=== PATIENT | male | born 1940 | race Caucasian/White ===

== ENCOUNTER → 2020-04-03 11:09 | Outpatient (BNVA) | payer MEDICARE, SELFPAY | PROVIDERS: PCP Internal Medicine Cardiovascular Disease; Referring Provider Internal Medicine Cardiovascular Disease; Visit Provider Internal Medicine | DX: I48.0 Paroxysmal atrial fibrillation (principal); Z51.81 Encounter for therapeutic drug level monitoring; Z79.01 Long term (current) use of anticoagulants | CPT/HCPCS: 85610; 99211 ==

== ENCOUNTER 2020-04-03 18:49 | Outpatient (REF) | payer MEDICARE, SELFPAY | END 2020-04-03 18:50 | disposition home or self-care (01) | LOC: HO.LNP 18:49 | PROVIDERS: Visit Provider Internal Medicine | DX: Z79.01 Long term (current) use of anticoagulants (principal) ==

== ENCOUNTER 2020-04-16 13:12 | Outpatient (REF) | payer MEDICARE, SELFPAY ==
--- NOTE | 2020-04-16 | US_ITS ---
EXAMINATION: NONINVASIVE ASSESSMENT OF THE ARTERIES OF BOTH LOWER EXTREMITIES ? CLINICAL INFORMATION: Claudication, peripheral vascular disease COMPARISON: None TECHNIQUE: The ankle/brachial indices of the distal posterior tibial and the dorsalis pedis arteries were obtained of the lower extremity arterial system bilaterally; along with pressures and pulse volume recordings at the ankle and duplex Doppler techniques of the common femoral, proximal femoral and proximal profunda arteries. The study was performed at rest. ? FINDINGS AT REST:? RIGHT LE. Right Ankle-Brachial Index: 1.23 (higher of the DP/PT) >0.97-1.25 = normal - no significant arterial disease 0.75-0.96 = mild peripheral arterial disease 0.50-0.74 = moderate peripheral arterial disease <0.50 = severe peripheral arterial disease <0.30 = critical arterial disease 2. SEGMENTAL PRESSURES: Ankle: PT 200 DP 200 3. PVR WAVEFORMS: Ankle: Normal 4. DIRECT DUPLEX: Common femoral: Biphasic, no stenosis Proximal femoral: Triphasic, no stenosis Mid femoral: Triphasic, no stenosis Distal femoral: Triphasic, no stenosis Proximal profunda: Triphasic, no stenosis Popliteal: Triphasic, atherosclerotic plaque with mild stenosis. Posterior tibial: Monophasic, atherosclerotic plaque with mild stenosis. LEFT LE. Left Ankle-Brachial Index: 1.23 (higher of the DP/PT) >0.97-1.25 = normal - no significant arterial disease 0.75-0.96 = mild peripheral arterial disease 0.50-0.74 = moderate peripheral arterial disease <0.50 = severe peripheral arterial disease <0.30 = critical arterial disease 2. SEGMENTAL PRESSURES: Ankle: PT 200 DP 200 3. PVR WAVEFORMS: Ankle: Normal 4. DIRECT DUPLEX: Common femoral: Triphasic, no stenosis Proximal femoral: Biphasic, no stenosis Mid femoral: Triphasic, no stenosis Distal femoral: Triphasic, no stenosis Proximal profunda: Triphasic, no stenosis Popliteal: Triphasic, no stenosis Posterior tibial: Monophasic, no stenosis There is a 4.6 x 2.2 x 4.1 cm Cerna's cyst in the left popliteal fossa. ? IMPRESSION: 1. Extensive atherosclerotic calcification throughout the arteries of the bilateral lower extremities. 2. Mild stenosis in the right popliteal and posterior tibial arteries.
--- NOTE | 2020-04-16 | US_ITS ---
EXAMINATION: US EXTRACRANIAL CAROTID DUPLEX, BILATERAL CLINICAL INFORMATION: Asymptomatic bilateral carotid artery stenosis COMPARISON: None TECHNIQUE: Real-time ultrasound and Doppler techniques (integrating B-mode 2-D vascular images, Doppler spectral analysis and color-flow Doppler imaging) were utilized to interrogate the extracranial carotid arteries, the vertebral arteries and proximal subclavian arteries bilaterally. The degree of stenosis is determined by criteria similar to NASCET. FINDINGS: Right Side: 1. There is calcified atherosclerotic plaque seen in the bifurcation/proximal ICA region. 2. The common carotid artery PSV proximally is 110 cm/s and distally 90.9 cm/s. 3. The proximal internal carotid artery velocities are 92.6 cm/s systolic and 17.6 cm/s diastolic. 4. The proximal external carotid artery PSV is 172 cm/s. 5. The vertebral artery shows antegrade flow. 6. The subclavian artery waveforms are normal. Left Side: 1. There is also atherosclerotic plaque seen in the bifurcation/proximal ICA region. 2. The common carotid artery PSV proximally is 112 cm/s and distally 1 cm/s. 3. The proximal internal carotid artery velocities are 161 cm/s systolic and 31.4 cm/s diastolic. There is flow artifact overlying the plaque within the proximal ICA. 4. The proximal external carotid artery PSV is 233 cm/s. 5. The vertebral artery shows antegrade flow. 6. The subclavian artery waveforms are normal. IMPRESSION: 1. RIGHT: Minimal, non-hemodynamically significant stenosis of the proximal right internal carotid artery corresponding to a 0-49% stenosis by velocity criteria. 2. LEFT: Moderate, hemodynamically significant stenosis of the proximal left internal carotid artery corresponding to a 50-79% stenosis by velocity criteria.
== END 2020-04-16 13:13 | disposition home or self-care (01) ==
LOC: HO.US 13:12
PROVIDERS: PCP Internal Medicine; Visit Provider Surgery Vascular Surgery
DX: I73.9 Peripheral vascular disease, unspecified (principal); I65.23 Occlusion and stenosis of bilateral carotid arteries
CPT/HCPCS: 93880; 93923; 93925

== ENCOUNTER → 2020-04-24 11:12 | Outpatient (BNVA) | payer MEDICARE, SELFPAY | PROVIDERS: PCP Internal Medicine; Visit Provider Internal Medicine | DX: I48.0 Paroxysmal atrial fibrillation (principal); Z51.81 Encounter for therapeutic drug level monitoring; Z79.01 Long term (current) use of anticoagulants | CPT/HCPCS: 85610; 99211 ==

== ENCOUNTER 2020-04-27 13:21 | Outpatient (REF) | payer MEDICARE, SELFPAY ==
--- NOTE | 2020-04-27 | XR_ITS ---
EXAMINATION: XR ABDOMEN KUB CLINICAL INDICATION: Renal stone COMPARISON: Previous KUB April 2019, renal ultrasound May [address] of the abdomen and pelvis April 2013 TECHNIQUE: AP view of the abdomen. FINDINGS: There are several densities projecting over the left kidney questionable for stones. The largest measures 3 x 10 mm and projects over the upper pole. No right renal stone is seen. The bowel gas pattern is normal. There are degenerative changes of the spine and hip joints. XR/XR KUB IMPRESSION: Question left renal stones.
== END 2020-04-27 13:22 | disposition home or self-care (01) ==
LOC: HO.HMGCX 13:21
PROVIDERS: PCP Internal Medicine; Visit Provider Physician Assistant Surgical
DX: N20.0 Calculus of kidney (principal)
CPT/HCPCS: 74018

== ENCOUNTER → 2020-05-15 11:19 | Outpatient (BNVA) | payer MEDICARE, SELFPAY | PROVIDERS: PCP Internal Medicine; Visit Provider Internal Medicine | DX: I48.0 Paroxysmal atrial fibrillation (principal); Z51.81 Encounter for therapeutic drug level monitoring; Z79.01 Long term (current) use of anticoagulants | CPT/HCPCS: 85610; 99211 ==

== ENCOUNTER → 2020-06-05 11:44 | Outpatient (BNVA) | payer MEDICARE, SELFPAY | PROVIDERS: PCP Internal Medicine; Visit Provider Internal Medicine | DX: I48.0 Paroxysmal atrial fibrillation (principal); Z51.81 Encounter for therapeutic drug level monitoring; Z79.01 Long term (current) use of anticoagulants | CPT/HCPCS: 85610; 99211 ==

== ENCOUNTER → 2020-06-09 08:48 | Outpatient (BNVA) | payer MEDICARE, SELFPAY | PROVIDERS: PCP Internal Medicine; Visit Provider Surgery Vascular Surgery | DX: I65.23 Occlusion and stenosis of bilateral carotid arteries (principal); I73.9 Peripheral vascular disease, unspecified | CPT/HCPCS: 99212 ==

== ENCOUNTER → 2020-06-23 11:16 | Outpatient (BNVA) | payer MEDICARE, SELFPAY | PROVIDERS: PCP Internal Medicine; Visit Provider Internal Medicine | DX: I48.0 Paroxysmal atrial fibrillation (principal); Z79.01 Long term (current) use of anticoagulants; Z51.81 Encounter for therapeutic drug level monitoring | CPT/HCPCS: 85610; 99211 ==

== ENCOUNTER → 2020-07-17 11:28 | Outpatient (BNVA) | payer MEDICARE, SELFPAY | PROVIDERS: PCP Internal Medicine; Visit Provider Internal Medicine | DX: I48.0 Paroxysmal atrial fibrillation (principal); Z51.81 Encounter for therapeutic drug level monitoring; Z79.01 Long term (current) use of anticoagulants | CPT/HCPCS: 85610; 99211 ==

== ENCOUNTER 2020-07-30 06:31 | Outpatient (REF) | payer MEDICARE, SELFPAY ==
[2020-07-30 11:31] LABS: Estimated Average Glucose 160 mg/dL; Hemoglobin A1c % 7.2 %
[2020-07-30 12:13] LABS: Cholesterol 143 mg/dL; HDL Cholesterol 31 mg/dL; LDL Cholesterol Calculated 80 mg/dl; Triglycerides 162 mg/dL
== END 2020-07-30 06:32 | disposition home or self-care (01) ==
LOC: HO.HMGCLDS 06:31
PROVIDERS: PCP Internal Medicine; Visit Provider Internal Medicine
DX: E11.9 Type 2 diabetes mellitus without complications (principal)
CPT/HCPCS: 36415; 80061; 83036

== ENCOUNTER → 2020-08-07 11:03 | Outpatient (BNVA) | payer MEDICARE, SELFPAY | PROVIDERS: PCP Internal Medicine; Visit Provider Internal Medicine | DX: I48.0 Paroxysmal atrial fibrillation (principal); Z51.81 Encounter for therapeutic drug level monitoring; Z79.01 Long term (current) use of anticoagulants | CPT/HCPCS: 85610; 99211 ==

== ENCOUNTER → 2020-09-04 11:08 | Outpatient (BNVA) | payer MEDICARE, SELFPAY | PROVIDERS: PCP Internal Medicine; Visit Provider Internal Medicine | DX: I48.0 Paroxysmal atrial fibrillation (principal); Z51.81 Encounter for therapeutic drug level monitoring; Z79.01 Long term (current) use of anticoagulants | CPT/HCPCS: 85610; 99211 ==

== ENCOUNTER → 2020-10-02 11:12 | Outpatient (BNVA) | payer MEDICARE, SELFPAY | PROVIDERS: PCP Internal Medicine; Visit Provider Internal Medicine | DX: I48.0 Paroxysmal atrial fibrillation (principal); Z51.81 Encounter for therapeutic drug level monitoring; Z79.01 Long term (current) use of anticoagulants | CPT/HCPCS: 85610; 99211 ==

== ENCOUNTER → 2020-10-30 11:14 | Outpatient (BNVA) | payer MEDICARE, SELFPAY | PROVIDERS: PCP Internal Medicine; Visit Provider Internal Medicine | DX: I48.0 Paroxysmal atrial fibrillation (principal); Z51.81 Encounter for therapeutic drug level monitoring; Z79.01 Long term (current) use of anticoagulants | CPT/HCPCS: 85610; 99211 ==

== ENCOUNTER → 2020-11-06 11:08 | Outpatient (BNVA) | payer MEDICARE, SELFPAY | PROVIDERS: PCP Internal Medicine; Visit Provider Internal Medicine | DX: I48.0 Paroxysmal atrial fibrillation (principal); Z79.01 Long term (current) use of anticoagulants; Z51.81 Encounter for therapeutic drug level monitoring | CPT/HCPCS: 85610; 99211 ==

== ENCOUNTER → 2020-11-16 12:32 | Outpatient (BNVA) | payer MEDICARE, SELFPAY | PROVIDERS: PCP Internal Medicine; Referring Provider Internal Medicine; Visit Provider Internal Medicine Cardiovascular Disease | DX: I48.0 Paroxysmal atrial fibrillation (principal); I10 Essential (primary) hypertension | CPT/HCPCS: 93005; 99212 ==

== ENCOUNTER → 2020-12-04 11:16 | Outpatient (BNVA) | payer MEDICARE, SELFPAY | PROVIDERS: PCP Internal Medicine; Visit Provider Internal Medicine | DX: I48.0 Paroxysmal atrial fibrillation (principal); Z51.81 Encounter for therapeutic drug level monitoring; Z79.01 Long term (current) use of anticoagulants | CPT/HCPCS: 85610; 99211 ==

== ENCOUNTER → 2021-01-01 11:12 | Outpatient (BNVA) | payer MEDICARE, SELFPAY | PROVIDERS: PCP Internal Medicine; Visit Provider Internal Medicine | DX: I48.0 Paroxysmal atrial fibrillation (principal); Z51.81 Encounter for therapeutic drug level monitoring; Z79.01 Long term (current) use of anticoagulants | CPT/HCPCS: 85610; 99211 ==

== ENCOUNTER → 2021-02-05 11:21 | Outpatient (BNVA) | payer MEDICARE, SELFPAY | PROVIDERS: PCP Internal Medicine; Visit Provider Internal Medicine | DX: I48.0 Paroxysmal atrial fibrillation (principal); Z51.81 Encounter for therapeutic drug level monitoring; Z79.01 Long term (current) use of anticoagulants | CPT/HCPCS: 85610; 99211 ==

== ENCOUNTER → 2021-03-05 11:19 | Outpatient (BNVA) | payer MEDICARE, SELFPAY | PROVIDERS: PCP Internal Medicine; Visit Provider Internal Medicine | DX: I48.0 Paroxysmal atrial fibrillation (principal); Z51.81 Encounter for therapeutic drug level monitoring; Z79.01 Long term (current) use of anticoagulants | CPT/HCPCS: 85610; 99211 ==

== ENCOUNTER → 2021-03-31 11:19 | Outpatient (BNVA) | payer MEDICARE, SELFPAY | PROVIDERS: PCP Internal Medicine; Visit Provider Internal Medicine | DX: I48.0 Paroxysmal atrial fibrillation (principal); Z51.81 Encounter for therapeutic drug level monitoring; Z79.01 Long term (current) use of anticoagulants | CPT/HCPCS: 85610; 99211 ==

== ENCOUNTER → 2021-04-16 11:15 | Outpatient (BNVA) | payer MEDICARE, SELFPAY | PROVIDERS: PCP Internal Medicine; Visit Provider Internal Medicine | DX: I48.0 Paroxysmal atrial fibrillation (principal); Z51.81 Encounter for therapeutic drug level monitoring; Z79.01 Long term (current) use of anticoagulants | CPT/HCPCS: 85610; 99211 ==

== ENCOUNTER → 2021-05-14 11:15 | Outpatient (BNVA) | payer MEDICARE, SELFPAY | PROVIDERS: PCP Internal Medicine; Visit Provider Internal Medicine | DX: I48.0 Paroxysmal atrial fibrillation (principal); Z51.81 Encounter for therapeutic drug level monitoring; Z79.01 Long term (current) use of anticoagulants | CPT/HCPCS: 85610; 99211 ==

== ENCOUNTER → 2021-06-11 11:19 | Outpatient (BNVA) | payer MEDICARE, SELFPAY | PROVIDERS: PCP Internal Medicine; Visit Provider Internal Medicine | DX: I48.0 Paroxysmal atrial fibrillation (principal); Z51.81 Encounter for therapeutic drug level monitoring; Z79.01 Long term (current) use of anticoagulants | CPT/HCPCS: 85610; 99211 ==

== ENCOUNTER 2021-07-01 09:40 | Outpatient (REF) | payer MEDICARE, SELFPAY ==
--- NOTE | ~2021-07-01 | US_ITS ---
EXAMINATION: US NONINVASIVE ASSESSMENT OF THE ARTERIES OF BOTH LOWER EXTREMITIES WITH ANKLE PRESSURE MEASUREMENTS, ANKLE BRACHIAL INDICES, PVR MEASUREMENTS US BILATERAL LOWER EXTREMITY DUPLEX CLINICAL INFORMATION: Bilateral claudication. TECHNIQUE: Ankle pressure measurements, ankle brachial indices and PVR tracings were obtained of the lower extremity arterial system bilaterally. In addition, duplex Doppler techniques with wave form analysis and measurement of velocities in the common femoral, profunda femoral, superficial femoral, popliteal and tibial arteries was performed. The study was performed only at rest. COMPARISON: 04/16/2020 FINDINGS: NONINVASIVE ASSESSMENT OF THE ARTERIES OF BOTH LOWER EXTREMITIES WITH ABIs: RIGHT LEG: Right ankle-brachial index: 1.13 though likely artificially elevated due to extensive vascular calcification. PVR (ankle): Dampened LEFT LEG: Ankle-brachial index: 1.13, though likely artificially elevated due to extensive vascular calcification. PVR (ankle): Dampened BILATERAL LOWER EXTREMITY DUPLEX ULTRASOUND: RIGHT LEG: Common femoral artery: 75 cm/s, Diastolic flow reversal: Yes Profunda femoris artery: 75.4 cm/s, Diastolic flow reversal: Yes Superficial femoral artery (proximal): 85.6 cm/s, Diastolic flow reversal: Yes Superficial femoral artery (mid): 104 cm/s, Diastolic flow reversal: Yes Superficial femoral artery (distal): 90.9 cm/s, Diastolic flow reversal: Yes Popliteal artery: 44.8 cm/s, Diastolic flow reversal: Yes Posterior tibial artery: 83.8 cm/s, Diastolic flow reversal: Yes LEFT LEG: Common femoral artery: 89.7 cm/s, Diastolic flow reversal: Yes Profunda femoris artery: 61.3 cm/s, Diastolic flow reversal: Yes Superficial femoral artery (proximal): 121 cm/s, Diastolic flow reversal: Yes Superficial femoral artery (mid): 108 cm/s, Diastolic flow reversal: Yes Superficial femoral artery (distal): 116 cm/s, Diastolic flow reversal: Yes Popliteal artery: 56.2 cm/s, Diastolic flow reversal: Yes Posterior tibial artery: 30.7 cm/s, Diastolic flow reversal: Yes ADDITIONAL: Within the left popliteal fossa is a 2.5 x 0.8 x 2.0 cm Cerna's cyst. US/US arterial duplex LE BI IMPRESSION: RIGHT LEG: CLIFFORD 1.13, though likely artificially elevated due to the extensive vascular calcification. No hemodynamically significant outflow stenosis identified on duplex. LEFT LEG: CLIFFORD 1.13, though likely artificially elevated due to the extensive vascular calcification. No hemodynamically significant outflow stenosis identified on duplex. CLIFFORD Reference: - >0.97-1.25 = normal - no significant arterial disease - 0.75-0.96 = mild peripheral arterial disease - 0.5-0.74 = moderate peripheral arterial disease - <0.50 = severe peripheral arterial disease
--- NOTE | ~2021-07-01 | US_ITS ---
EXAMINATION: US EXTRACRANIAL CAROTID DUPLEX, BILATERAL CLINICAL INFORMATION: Carotid artery stenosis. COMPARISON: 04/16/2020 and 12/21/2018. TECHNIQUE: Real-time ultrasound and Doppler techniques (integrating B-mode 2-D vascular images, Doppler spectral analysis and color-flow Doppler imaging) were utilized to interrogate the extracranial carotid arteries, the vertebral arteries and proximal subclavian arteries bilaterally. The degree of stenosis is determined by criteria similar to NASCET. FINDINGS: Right Side: 1. There is mild atherosclerotic plaque seen in the bifurcation/proximal ICA region. 2. The common carotid artery PSV proximally is 74.5 cm/s and distally 58.5 cm/s. 3. The proximal internal carotid artery velocities are 101 cm/s systolic and 15.2 cm/s diastolic. 4. The proximal external carotid artery PSV is 137 cm/s. 5. The vertebral artery shows antegrade flow. 6. The subclavian artery waveforms are normal. Left Side: 1. There is mild atherosclerotic plaque seen in the bifurcation/proximal ICA region. 2. The common carotid artery PSV proximally is 82.7 cm/s and distally 97.9 cm/s. 3. The proximal internal carotid artery velocities are 122 cm/s systolic and 23.6 cm/s diastolic. 4. The proximal external carotid artery PSV is 286 cm/s. 5. The vertebral artery shows antegrade flow. 6. The subclavian artery waveforms are normal. US/US carotid duplex BI IMPRESSION: 1. RIGHT: Minimal, non-hemodynamically significant stenosis of the proximal right internal carotid artery corresponding to a 0-49% stenosis by velocity criteria. 2. LEFT: Minimal, non-hemodynamically significant stenosis of the proximal left internal carotid artery corresponding to a 0-49% stenosis by velocity criteria. 3. There is a decrease in the severity of disease involving the left proximal internal carotid artery (degree of stenosis was previously measured at 50-79%). 4. Moderate, hemodynamically significant stenosis of the left external carotid artery. This is stable from the prior.
== END 2021-07-01 09:41 | disposition home or self-care (01) ==
LOC: HO.US 09:40
PROVIDERS: PCP Internal Medicine; Visit Provider Surgery Vascular Surgery
DX: I65.23 Occlusion and stenosis of bilateral carotid arteries (principal); I70.213 Atherosclerosis of native arteries of extremities with intermittent claudication, bilateral legs; Z86.73 Personal history of transient ischemic attack (TIA), and cerebral infarction without residual deficits
CPT/HCPCS: 93880; 93923; 93925

== ENCOUNTER → 2021-07-13 11:35 | Outpatient (BNVA) | payer MEDICARE, SELFPAY | PROVIDERS: PCP Internal Medicine; Visit Provider Internal Medicine | DX: I48.0 Paroxysmal atrial fibrillation (principal); Z51.81 Encounter for therapeutic drug level monitoring; Z79.01 Long term (current) use of anticoagulants | CPT/HCPCS: 85610; 99211 ==

== ENCOUNTER 2021-07-14 07:36 | Outpatient (REF) | payer MEDICARE, SELFPAY ==
[2021-07-14 12:16] LABS: Blood Urea Nitrogen 32 mg/dL (9-16); Calcium 9.3 mg/dL (8.4-10.2); Estimated Glomerular Filt Rate 44; Uric Acid 5.7 mg/dL (3.4-7.0)
[2021-07-14 12:38] LABS: Prostate Specific Antigen 4.31 ng/mL (<0.05-4.0)
== END 2021-07-14 07:37 | disposition home or self-care (01) ==
LOC: HO.HMGCLDS 07:36
PROVIDERS: PCP Internal Medicine; Visit Provider Urology
DX: N20.0 Calculus of kidney (principal); Z12.5 Encounter for screening for malignant neoplasm of prostate
CPT/HCPCS: 36415; 82310; 82565; 84153; 84520; 84550

== ENCOUNTER → 2021-07-20 08:52 | Outpatient (BNVA) | payer MEDICARE, SELFPAY | PROVIDERS: PCP Internal Medicine; Visit Provider Surgery Vascular Surgery | DX: I73.9 Peripheral vascular disease, unspecified (principal); I65.23 Occlusion and stenosis of bilateral carotid arteries | CPT/HCPCS: 99212 ==

== ENCOUNTER → 2021-07-23 11:19 | Outpatient (BNVA) | payer MEDICARE, SELFPAY | PROVIDERS: PCP Internal Medicine; Visit Provider Internal Medicine | DX: I48.0 Paroxysmal atrial fibrillation (principal); Z51.81 Encounter for therapeutic drug level monitoring; Z79.01 Long term (current) use of anticoagulants | CPT/HCPCS: 85610; 99211 ==

== ENCOUNTER → 2021-08-13 11:33 | Outpatient (BNVA) | payer MEDICARE, SELFPAY | PROVIDERS: PCP Internal Medicine; Visit Provider Internal Medicine | DX: I48.0 Paroxysmal atrial fibrillation (principal); Z51.81 Encounter for therapeutic drug level monitoring; Z79.01 Long term (current) use of anticoagulants | CPT/HCPCS: 85610; 99211 ==

== ENCOUNTER → 2021-09-10 11:12 | Outpatient (BNVA) | payer MEDICARE, SELFPAY | PROVIDERS: PCP Internal Medicine; Visit Provider Internal Medicine | DX: I48.0 Paroxysmal atrial fibrillation (principal); Z51.81 Encounter for therapeutic drug level monitoring; Z79.01 Long term (current) use of anticoagulants | CPT/HCPCS: 85610; 99211 ==

== ENCOUNTER → 2021-10-08 11:13 | Outpatient (BNVA) | payer MEDICARE, SELFPAY | PROVIDERS: PCP Internal Medicine; Visit Provider Internal Medicine | DX: I48.0 Paroxysmal atrial fibrillation (principal); Z51.81 Encounter for therapeutic drug level monitoring; Z79.01 Long term (current) use of anticoagulants | CPT/HCPCS: 85610; 99211 ==

== ENCOUNTER → 2021-11-05 11:12 | Outpatient (BNVA) | payer MEDICARE, SELFPAY | PROVIDERS: PCP Internal Medicine; Visit Provider Internal Medicine | DX: I48.0 Paroxysmal atrial fibrillation (principal); Z79.01 Long term (current) use of anticoagulants; Z51.81 Encounter for therapeutic drug level monitoring | CPT/HCPCS: 85610; 99211 ==

== ENCOUNTER → 2021-11-10 09:13 | Outpatient (REF) | payer MEDICARE, SELFPAY ==
--- NOTE | 2021-11-10 09:20 | CA_ITS ---
Transthoracic Echocardiogram Patient (Last, First, Middle): Frankie Valles D Gender: Male Date of : 1940 Age: 81 Procedure Date: 11/10/2021 Procedure Type: Transthoracic Echocardiogram Location: OP Height: 172.72 cm Weight: 88.45 kg BSA: 2.02 m2 Heart Rate: bpm BP: 11 / 60 mmHg Cart Pusher: AKUA Referring MD: Danis Garsia MD Radio News Writer: Danis Garsia MD Symptoms: I48.0 - Paroxysmal atrial fibrillation Study Quality: Adequate ECG Rhythm: Bradycardia Conclusions: - 1. Normal LV systolic function with impaired relaxation filling pattern 2. Normal cardiac valvular Doppler 3. No gross pericardial effusion Findings Left Ventricle Normal left ventricular size, thickness, and systolic function. The visually estimated ejection fraction is between 60-65%. Spectral Doppler is indicative of an impaired relaxation filling pattern. Right Ventricle Mildly increased right ventricular cavity size. Atria The left atrium was not well visualized. Interatrial shunt cannot be excluded. The right atrium was not well visualized. Aortic Valve The aortic valve was not well visualized. There is mild calcification of the aortic valve. There is no aortic valve stenosis. There is no aortic valve regurgitation. Mitral Valve Likely normal mitral valve structure and function. There is trace mitral valve regurgitation. There is no mitral valve stenosis. Pulmonic Valve The pulmonic valve was not well visualized. Tricuspid Valve The tricuspid valve was not well visualized. Tricuspid regurgitation envelope is inadequate for calculation of right ventricular systolic pressure. Great Vessels The aorta was not well visualized. The pulmonary artery was not well visualized. Venous The inferior vena cava is normal in size and collapses greater than 50% with inspiration. Pericardium/Pleural There is no evidence of pericardial effusion. Prior Study Comparison No significant change compared to prior study dated: 12/21/2018. Measurements 2D Linear Measurements IVSd: 0.83 0.6-0.9/0.6-1.0 cm LVIDd: 4.74 3.9-5.3/4.2-5.9 cm LVIDd Index: 2.35 2.4-3.2/2.2-3.1 cm/m2 LVIDs: 3.35 2.0-3.6 cm LVPWd: 0.77 0.7-1.1 cm LA Diam: 3.70 2.7-3.8/3.0-4.0 cm LAIDs Index: 1.83 1.5-2.3 cm/m2 LV Mass: 153.78 67-162/88-224 g LV Mass Index: 76.13 43-95/49-115 g/m2 LVOT Diam: 2.10 3.0+(-)1.3 cm 2D Systolic Function EF 4C: 57.30 >55% EF 2C: 66.20 >55% EF BiP: 61.50 >55% Mitral Valve MV Pk E: 0.84 MV PK A: 0.75 MV Decel Time: 190.00 E/A: 1.10 E'Lateral: 10.70 E'Medial: 6.96 E/E' Med: 12.10 E/E' Lat: 7.90 PHT: 56.00 MVA PHT: 3.93 Decel [place]: 4.44 Aortic Valve AoV Pk Derrek: 0.94 AoV Mn Derrek: 0.63 AoV VTI: 0.23 AoV Pk Grad: 4.00 Aov Mn Grad: 2.00 DELMI Cont.VTI: 3.19 LVOT LVOT Pk Derrek: 0.89 LVOT Mn Derrek: 0.68 LVOT VTI: 0.22 LVOT Pk Grad: 3.00 LVOT Mn Grad: 2.00 LVOT Diam: 2.10 LVOT Area: 3.46 Diastolic Function MV Pk E: 0.84 MV Pk A: 0.75 E/A: 1.10 E'Medial: 6.96 E/E' Med: 12.10 E' Laterial: 10.70 E/E' Lat: 7.90 Right Ventricle TAPSE (mm): 24.40 TVS' Derrek: 10.10 Tricuspid Valve RA Press: 8.00 Great Vessels Aorta Sinus of Valsalva: 3.18 2.0-3.5 cm Ao Asc: 3.50 2.1-3.4 cm Pulmonary Valve PV Pk Derrek: 0.93 Peak PV Grad: 3.00 Updated in Other Vendor System with Status of Final Danis Garsia MD electronically signed on 11/11/2021 5:19:27 PM with status of Final
== END ==
LOC: HO.CARD 09:13
PROVIDERS: Visit Provider Internal Medicine Cardiovascular Disease
DX: I48.0 Paroxysmal atrial fibrillation (principal)
CPT/HCPCS: 93306; Q9957

== ENCOUNTER → 2021-11-16 09:45 | Outpatient (BNVA) | payer MEDICARE, SELFPAY | PROVIDERS: PCP Internal Medicine; Referring Provider Internal Medicine; Visit Provider Internal Medicine Cardiovascular Disease | DX: I48.0 Paroxysmal atrial fibrillation (principal); I10 Essential (primary) hypertension | CPT/HCPCS: 93005; 99212 ==

== ENCOUNTER → 2021-11-19 11:33 | Outpatient (BNVA) | payer MEDICARE, SELFPAY | PROVIDERS: PCP Internal Medicine; Visit Provider Internal Medicine | DX: I48.0 Paroxysmal atrial fibrillation (principal); Z79.01 Long term (current) use of anticoagulants; Z51.81 Encounter for therapeutic drug level monitoring | CPT/HCPCS: 85610; 99211 ==

== ENCOUNTER 2021-12-16 06:25 | Outpatient (REF) | payer MEDICARE, SELFPAY ==
[2021-12-16 11:09] LABS: MANUAL DIFF FLAG NO
[2021-12-16 11:23] LABS: Basophils Percent Auto 0.2 % (0-2); Eosinophils Absolute Auto 0.1 X10*3/uL (0.0-0.4); Eosinophils Percent Auto 3.1 % (0-4); Hematocrit 35.2 % (42.0-52.0); Hemoglobin 11.4 g/dl (14.0-18.0); Imm Gran Abs Auto 0.01 X10*3/uL (0.00-0.03); Imm Gran Pct Auto 0.2 % (0.0-0.4); Lymphocytes Absolute Auto 1.1 X10*3/uL (1.2-4.9); Lymphocytes Percent Auto 24.6 % (20-40); Mean Corpuscular HGB Conc 32.4 g/dl (31.0-36.0); Mean Corpuscular Hemoglobin 31.8 pg (27.0-33.0); Mean Corpuscular Volume 98.1 fL (80.0-98.0); Mean Platelet Volume 10.9 fL (9.4-12.4); Monocytes Absolute Auto 0.4 X10*3/uL (0.1-1.2); Monocytes Percent Auto 9.4 % (2-11); Neutrophils Absolute Auto 2.8 x10*3/uL (2.0-8.3); Neutrophils Percent Auto 62.5 % (45-73); Platelet Count 138 X10*3/uL (160-400); Red Blood Count 3.59 X10*6/uL (4.60-5.80); Red Cell Distribution Width 13.4 % (11.0-16.0); White Blood Count 4.5 X10*3/uL (4.8-10.8)
[2021-12-16 11:41] LABS: Alanine Aminotransferase 14 U/L (0-40); Albumin Level 3.8 g/dL (3.5-5.0); Alkaline Phosphatase 55 U/L (39-117); Anion Gap 12 (12-20); Aspartate Amino Transferase 20 U/L (5-37); Bilirubin Total 0.5 mg/dL (0.0-1.0); Blood Urea Nitrogen 33 mg/dL (9-16); Calcium 8.7 mg/dL (8.4-10.2); Carbon Dioxide 23 mmol/L (22-29); Chloride 108 mmol/L (96-108); Cholesterol 142 mg/dL; Estimated Glomerular Filt Rate 41; Glucose Fasting 114 mg/dL (60-99); HDL Cholesterol 30 mg/dL; LDL Cholesterol Calculated 84 mg/dl; Potassium 4.5 mmol/L (3.3-5.1); Sodium 138 mmol/L (135-145); Total Protein 6.2 g/dL (6.5-8.0); Triglycerides 143 mg/dL
[2021-12-16 11:47] LABS: Creatinine Urine 134.44 mg/dL; Microalbum/Creatinine Ratio Ur 346.6 ug/mg cr
[2021-12-16 11:51] LABS: Estimated Average Glucose 166 mg/dL; Hemoglobin A1c % 7.4 %
[2021-12-16 12:03] LABS: Thyroid Stimulating Hormone 6.09 uIU/mL (0.32-4.0)
== END 2021-12-16 06:26 | disposition home or self-care (01) ==
LOC: HO.HMGCLDS 06:25
PROVIDERS: Visit Provider Internal Medicine
DX: Z00.00 Encounter for general adult medical examination without abnormal findings (principal); Z13.0 Encounter for screening for diseases of the blood and blood-forming organs and certain disorders involving the immune mechanism; E11.69 Type 2 diabetes mellitus with other specified complication; E66.01 Morbid (severe) obesity due to excess calories
CPT/HCPCS: 36415; 80053; 80061; 82043; 83036; 84443; 85025

== ENCOUNTER → 2021-12-17 11:18 | Outpatient (BNVA) | payer MEDICARE, SELFPAY | PROVIDERS: PCP Internal Medicine; Visit Provider Internal Medicine | DX: I48.0 Paroxysmal atrial fibrillation (principal); Z79.01 Long term (current) use of anticoagulants; Z51.81 Encounter for therapeutic drug level monitoring | CPT/HCPCS: 85610; 99211 ==

== ENCOUNTER → 2022-01-14 11:22 | Outpatient (BNVA) | payer MEDICARE, SELFPAY | PROVIDERS: PCP Internal Medicine; Visit Provider Internal Medicine | DX: I48.0 Paroxysmal atrial fibrillation (principal); Z51.81 Encounter for therapeutic drug level monitoring; Z79.01 Long term (current) use of anticoagulants | CPT/HCPCS: 85610; 99211 ==

== ENCOUNTER → 2022-01-28 11:11 | Outpatient (BNVA) | payer MEDICARE, SELFPAY | PROVIDERS: PCP Internal Medicine; Visit Provider Internal Medicine | DX: I48.0 Paroxysmal atrial fibrillation (principal); Z79.01 Long term (current) use of anticoagulants; Z51.81 Encounter for therapeutic drug level monitoring | CPT/HCPCS: 85610; 99211 ==

== ENCOUNTER → 2022-02-25 11:13 | Outpatient (BNVA) | payer MEDICARE, SELFPAY | PROVIDERS: PCP Internal Medicine; Visit Provider Internal Medicine | DX: I48.0 Paroxysmal atrial fibrillation (principal); Z79.01 Long term (current) use of anticoagulants; Z51.81 Encounter for therapeutic drug level monitoring | CPT/HCPCS: 85610; 99211 ==

== ENCOUNTER → 2022-03-25 11:23 | Outpatient (BNVA) | payer MEDICARE, SELFPAY | PROVIDERS: PCP Internal Medicine; Visit Provider Internal Medicine | DX: I48.0 Paroxysmal atrial fibrillation (principal); Z79.01 Long term (current) use of anticoagulants; Z51.81 Encounter for therapeutic drug level monitoring | CPT/HCPCS: 85610; 99211 ==

== ENCOUNTER 2022-03-28 08:35 | Emergency (ER) | payer MEDICARE, SELFPAY ==
--- NOTE | ~2022-03-28 | XR_ITS ---
EXAMINATION: XR CHEST CLINICAL INFORMATION: Upper respiratory tract infection COMPARISON: None TECHNIQUE: 2 views of the chest were obtained. FINDINGS: Lungs grossly clear. There may be slight chronic blunting at the static sulci. Heart size normal with normal caliber pulmonary vessels. There is spondylitic change in the thoracic spine. XR/XR chest 2V IMPRESSION: No active disease.
[2022-03-28 09:36] VITALS: BP 141/64; PULSE 73; RESP 20; TEMP 37.6; O2SAT 92; BMI 29.6
[2022-03-28 09:53] LABS: COVID-19 Test Positive (Negative); IDNOW Serial# 9DB6401D
[2022-03-28 10:01] LABS: MANUAL DIFF FLAG NO
[2022-03-28 10:07] LABS: Basophils Percent Auto 0.2 % (0-2); Eosinophils Percent Auto 0.2 % (0-4); Hematocrit 39.1 % (42.0-52.0); Hemoglobin 12.7 g/dl (14.0-18.0); Imm Gran Abs Auto 0.01 X10*3/uL (0.00-0.03); Imm Gran Pct Auto 0.2 % (0.0-0.4); Lymphocytes Absolute Auto 0.6 X10*3/uL (1.2-4.9); Lymphocytes Percent Auto 9.7 % (20-40); Mean Corpuscular HGB Conc 32.5 g/dl (31.0-36.0); Mean Corpuscular Hemoglobin 31.8 pg (27.0-33.0); Mean Platelet Volume 10.7 fL (9.4-12.4); Monocytes Absolute Auto 0.7 X10*3/uL (0.1-1.2); Monocytes Percent Auto 11.9 % (2-11); Neutrophils Absolute Auto 4.5 x10*3/uL (2.0-8.3); Neutrophils Percent Auto 77.8 % (45-73); Platelet Count 111 X10*3/uL (160-400); Red Blood Count 3.99 X10*6/uL (4.60-5.80); Red Cell Distribution Width 13.4 % (11.0-16.0); White Blood Count 5.8 X10*3/uL (4.8-10.8)
[2022-03-28 10:16] LABS: Glucose, Whole Blood 119 mg/dL (60-115)
[2022-03-28 10:16] LABS: Anion Gap 16 (12-20); Blood Urea Nitrogen 23 mg/dL (9-16); Calcium 8.7 mg/dL (8.4-10.2); Carbon Dioxide 22 mmol/L (22-29); Chloride 103 mmol/L (96-108); Creatinine Clr Calc Pharmacy 40.6; Estimated Glomerular Filt Rate 44; Glucose Random 121 mg/dL (60-115); Potassium 4.6 mmol/L (3.3-5.1); Sodium 136 mmol/L (135-145)
== END 2022-03-28 16:11 | disposition left against medical advice (07) ==
PROVIDERS: Emergency Provider Emergency Medicine; PCP Internal Medicine
DX: U07.1 COVID-19 (principal); E11.649 Type 2 diabetes mellitus with hypoglycemia without coma; R50.9 Fever, unspecified; I10 Essential (primary) hypertension; E78.5 Hyperlipidemia, unspecified; I48.0 Paroxysmal atrial fibrillation; Z79.01 Long term (current) use of anticoagulants
CPT/HCPCS: 71046; 80048; 82947; 85025; 87635; 99281; 99283

== ENCOUNTER → 2022-04-22 11:18 | Outpatient (BNVA) | payer MEDICARE, SELFPAY | PROVIDERS: PCP Internal Medicine; Visit Provider Internal Medicine | DX: I48.0 Paroxysmal atrial fibrillation (principal); Z51.81 Encounter for therapeutic drug level monitoring; Z79.01 Long term (current) use of anticoagulants | CPT/HCPCS: 85610; 99211 ==

== ENCOUNTER → 2022-05-06 11:17 | Outpatient (BNVA) | payer MEDICARE, SELFPAY | PROVIDERS: PCP Internal Medicine; Visit Provider Internal Medicine | DX: I48.0 Paroxysmal atrial fibrillation (principal); Z79.01 Long term (current) use of anticoagulants; Z51.81 Encounter for therapeutic drug level monitoring | CPT/HCPCS: 85610; 99211 ==

== ENCOUNTER → 2022-06-17 11:16 | Outpatient (BNVA) | payer MEDICARE, SELFPAY | PROVIDERS: PCP Internal Medicine; Visit Provider Internal Medicine | DX: I48.0 Paroxysmal atrial fibrillation (principal); Z79.01 Long term (current) use of anticoagulants; Z51.81 Encounter for therapeutic drug level monitoring | CPT/HCPCS: 85610; 99211 ==

== ENCOUNTER 2022-07-12 08:06 | Outpatient (REF) | payer MEDICARE, SELFPAY ==
--- NOTE | ~2022-07-12 | XR_ITS ---
EXAMINATION: XR ABDOMEN KUB CLINICAL INDICATION: Calculus of kidney COMPARISON: Abdominal x-ray on 04/27/2020 TECHNIQUE: AP view of the abdomen. FINDINGS: The bowel gas pattern is normal with no evidence of ileus or obstruction. No there are atherosclerotic calcifications in the pelvis. The bones are unremarkable. XR/XR KUB IMPRESSION: No definite renal calculi are identified.
[2022-07-12 11:44] LABS: Cholesterol 156 mg/dL; Glucose Fasting 151 mg/dL (60-99); HDL Cholesterol 29 mg/dL; LDL Cholesterol Calculated 93 mg/dl; Triglycerides 171 mg/dL
[2022-07-12 11:56] LABS: Estimated Average Glucose 169 mg/dL; Hemoglobin A1c % 7.5 %
[2022-07-12 12:55] LABS: Prostate Specific Antigen 4.14 ng/mL (<0.05-4.0)
== END 2022-07-12 08:07 | disposition home or self-care (01) ==
LOC: HO.HMGCX 08:06
PROVIDERS: PCP Internal Medicine; Visit Provider Physician Assistant Surgical
DX: Z12.5 Encounter for screening for malignant neoplasm of prostate (principal); R97.20 Elevated prostate specific antigen [PSA]; E11.65 Type 2 diabetes mellitus with hyperglycemia; E78.5 Hyperlipidemia, unspecified; N20.0 Calculus of kidney
CPT/HCPCS: 36415; 74018; 80061; 82947; 83036; 84153

== ENCOUNTER → 2022-07-15 11:07 | Outpatient (BNVA) | payer MEDICARE, SELFPAY | PROVIDERS: PCP Internal Medicine; Visit Provider Internal Medicine | DX: I48.0 Paroxysmal atrial fibrillation (principal); Z79.01 Long term (current) use of anticoagulants; Z51.81 Encounter for therapeutic drug level monitoring | CPT/HCPCS: 85610; 99211 ==

== ENCOUNTER 2022-07-28 08:46 | Outpatient (REF) | payer MEDICARE, SELFPAY ==
--- NOTE | ~2022-07-28 | US_ITS ---
EXAMINATION: ANKLE-BRACHIAL INDICES SINGLE LEVEL PULSE VOLUME RECORDING ARTERIAL DUPLEX BILATERAL LEGS CLINICAL INFORMATION: Peripheral vascular disease. COMPARISON: 07/01/2021 TECHNIQUE: Ankle-brachial indices and PVR at the ankle were obtained. Duplex Doppler of the bilateral lower extremity arterial systems was performed. FINDINGS: RIGHT: Ankle-brachial index: 1.2 PVR: Normal Common femoral: PSV 101 cm/s. Triphasic waveform. Deep femoral: PSV 68 cm/s. Biphasic waveform. Proximal superficial femoral: PSV 87 cm/s. Triphasic waveform. Mid superficial femoral: PSV 97 cm/s. Triphasic waveform. Distal superficial femoral: PSV 83 cm/s. Triphasic waveform. Popliteal: PSV 59 cm/s. Triphasic waveform. Posterior tibial: PSV 149 cm/s. Monophasic waveform. Peroneal: Not seen. LEFT: Ankle-brachial index: 1.2 PVR: Normal Common femoral: PSV 97 cm/s. Biphasic waveform. Deep femoral: PSV 91 cm/s. Biphasic waveform. Proximal superficial femoral: PSV 101 cm/s. Biphasic waveform. Mid superficial femoral: PSV 107 cm/s. Biphasic waveform. Distal superficial femoral: PSV 76 cm/s. Biphasic waveform. Popliteal: PSV 83 cm/s. Biphasic waveform. Posterior tibial: PSV 72 cm/s. Monophasic waveform. Peroneal: Not seen. US/US arterial duplex LE BI IMPRESSION: Preserved ankle-brachial indices (dorsalis pedis) with normal PVR waveforms. There is evidence of significant posterior tibial disease bilaterally on Doppler as well as with the posterior tibial brachial indices (0.76). There is no evidence of hemodynamically significant inflow disease or femoropopliteal disease by Doppler.
--- NOTE | ~2022-07-28 | US_ITS ---
EXAMINATION: ANKLE-BRACHIAL INDICES SINGLE LEVEL PULSE VOLUME RECORDING ARTERIAL DUPLEX BILATERAL LEGS CLINICAL INFORMATION: Peripheral vascular disease. COMPARISON: 07/01/2021 TECHNIQUE: Ankle-brachial indices and PVR at the ankle were obtained. Duplex Doppler of the bilateral lower extremity arterial systems was performed. FINDINGS: RIGHT: Ankle-brachial index: 1.2 PVR: Normal Common femoral: PSV 101 cm/s. Triphasic waveform. Deep femoral: PSV 68 cm/s. Biphasic waveform. Proximal superficial femoral: PSV 87 cm/s. Triphasic waveform. Mid superficial femoral: PSV 97 cm/s. Triphasic waveform. Distal superficial femoral: PSV 83 cm/s. Triphasic waveform. Popliteal: PSV 59 cm/s. Triphasic waveform. Posterior tibial: PSV 149 cm/s. Monophasic waveform. Peroneal: Not seen. LEFT: Ankle-brachial index: 1.2 PVR: Normal Common femoral: PSV 97 cm/s. Biphasic waveform. Deep femoral: PSV 91 cm/s. Biphasic waveform. Proximal superficial femoral: PSV 101 cm/s. Biphasic waveform. Mid superficial femoral: PSV 107 cm/s. Biphasic waveform. Distal superficial femoral: PSV 76 cm/s. Biphasic waveform. Popliteal: PSV 83 cm/s. Biphasic waveform. Posterior tibial: PSV 72 cm/s. Monophasic waveform. Peroneal: Not seen. US/US CLIFFORD complete IMPRESSION: Preserved ankle-brachial indices (dorsalis pedis) with normal PVR waveforms. There is evidence of significant posterior tibial disease bilaterally on Doppler as well as with the posterior tibial brachial indices (0.76). There is no evidence of hemodynamically significant inflow disease or femoropopliteal disease by Doppler.
== END 2022-07-28 08:47 | disposition home or self-care (01) ==
LOC: HO.US 08:46
PROVIDERS: Visit Provider Surgery Vascular Surgery
DX: I70.213 Atherosclerosis of native arteries of extremities with intermittent claudication, bilateral legs (principal)
CPT/HCPCS: 93923; 93925

== ENCOUNTER → 2022-08-05 10:59 | Outpatient (BNVA) | payer MEDICARE, SELFPAY | PROVIDERS: PCP Internal Medicine; Visit Provider Internal Medicine | DX: I48.0 Paroxysmal atrial fibrillation (principal); Z79.01 Long term (current) use of anticoagulants; Z51.81 Encounter for therapeutic drug level monitoring | CPT/HCPCS: 85610; 99211 ==

== ENCOUNTER → 2022-09-02 11:23 | Outpatient (BNVA) | payer MEDICARE, SELFPAY | PROVIDERS: PCP Internal Medicine; Visit Provider Internal Medicine | DX: I48.0 Paroxysmal atrial fibrillation (principal); Z79.01 Long term (current) use of anticoagulants; Z51.81 Encounter for therapeutic drug level monitoring | CPT/HCPCS: 85610; 99211 ==

== ENCOUNTER → 2022-09-29 09:34 | Outpatient (BNVA) | payer MEDICARE, SELFPAY | PROVIDERS: PCP Internal Medicine; Visit Provider Surgery Vascular Surgery | DX: I73.9 Peripheral vascular disease, unspecified (principal); Z79.82 Long term (current) use of aspirin; Z79.01 Long term (current) use of anticoagulants; Z79.899 Other long term (current) drug therapy | CPT/HCPCS: 99212 ==

== ENCOUNTER → 2022-09-30 11:45 | Outpatient (BNVA) | payer MEDICARE, SELFPAY | PROVIDERS: PCP Internal Medicine; Visit Provider Internal Medicine | DX: I48.0 Paroxysmal atrial fibrillation (principal); Z79.01 Long term (current) use of anticoagulants; Z51.81 Encounter for therapeutic drug level monitoring | CPT/HCPCS: 85610; 99211 ==

== ENCOUNTER → 2022-10-28 11:16 | Outpatient (BNVA) | payer MEDICARE, SELFPAY | PROVIDERS: PCP Internal Medicine; Visit Provider Internal Medicine | DX: I48.0 Paroxysmal atrial fibrillation (principal); Z79.01 Long term (current) use of anticoagulants; Z51.81 Encounter for therapeutic drug level monitoring | CPT/HCPCS: 85610; 99211 ==

== ENCOUNTER → 2022-12-02 11:22 | Outpatient (BNVA) | payer MEDICARE, SELFPAY | PROVIDERS: PCP Internal Medicine; Visit Provider Internal Medicine | DX: I48.0 Paroxysmal atrial fibrillation (principal); Z79.01 Long term (current) use of anticoagulants; Z51.81 Encounter for therapeutic drug level monitoring | CPT/HCPCS: 85610; 99211 ==

== ENCOUNTER → 2022-12-07 09:41 | Outpatient (BNVA) | payer MEDICARE, SELFPAY | PROVIDERS: PCP Internal Medicine; Referring Provider Internal Medicine; Visit Provider Internal Medicine Cardiovascular Disease | DX: I48.0 Paroxysmal atrial fibrillation (principal); I10 Essential (primary) hypertension; E11.9 Type 2 diabetes mellitus without complications; Z79.01 Long term (current) use of anticoagulants | CPT/HCPCS: 93005; 99212 ==

== ENCOUNTER 2022-12-30 06:14 | Outpatient (REF) | payer MEDICARE, SELFPAY ==
[2022-12-30 11:29] LABS: MANUAL DIFF FLAG NO
[2022-12-30 11:40] LABS: Basophils Percent Auto 0.3 % (0-2); Eosinophils Absolute Auto 0.1 X10*3/uL (0.0-0.4); Eosinophils Percent Auto 3.1 % (0-4); Hematocrit 34.1 % (42.0-52.0); Hemoglobin 11.1 g/dl (14.0-18.0); Imm Gran Abs Auto 0.01 X10*3/uL (0.00-0.03); Imm Gran Pct Auto 0.3 % (0.0-0.4); Lymphocytes Absolute Auto 1.1 X10*3/uL (1.2-4.9); Lymphocytes Percent Auto 27.6 % (20-40); Mean Corpuscular HGB Conc 32.6 g/dl (31.0-36.0); Mean Corpuscular Hemoglobin 32.4 pg (27.0-33.0); Mean Corpuscular Volume 99.4 fL (80.0-98.0); Mean Platelet Volume 11.4 fL (9.4-12.4); Monocytes Absolute Auto 0.4 X10*3/uL (0.1-1.2); Monocytes Percent Auto 9.4 % (2-11); Neutrophils Absolute Auto 2.3 x10*3/uL (2.0-8.3); Neutrophils Percent Auto 59.3 % (45-73); Platelet Count 118 X10*3/uL (160-400); Red Blood Count 3.43 X10*6/uL (4.60-5.80); Red Cell Distribution Width 13.7 % (11.0-16.0); White Blood Count 3.8 X10*3/uL (4.8-10.8)
[2022-12-30 12:11] LABS: Alanine Aminotransferase 12 U/L (0-40); Albumin Level 3.6 g/dL (3.5-5.0); Alkaline Phosphatase 50 U/L (39-117); Anion Gap 13 (12-20); Aspartate Amino Transferase 22 U/L (5-37); Bilirubin Total 0.7 mg/dL (0.0-1.0); Blood Urea Nitrogen 25 mg/dL (9-16); Carbon Dioxide 20 mmol/L (22-29); Chloride 110 mmol/L (96-108); Cholesterol 140 mg/dL; Estimated Average Glucose 148 mg/dL; Estimated Glomerular Filt Rate 43; Glucose Fasting 86 mg/dL (60-99); HDL Cholesterol 28 mg/dL; Hemoglobin A1c % 6.8 %; LDL Cholesterol Calculated 80 mg/dl; Potassium 4.4 mmol/L (3.3-5.1); Sodium 139 mmol/L (135-145); Total Protein 6.4 g/dL (6.5-8.0); Triglycerides 162 mg/dL
[2022-12-30 12:27] LABS: Thyroid Stimulating Hormone 5.38 uIU/mL (0.32-4.0)
[2022-12-30 12:57] LABS: Creatinine Urine 90.37 mg/dL; Microalbum/Creatinine Ratio Ur 549.9 ug/mg cr
== END 2022-12-30 06:15 | disposition home or self-care (01) ==
LOC: HO.HMGCLDS 06:14
PROVIDERS: PCP Internal Medicine; Visit Provider Internal Medicine
DX: N28.9 Disorder of kidney and ureter, unspecified (principal); E66.01 Morbid (severe) obesity due to excess calories; E03.9 Hypothyroidism, unspecified; D64.9 Anemia, unspecified; E78.5 Hyperlipidemia, unspecified; E11.65 Type 2 diabetes mellitus with hyperglycemia
CPT/HCPCS: 36415; 80053; 80061; 82043; 83036; 84443; 85025

== ENCOUNTER 2023-01-13 11:13 | Outpatient (AMB) | payer MEDICARE, SELFPAY ==
--- NOTE | 2023-01-13 11:29 | MHC.OFFVISCO ---
Intake Intake Visit Reasons: Anticoagulation Allergies environmental allergies Adverse Reaction (Intermediate, Verified 01/13/23 11:25) Itchy Eyes Medication List - Last Reconciled 01/13/23 by Noreen Tabor, RN ascorbate calcium (vitamin C) 500 mg PO DAILY atenolol 25 mg PO DAILY atorvastatin 10 mg PO BEDTIME blood sugar diagnostic (FreeStyle Lite Strips) USE 1 STRIP TO CHECK BLOOD GLUCOSE ONCE DAILY clopidogrel 75 mg PO DAILY 90 days flaxseed oil 1,000 mg PO DAILY gabapentin 100 mg PO TID glimepiride 2 mg PO BID 90 days glucosamine-chondroitin 250-200 mg (Osteo Bi-Flex) 2 tabs PO TID lisinopril 2.5 mg PO DAILY metformin 1,000 mg PO BID multivitamin (Daily Multi-Vitamin tablet) 1 tab PO DAILY omega-3 fatty acids (Fish Oil Concentrate) 1,000 mg PO DAILY [osteo bioflex PO] pioglitazone 30 mg PO DAILY 30 days tamsulosin 0.4 mg PO DAILY warfarin See Protocol 4 mg orally 1-2 per day; Nursing Note INR 3.2?? out of therapeutic range- HAS NOT HAD USUAL GREENS , AND LESS WITH HOT WEATHER Medications and supplements reviewed Patient status: WELL Medications or supplements: NO CHANGES Diet: GOOD Denies any signs and symptoms of bleeding or clotting or unusual bruising Bleeding, bruising, clotting discussed Nutritional guidance given: EAT GREENS TODAY AND TOMORROW Dose: KEEP SAME F/U INR Date : 1 MONTH ?? Patient verbalizing understanding of instructions given. 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
[2023-01-13 11:30] LABS: Prothrombin Time Whole Bld POC 38.5 sec (11.1-13.5); ~PT, ~INR - Anti Coag Clinic 3.2 (0.9-1.1)
== END 2023-01-13 11:38 | disposition home or self-care (01) ==
LOC: HO.ACS 11:13
PROVIDERS: PCP Internal Medicine; Visit Provider Internal Medicine
DX: Z79.01 Long term (current) use of anticoagulants (principal)

== ENCOUNTER → 2023-01-13 11:13 | Outpatient (BNVA) | payer MEDICARE, SELFPAY | PROVIDERS: PCP Internal Medicine; Visit Provider Internal Medicine | DX: I48.0 Paroxysmal atrial fibrillation (principal); Z79.01 Long term (current) use of anticoagulants; Z51.81 Encounter for therapeutic drug level monitoring | CPT/HCPCS: 85610; 99211 ==

== ENCOUNTER 2023-02-10 11:11 | Outpatient (AMB) | payer MEDICARE, SELFPAY ==
[2023-02-10 11:21] LABS: Prothrombin Time Whole Bld POC 33.2 sec (11.1-13.5); ~PT, ~INR - Anti Coag Clinic 2.8 (0.9-1.1)
--- NOTE | 2023-02-10 11:25 | MHC.OFFVISCO ---
Intake Intake Visit Reasons: Anticoagulation Allergies environmental allergies Adverse Reaction (Intermediate, Verified 02/10/23 11:16) Itchy Eyes Medication List - Last Reconciled 02/10/23 by Bethany Kpaoor, RN ascorbate calcium (vitamin C) 500 mg PO DAILY atenolol 25 mg PO DAILY atorvastatin 10 mg PO BEDTIME blood sugar diagnostic (FreeStyle Lite Strips) USE 1 STRIP TO CHECK BLOOD GLUCOSE ONCE DAILY clopidogrel 75 mg PO DAILY 90 days flaxseed oil 1,000 mg PO DAILY gabapentin 100 mg PO TID glimepiride 2 mg PO BID 90 days glucosamine-chondroitin 250-200 mg (Osteo Bi-Flex) 2 tabs PO TID lisinopril 2.5 mg PO DAILY metformin 1,000 mg PO BID multivitamin (Daily Multi-Vitamin tablet) 1 tab PO DAILY omega-3 fatty acids (Fish Oil Concentrate) 1,000 mg PO DAILY [osteo bioflex PO] pioglitazone 30 mg PO DAILY 30 days tamsulosin 0.4 mg PO DAILY warfarin See Protocol 4 mg orally 1-2 per day; Nursing Note Amb to ACS feeling well Medications and supplements reviewed No changes in health, diet, medications, or supplements Denies any unusual signs and symptoms of bruising, bleeding Denies any new Chest pain, SOB, or clotting INR: 2.8 in therapeutic range Nutritional guidance given: balance greens and reds in diet, be consistence Dose: continue usual dosing;4mg x 2 days and 6mg x 5 days F/U INR: 5 weeks Patient verbalizes understanding of instructions given with accurate read back/ teach back of dosing Anti-Coag Initial Assessment Social Hx Patient Tobacco Use Status: Never used Tobacco alcohol intake: never Coding Level of Care Code Est Patient Level 1 Diagnoses Current use of anticoagulant therapy Z79.01 Time Spent (min) 15 Assessment & Plan Assessment & Plan (1) Current use of anticoagulant therapy: 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
== END 2023-02-10 11:30 | disposition home or self-care (01) ==
LOC: HO.ACS 11:11
PROVIDERS: PCP Internal Medicine; Visit Provider Internal Medicine
DX: Z79.01 Long term (current) use of anticoagulants (principal)

== ENCOUNTER → 2023-02-10 11:11 | Outpatient (BNVA) | payer MEDICARE, SELFPAY | PROVIDERS: PCP Internal Medicine; Visit Provider Internal Medicine | DX: I48.0 Paroxysmal atrial fibrillation (principal); Z79.01 Long term (current) use of anticoagulants; Z51.81 Encounter for therapeutic drug level monitoring | CPT/HCPCS: 85610; 99211 ==

== ENCOUNTER 2023-03-17 11:06 | Outpatient (AMB) | payer MEDICARE, SELFPAY ==
[2023-03-17 11:26] LABS: Prothrombin Time Whole Bld POC 39.4 sec (11.1-13.5); ~PT, ~INR - Anti Coag Clinic 3.3 (0.9-1.1)
--- NOTE | 2023-03-17 11:31 | MHC.OFFVISCO ---
Intake Intake Visit Reasons: Anticoagulation Allergies environmental allergies Adverse Reaction (Intermediate, Verified 03/17/23 11:21) Itchy Eyes Medication List - Last Reconciled 03/17/23 by Bethany Kapoor, RN ascorbate calcium (vitamin C) 500 mg PO DAILY atenolol 25 mg PO DAILY atorvastatin 10 mg PO BEDTIME blood sugar diagnostic (FreeStyle Lite Strips) USE 1 STRIP TO CHECK BLOOD GLUCOSE ONCE DAILY clopidogrel 75 mg PO DAILY 90 days flaxseed oil 1,000 mg PO DAILY gabapentin 100 mg PO TID glimepiride 2 mg PO BID 90 days glucosamine-chondroitin 250-200 mg (Osteo Bi-Flex) 2 tabs PO TID lisinopril 2.5 mg PO DAILY metformin 1,000 mg PO BID multivitamin (Daily Multi-Vitamin tablet) 1 tab PO DAILY omega-3 fatty acids (Fish Oil Concentrate) 1,000 mg PO DAILY [osteo bioflex PO] pioglitazone 30 mg PO DAILY 30 days tamsulosin 0.4 mg PO DAILY warfarin See Protocol 4 mg orally 1-2 per day; Nursing Note Amb to ACS feeling well Medications and supplements reviewed No changes in health, diet, medications, or supplements, although sts he has been eating tomatoes like candy ([place] tomatoes increase INR) Denies any unusual signs and symptoms of bruising, bleeding Denies any new Chest pain, SOB, or clotting INR: 3.3 above therapeutic range Nutritional guidance given: dark leafy green today, no tomatoes today then balance greens and reds in diet Dose: pt likes the tomatoes and has more coming will decrease dose for tomorrow (already took warfarin today) to 4mg then resume usual dosing tomorrow; 4mg x 2 days and 6mg x 5 days F/U INR: 4 weeks Patient verbalizes understanding of instructions given with accurate read back/ teach back of dosing Anti-Coag Initial Assessment Social Hx Patient Tobacco Use Status: Never used Tobacco alcohol intake: never Coding Level of Care Code Est Patient Level 1 Diagnoses Current use of anticoagulant therapy Z79.01 Time Spent (min) 15 Assessment & Plan Assessment & Plan (1) Current use of anticoagulant therapy: 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
== END 2023-03-17 11:37 | disposition home or self-care (01) ==
LOC: HO.ACS 11:06
PROVIDERS: PCP Internal Medicine; Visit Provider Internal Medicine
DX: Z79.01 Long term (current) use of anticoagulants (principal)

== ENCOUNTER → 2023-03-17 11:06 | Outpatient (BNVA) | payer MEDICARE, SELFPAY | PROVIDERS: PCP Internal Medicine; Visit Provider Internal Medicine | DX: I48.0 Paroxysmal atrial fibrillation (principal); Z79.01 Long term (current) use of anticoagulants; Z51.81 Encounter for therapeutic drug level monitoring | CPT/HCPCS: 85610; 99211 ==

== ENCOUNTER 2023-04-14 11:10 | Outpatient (AMB) | payer MEDICARE, SELFPAY ==
--- NOTE | 2023-04-14 11:22 | MHC.OFFVISCO ---
Intake Intake Visit Reasons: Anticoagulation Allergies environmental allergies Adverse Reaction (Intermediate, Verified 04/14/23 11:17) Itchy Eyes Medication List - Last Reconciled 04/14/23 by Funmilayo Putnam RN ascorbate calcium (vitamin C) 500 mg PO DAILY atenolol 25 mg PO DAILY atorvastatin 10 mg PO BEDTIME blood sugar diagnostic (FreeStyle Lite Strips) USE 1 STRIP TO CHECK BLOOD GLUCOSE ONCE DAILY clopidogrel 75 mg PO DAILY 90 days flaxseed oil 1,000 mg PO DAILY gabapentin 100 mg PO TID glimepiride 2 mg PO BID 90 days glucosamine-chondroitin 250-200 mg (Osteo Bi-Flex) 2 tabs PO TID lisinopril 2.5 mg PO DAILY metformin 1,000 mg PO BID multivitamin (Daily Multi-Vitamin tablet) 1 tab PO DAILY omega-3 fatty acids (Fish Oil Concentrate) 1,000 mg PO DAILY [osteo bioflex PO] pioglitazone 30 mg PO DAILY 30 days tamsulosin 0.4 mg PO DAILY warfarin See Protocol 4 mg orally 1-2 per day; Nursing Note INR: 2.9- in therapeutic range Medications and supplements reviewed- no changes No changes in health, diet, medications, or supplements, Denies any signs and symptoms of bleeding or bruising or clotting. Bleeding, bruising, clotting discussed Nutritional guidance given Dose: 4mg x 2, 6mg x 5 F/U INR: 4 weeks Patient verbalizes understanding of instructions given Anti-Coag Initial Assessment Social Hx Patient Tobacco Use Status: Never used Tobacco alcohol intake: never Coding Level of Care Code Est Patient Level 1 Diagnoses Current use of anticoagulant therapy Z79.01 Results AMB INR Fingerstick AMB INR Fingerstick 2.9 Last Edit by Funmilayo Putnam RN on 04/14/23 11:23 Assessment & Plan Assessment & Plan (1) Current use of anticoagulant therapy: Code(s): Z79.01 - half-way (current) use of anticoagulants Category: Medical
[2023-04-14 11:27] LABS: Prothrombin Time Whole Bld POC 35.2 sec (11.1-13.5); ~PT, ~INR - Anti Coag Clinic 2.9 (0.9-1.1)
== END 2023-04-14 11:29 | disposition home or self-care (01) ==
LOC: HO.ACS 11:10
PROVIDERS: PCP Internal Medicine; Visit Provider Internal Medicine
DX: Z79.01 Long term (current) use of anticoagulants (principal)

== ENCOUNTER → 2023-04-14 11:10 | Outpatient (BNVA) | payer MEDICARE, SELFPAY | PROVIDERS: PCP Internal Medicine; Visit Provider Internal Medicine | DX: I48.0 Paroxysmal atrial fibrillation (principal); Z79.01 Long term (current) use of anticoagulants; Z51.81 Encounter for therapeutic drug level monitoring | CPT/HCPCS: 85610; 99211 ==

== ENCOUNTER 2023-05-10 10:53 | Outpatient (AMB) | payer MEDICARE, SELFPAY ==
[2023-05-10 10:59] VITALS: BP 176/70; PULSE 55; O2SAT 98; BMI 30.4
--- NOTE | 2023-05-10 10:59 | A.OFFPC_ITS ---
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 Assistant: Not Required per policy Accompanied by: Self / Same As Patient Allergies environmental allergies Adverse Reaction (Intermediate, Verified 05/10/23 11:00) Itchy Eyes Medication List - Last Reconciled 05/11/23 by Nicolás Torres MD ascorbate calcium (vitamin C) 500 mg PO DAILY atenolol 25 mg PO DAILY atorvastatin 10 mg PO BEDTIME blood sugar diagnostic (FreeStyle Lite Strips) USE 1 STRIP TO CHECK BLOOD GLUCOSE ONCE DAILY clopidogrel 75 mg PO DAILY 90 days flaxseed oil 1,000 mg PO DAILY gabapentin 100 mg PO TID glimepiride 2 mg PO BID 90 days glucosamine-chondroitin 250-200 mg (Osteo Bi-Flex) 2 tabs PO TID lisinopril 10 mg PO DAILY lisinopril 2.5 mg PO DAILY metformin 1,000 mg PO BID multivitamin (Daily Multi-Vitamin tablet) 1 tab PO DAILY omega-3 fatty acids (Fish Oil Concentrate) 1,000 mg PO DAILY [osteo bioflex PO] pioglitazone 30 mg PO DAILY 30 days tamsulosin 0.4 mg PO DAILY warfarin See Protocol 4 mg orally 1-2 per day; Tobacco use date assessed: 08/17/22 Fall risk assessment: 1 Fall in past year Last assessed Fall Risk: 05/10/23 Dental Screening Dental Screen Date: 05/10/23 Did you have a dental visit in the last 12 months?: No Did you have a dental problem in the last 6 months where you did not have access to dental care?: No Was dental information given to patient?: Patient has dentist HPI 4mth f/u HPI Details DM HTN and hyperlipidemia; BP has been high REPLACED BY [facility] Medical History Diabetes mellitus with coincident hypertension Diabetes mellitus H/O coronary angiogram Diabetes Surgical History History of appendectomy History of cholecystectomy History of tonsillectomy History of removal of calculus of renal pelvis through percutaneous nephrostomy Toe amputee Family History Father CAD (coronary artery disease) Past heart attack Mother Diabetes Brother No problems noted. Brother Testicular cancer Brother S/P triple vessel bypass Daughter No problems noted. Daughter No problems noted. Maternal Grandmother Hypertension Social History Housing: House Alcohol intake: never Patient Tobacco Use Status: Never used Tobacco e-Cigarette/Vaping Use: Never Used Second Hand Smoke Exposure: No service: No Current occupational status: retired Cognitive needs: No Hearing needs: No Vision needs: No Questionnaire PHQ-9 Over the last 2 weeks, how often have you been bothered by any of the following problems? 1. Little interest or pleasure in doing things: not at all 2. Feeling down, depressed, or hopeless: not at all 3. Trouble falling or staying asleep, or sleeping too much: not at all 4. Feeling tired or having little energy: not at all 5. Poor appetite or overeating: not at all 6. Feeling bad about yourself - or that you are a failure or have let yourself or your family down: not at all 7. Trouble concentrating on things, such as reading the newspaper or watching television: not at all 8. Moving or speaking so slowly that other people could have noticed. Or the opposite - being so fidgety or restless that you have been moving around a lot more than usual: not at all 9. Thoughts that you would be better off or of hurting yourself in some way: not at all Total score: 0 Depression Screening Interpretation: Negative Depression Screening Done: Yes 55859 - PHQ-9 Billing: Yes Source: Developed by Drs. Juanito Franklin, Yojana Blood, Monty Rehman and colleagues, with an educational saida from [employer]. Thrive Questionnaire Date Thrive assessed: 01/04/23 AUDIT C Alcohol Use Questionnaire (AUDIT-C) 1. How often do you have a drink containing alcohol?: Never 3. How often do you have six or more drinks on one occasion?: Never Total Score: 0 Score Reviewed/Action Taken: Yes KALE-7 AMB Questionnaire KALE-7 Date KALE - 7 assessed: 01/04/23 Source: Developed by Drs. Juanito Franklin, Yojana Blood, Monty Rehman and colleagues, with an educational saida from [employer]. Review of Systems Const Denies chills, Denies headache(s) and Denies weight loss ENT Denies headache(s) Card Denies chest pain, Denies syncope, Denies irregular heart rhythm and Denies dyspnea Resp Denies chest congestion, Denies cough and Denies dyspnea GI Denies abdominal pain, Denies change in stool character, Denies nausea and Denies vomiting Musc Denies deformity and Denies joint swelling Neuro Denies syncope and Denies headache(s) Physical exam (Primary Care) Vital Signs: Last Vital Signs Pulse 55 05/10/23 10:59 BP 176/70 H 05/10/23 10:59 Pulse Ox 98 05/10/23 10:59 Oxygen Delivery Method Room Air 05/10/23 10:59 BMI result Body Mass Index 30.4 Tobacco/Smoking Status: Tobacco use Status Tobacco use date assessed 08/17/22 05/10/23 11:01 Patient Tobacco Use Status Never used Tobacco 05/10/23 11:01 e-Cigarette/Vaping Use Never Used 05/10/23 11:01 PHQ-9: PHQ-9 Score PHQ-9: Total score 0 05/10/23 11:01 Depression Screening Interpretation: Negative Thrive Assessment: Date of Thrive Assessment Date Thrive assessed 01/04/23 05/10/23 11:01 Const General: cooperative, comfortable, no acute distress and alert Neck Neck: Yes no lymphadenopathy Thyroid: Thyroid normal Resp Effort & Inspection: normal respiratory effort Auscultation: clear to auscultation bilaterally Percussion: percussion normal Cardio Jugular venous distension: no JVD Palpation: normal PMI Rate: regular rate Rhythm: regular rhythm Heart sounds: S1 normal heart sound present and S2 normal heart sound present GI Inspection: Yes normal to inspection Palpation (GI): No hepatosplenomegaly present Skin General skin exam: no rashes or lesions noted Extrem General: Yes no clubbing, cyanosis or edema Assessment and Plan Assessment & Plan (1) Diabetes mellitus with coincident hypertension: Code(s): E11.9 - Type 2 diabetes mellitus without complications; I10 - Essential (primary) hypertension (2) Hyperlipidemia: Code(s): E78.5 - Hyperlipidemia, unspecified Plan: stable; same rx (3) HTN (hypertension): Code(s): I10 - Essential (primary) hypertension Plan: increase lisinopril to 10mg qd Orders: Orders AMB Hemoglobin A1c 05/10/23 E11.9 - Type 2 diabetes mellitus without complications, I10 - Essential (primary) hypertension Lipid Panel Today E78.5 - Hyperlipidemia, unspecified Glucose Fasting Today R73.9 - Hyperglycemia, unspecified Hemoglobin A1c Today R73.9 - Hyperglycemia, unspecified Medications: New lisinopril 10 mg PO DAILY 90 tabs 0RF Coding Level of Care Code Est Pt Level 4 (92961) Diagnoses Diabetes mellitus with coincident hypertension E11.9; I10 Hyperlipidemia E78.5 HTN (hypertension) I10
== END 2023-05-10 11:20 | disposition home or self-care (01) ==
PROVIDERS: PCP Internal Medicine; Visit Provider Internal Medicine
DX: E11.65 Type 2 diabetes mellitus with hyperglycemia (principal); I10 Essential (primary) hypertension; E78.5 Hyperlipidemia, unspecified
CPT/HCPCS: 99214

== ENCOUNTER 2023-05-12 11:15 | Outpatient (AMB) | payer MEDICARE, SELFPAY ==
--- NOTE | 2023-05-12 11:22 | MHC.OFFVISCO ---
Intake Intake Visit Reasons: Anticoagulation Allergies environmental allergies Adverse Reaction (Intermediate, Verified 05/12/23 11:16) Itchy Eyes Medication List - Last Reconciled 05/12/23 by Funmilayo Putnam, RN ascorbate calcium (vitamin C) 500 mg PO DAILY atenolol 25 mg PO DAILY atorvastatin 10 mg PO BEDTIME blood sugar diagnostic (FreeStyle Lite Strips) USE 1 STRIP TO CHECK BLOOD GLUCOSE ONCE DAILY clopidogrel 75 mg PO DAILY 90 days flaxseed oil 1,000 mg PO DAILY gabapentin 100 mg PO TID glimepiride 2 mg PO BID 90 days glucosamine-chondroitin 250-200 mg (Osteo Bi-Flex) 2 tabs PO TID lisinopril 10 mg PO DAILY lisinopril 2.5 mg PO DAILY metformin 1,000 mg PO BID multivitamin (Daily Multi-Vitamin tablet) 1 tab PO DAILY omega-3 fatty acids (Fish Oil Concentrate) 1,000 mg PO DAILY [osteo bioflex PO] pioglitazone 30 mg PO DAILY 30 days tamsulosin 0.4 mg PO DAILY warfarin See Protocol 4 mg orally 1-2 per day; Nursing Note INR: 2.9- in therapeutic range of 2-3 Medications and supplements reviewed- lisinopril increased to 10mg daily- no interaction with warfarin per micromedex No changes in health, diet, medications, or supplements, Denies any signs and symptoms of bleeding or bruising or clotting. Bleeding, bruising, clotting discussed Nutritional guidance given Dose: 4mg x 2, 6mg x 5 F/U INR: 4 weeks Patient verbalizes understanding of instructions given Anti-Coag Initial Assessment Social Hx Patient Tobacco Use Status: Never used Tobacco alcohol intake: never Coding Level of Care Code Est Patient Level 1 Diagnoses Current use of anticoagulant therapy Z79.01 Assessment & Plan Assessment & Plan (1) Current use of anticoagulant therapy: Code(s): Z79.01 - FPC (current) use of anticoagulants Category: Medical
[2023-05-12 11:23] LABS: Prothrombin Time Whole Bld POC 34.6 sec (11.1-13.5); ~PT, ~INR - Anti Coag Clinic 2.9 (0.9-1.1)
== END 2023-05-12 11:28 | disposition home or self-care (01) ==
LOC: HO.ACS 11:15
PROVIDERS: PCP Internal Medicine; Visit Provider Internal Medicine
DX: Z79.01 Long term (current) use of anticoagulants (principal)

== ENCOUNTER → 2023-05-12 11:15 | Outpatient (BNVA) | payer MEDICARE, SELFPAY | PROVIDERS: PCP Internal Medicine; Visit Provider Internal Medicine | DX: I48.0 Paroxysmal atrial fibrillation (principal); Z79.01 Long term (current) use of anticoagulants; Z51.81 Encounter for therapeutic drug level monitoring | CPT/HCPCS: 85610; 99211 ==

== ENCOUNTER 2023-06-09 11:10 | Outpatient (AMB) | payer MEDICARE, SELFPAY ==
[2023-06-09 11:38] LABS: Prothrombin Time Whole Bld POC 29.9 sec (11.1-13.5); ~PT, ~INR - Anti Coag Clinic 2.5 (0.9-1.1)
--- NOTE | 2023-06-09 11:42 | MHC.OFFVISCO ---
Intake Intake Visit Reasons: Anticoagulation Allergies environmental allergies Adverse Reaction (Intermediate, Verified 06/09/23 11:32) Itchy Eyes Medication List - Last Reconciled 06/09/23 by Noreen Tabor, RN ascorbate calcium (vitamin C) 500 mg PO DAILY atenolol 25 mg PO DAILY atorvastatin 10 mg PO BEDTIME blood sugar diagnostic (FreeStyle Lite Strips) USE 1 STRIP TO CHECK BLOOD GLUCOSE ONCE DAILY clopidogrel 75 mg PO DAILY 90 days flaxseed oil 1,000 mg PO DAILY gabapentin 100 mg PO TID glimepiride 2 mg PO BID 90 days glucosamine-chondroitin 250-200 mg (Osteo Bi-Flex) 2 tabs PO TID lisinopril 10 mg PO DAILY lisinopril 2.5 mg PO DAILY metformin 1,000 mg PO BID multivitamin (Daily Multi-Vitamin tablet) 1 tab PO DAILY omega-3 fatty acids (Fish Oil Concentrate) 1,000 mg PO DAILY [osteo bioflex PO] pioglitazone 30 mg PO DAILY 30 days tamsulosin 0.4 mg PO DAILY warfarin See Protocol 4 mg orally 1-2 per day; Nursing Note INR: 2.5 in therapeutic range Medications and supplements reviewed No changes in health, diet, medications, or supplements, Denies any signs and symptoms of bleeding or bruising or clotting. 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
== END 2023-06-09 11:46 | disposition home or self-care (01) ==
LOC: HO.ACS 11:10
PROVIDERS: PCP Internal Medicine; Visit Provider Internal Medicine
DX: Z79.01 Long term (current) use of anticoagulants (principal)

== ENCOUNTER → 2023-06-09 11:10 | Outpatient (BNVA) | payer MEDICARE, SELFPAY | PROVIDERS: PCP Internal Medicine; Visit Provider Internal Medicine | DX: I48.0 Paroxysmal atrial fibrillation (principal); Z79.01 Long term (current) use of anticoagulants; Z51.81 Encounter for therapeutic drug level monitoring | CPT/HCPCS: 85610; 99211 ==

== ENCOUNTER 2023-07-14 11:05 | Outpatient (AMB) | payer MEDICARE, SELFPAY ==
[2023-07-14 11:32] LABS: Prothrombin Time Whole Bld POC 37.8 sec (11.1-13.5); ~PT, ~INR - Anti Coag Clinic 3.2 (0.9-1.1)
--- NOTE | 2023-07-14 11:36 | MHC.OFFVISCO ---
Intake Intake Visit Reasons: Anticoagulation Allergies environmental allergies Adverse Reaction (Intermediate, Verified 07/14/23 11:26) Itchy Eyes Medication List - Last Reconciled 07/14/23 by Bethany Kapoor RN ascorbate calcium (vitamin C) 500 mg PO DAILY atenolol 25 mg PO DAILY atorvastatin 10 mg PO BEDTIME blood sugar diagnostic (FreeStyle Lite Strips) USE 1 STRIP TO CHECK BLOOD GLUCOSE ONCE DAILY clopidogrel 75 mg PO DAILY 90 days flaxseed oil 1,000 mg PO DAILY gabapentin 100 mg PO TID glimepiride 2 mg PO BID 90 days glucosamine-chondroitin 250-200 mg (Osteo Bi-Flex) 2 tabs PO TID lisinopril 10 mg PO DAILY lisinopril 2.5 mg PO DAILY metformin 1,000 mg PO BID multivitamin (Daily Multi-Vitamin tablet) 1 tab PO DAILY omega-3 fatty acids (Fish Oil Concentrate) 1,000 mg PO DAILY [osteo bioflex PO] pioglitazone 30 mg PO DAILY 30 days tamsulosin 0.4 mg PO DAILY warfarin See Protocol 4 mg orally 1-2 per day; Nursing Note Amb to ACS feeling well Medications and supplements reviewed No changes in health, diet, medications, or supplements Denies any unusual signs and symptoms of bruising, bleeding Denies any new Chest pain, SOB, or clotting INR: 3.2 above therapeutic range, sts he will do greens love cabbage Nutritional guidance given: have greens today then balance greens and reds in diet Dose: continue usual dosing;4mg x 2 days and 6mg x 5 days F/U INR: 4 weeks Patient verbalizes understanding of instructions given with accurate read back/ teach back of dosing Anti-Coag Initial Assessment Social Hx Patient Tobacco Use Status: Never used Tobacco alcohol intake: never Questionnaires HAS-BLED Does the patient had uncontrolled Hypertension?: Yes Does the patient have renal disease?: Yes Does the patient have liver disease?: No Does the patient have a history of stroke?: No Has the patient had major bleeding or predisposition to bleeding?: No Does the patient have labile INRs?: No Is the patient over 65 years of age?: Yes Is the patient on medications that gives them a predisposition to bleeding?: Yes Does the patient use alcohol?: No HAS-BLED Score: 4 CHADSVASC Age: 75 or over Gender: Male Does the patient have a history of CHF?: No Does the patient have a history of Hypertension?: Yes Does the patient have a history of Stroke/TIA/Thromboembolism?: No Does the patient have a history of Vascular Disease (prior [place], PAD or aortic plaque)?: Yes Does the patient have a history of Diabetes?: Yes CHADS VACS Score: 5 Christopher Prediction Score Rsk VTE Active Cancer: No Previous VTE, excluding superficial vein thrombosis: No Reduced mobility: No Already known Thrombophilic Condition: Yes With-in last month Trauma and/or Surgery: No Elderly 70 year or older: Yes Heart and/or Respiratory Failure: No Acute Myocardial infarction and/or Ischemic Stroke: No Acute Infection and/or Rheumatologic Disorder: No Obesity (BMI 30 or greater): No Ongoing Hormonal Treatment: No Score: 4 Christopher Score less than 4; Low Risk of VTE Christopher Score 4 or greater; High Risk of VTE Coding Level of Care Code Est Patient Level 1 Diagnoses Current use of anticoagulant therapy Z79.01 Time Spent (min) 15 Assessment & Plan Assessment & Plan (1) Current use of anticoagulant therapy: Code(s): 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
== END 2023-07-14 11:45 | disposition home or self-care (01) ==
LOC: HO.ACS 11:05
PROVIDERS: PCP Internal Medicine; Visit Provider Internal Medicine
DX: Z79.01 Long term (current) use of anticoagulants (principal)

== ENCOUNTER → 2023-07-14 11:05 | Outpatient (BNVA) | payer MEDICARE, SELFPAY | PROVIDERS: PCP Internal Medicine; Visit Provider Internal Medicine | DX: I48.0 Paroxysmal atrial fibrillation (principal); Z79.01 Long term (current) use of anticoagulants; Z51.81 Encounter for therapeutic drug level monitoring | CPT/HCPCS: 85610; 99211 ==

== ENCOUNTER 2023-07-19 08:07 | Outpatient (REF) | payer MEDICARE, SELFPAY ==
[2023-07-19 11:41] LABS: Estimated Average Glucose 154 mg/dL
[2023-07-19 11:51] LABS: Cholesterol 153 mg/dL (<200); Glucose Fasting 197 mg/dL (60-99); HDL Cholesterol 31 mg/dL (>40); LDL Cholesterol Calculated 89 mg/dL (<100); Triglycerides 167 mg/dL (<150)
[2023-07-19 12:05] LABS: Prostate Specific Antigen 3.94 ng/mL (<0.05-4.0)
== END 2023-07-19 08:08 | disposition home or self-care (01) ==
LOC: HO.HMGCLDS 08:07
PROVIDERS: PCP Internal Medicine; Visit Provider Urology
DX: Z12.5 Encounter for screening for malignant neoplasm of prostate (principal); R97.20 Elevated prostate specific antigen [PSA]; R73.9 Hyperglycemia, unspecified; E78.5 Hyperlipidemia, unspecified
CPT/HCPCS: 36415; 80061; 82947; 83036; 84153

== ENCOUNTER 2023-08-18 11:11 | Outpatient (AMB) | payer MEDICARE, SELFPAY ==
--- NOTE | 2023-08-18 11:27 | MHC.OFFVISCO ---
Intake Intake Visit Reasons: Anticoagulation Allergies environmental allergies Adverse Reaction (Intermediate, Verified 08/18/23 11:23) Itchy Eyes Medication List - Last Reconciled 08/18/23 by Funmilayo Putnam RN ascorbate calcium (vitamin C) 500 mg PO DAILY atenolol 25 mg PO DAILY atorvastatin 10 mg PO BEDTIME blood sugar diagnostic (FreeStyle Lite Strips) USE 1 STRIP TO CHECK BLOOD GLUCOSE ONCE DAILY clopidogrel 75 mg PO DAILY 90 days flaxseed oil 1,000 mg PO DAILY gabapentin 100 mg PO TID glimepiride 2 mg PO BID 90 days glucosamine-chondroitin 250-200 mg (Osteo Bi-Flex) 2 tabs PO TID lisinopril 2.5 mg PO DAILY lisinopril 10 mg PO DAILY metformin 1,000 mg PO BID multivitamin (Daily Multi-Vitamin tablet) 1 tab PO DAILY omega-3 fatty acids (Fish Oil Concentrate) 1,000 mg PO DAILY [osteo bioflex PO] pioglitazone 30 mg PO DAILY 30 days tamsulosin 0.4 mg PO DAILY warfarin See Protocol 4 mg orally 1-2 per day; Nursing Note INR 1.7-? out of therapeutic range of 2-3 pt denies missed dose Medications and supplements reviewed Patient status: pt with c.o nose bleed approx 2 weeks ago, none since- instructed to let acs know right eye sclera reddened- has injections to eye every four months Medications or supplements: no changes Diet: appetite is good Denies any signs and symptoms of bleeding or clotting or unusual bruising Bleeding, bruising, clotting discussed Nutritional guidance given: no greens for 2 days, eat reds to raise Dose: already took warfarin today, boost tomm to 8mg then 6mg x 5, 4mg x 2 F/U INR Date : 2 weeks?? Patient verbalizing understanding of instructions given. 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
[2023-08-18 11:29] LABS: Prothrombin Time Whole Bld POC 20.7 sec (11.1-13.5); ~PT, ~INR - Anti Coag Clinic 1.7 (0.9-1.1)
== END 2023-08-18 12:03 | disposition home or self-care (01) ==
LOC: HO.ACS 11:11
PROVIDERS: PCP Internal Medicine; Visit Provider Internal Medicine
DX: Z79.01 Long term (current) use of anticoagulants (principal)

== ENCOUNTER → 2023-08-18 11:11 | Outpatient (BNVA) | payer MEDICARE, SELFPAY | PROVIDERS: PCP Internal Medicine; Visit Provider Internal Medicine | DX: I48.0 Paroxysmal atrial fibrillation (principal); Z79.01 Long term (current) use of anticoagulants; Z51.81 Encounter for therapeutic drug level monitoring | CPT/HCPCS: 85610; 99211 ==

== ENCOUNTER 2023-09-01 11:14 | Outpatient (AMB) | payer MEDICARE, SELFPAY ==
--- NOTE | 2023-09-01 11:18 | MHC.OFFVISCO ---
Intake Intake Visit Reasons: Anticoagulation Allergies environmental allergies Adverse Reaction (Intermediate, Verified 09/01/23 11:18) Itchy Eyes Medication List - Last Reconciled 09/01/23 by Funmilayo Putnam RN ascorbate calcium (vitamin C) 500 mg PO DAILY atenolol 25 mg PO DAILY atorvastatin 10 mg PO BEDTIME blood sugar diagnostic (FreeStyle Lite Strips) USE 1 STRIP TO CHECK BLOOD GLUCOSE ONCE DAILY clopidogrel 75 mg PO DAILY 90 days flaxseed oil 1,000 mg PO DAILY gabapentin 100 mg PO TID glimepiride 2 mg PO BID 90 days glucosamine-chondroitin 250-200 mg (Osteo Bi-Flex) 2 tabs PO TID lisinopril 2.5 mg PO DAILY lisinopril 10 mg PO DAILY metformin 1,000 mg PO BID multivitamin (Daily Multi-Vitamin tablet) 1 tab PO DAILY omega-3 fatty acids (Fish Oil Concentrate) 1,000 mg PO DAILY [osteo bioflex PO] pioglitazone 30 mg PO DAILY 30 days tamsulosin 0.4 mg PO DAILY warfarin See Protocol 4 mg orally 1-2 per day; Nursing Note INR: 2.4- in therapeutic range of 2-3 Medications and supplements reviewed No changes in health, diet, medications, or supplements, Denies any signs and symptoms of bleeding or bruising or clotting. 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
[2023-09-01 11:32] LABS: Prothrombin Time Whole Bld POC 28.5 sec (11.1-13.5); ~PT, ~INR - Anti Coag Clinic 2.4 (0.9-1.1)
== END 2023-09-01 11:27 | disposition home or self-care (01) ==
LOC: HO.ACS 11:14
PROVIDERS: PCP Internal Medicine; Visit Provider Internal Medicine
DX: Z79.01 Long term (current) use of anticoagulants (principal)

== ENCOUNTER → 2023-09-01 11:14 | Outpatient (BNVA) | payer MEDICARE, SELFPAY | PROVIDERS: PCP Internal Medicine; Visit Provider Internal Medicine | DX: I48.0 Paroxysmal atrial fibrillation (principal); Z79.01 Long term (current) use of anticoagulants; Z51.81 Encounter for therapeutic drug level monitoring | CPT/HCPCS: 85610; 99211 ==

== ENCOUNTER 2023-09-13 11:16 | Outpatient (AMB) | payer MEDICARE, SELFPAY ==
[2023-09-13 11:20] VITALS: BP 142/62; PULSE 50; O2SAT 97; BMI 30.7
--- NOTE | 2023-09-13 11:20 | A.OFFPC_ITS ---
Vital Signs 09/13/23 11:20 Height 5 ft 8 in Weight 202 lb BMI 30.7 BP 142/62 H Blood Pressure Location Lt brachial Position Sitting Pulse 50 Pulse Source Pulse Oximeter Pulse Oximetry (%) 97 Oxygen Delivery Method Room Air Intake Visit Reasons: 4 month f/u Clinic Assistant Required: No General Labor: Not Required per policy Accompanied by: Self / Same As Patient Allergies environmental allergies Adverse Reaction (Intermediate, Verified 09/13/23 11:21) Itchy Eyes Medication List - Last Reconciled 09/13/23 by Nicolás Torres MD ascorbate calcium (vitamin C) 500 mg PO DAILY atenolol 25 mg PO DAILY atorvastatin 10 mg PO BEDTIME blood sugar diagnostic (FreeStyle Lite Strips) USE 1 STRIP TO CHECK BLOOD GLUCOSE ONCE DAILY clopidogrel 75 mg PO DAILY 90 days finasteride 5 mg PO DAILY flaxseed oil 1,000 mg PO DAILY gabapentin 100 mg PO TID glimepiride 2 mg PO BID 90 days glucosamine-chondroitin 250-200 mg (Osteo Bi-Flex) 2 tabs PO TID lisinopril 2.5 mg PO DAILY lisinopril 10 mg PO DAILY metformin 1,000 mg PO BID multivitamin (Daily Multi-Vitamin tablet) 1 tab PO DAILY omega-3 fatty acids (Fish Oil Concentrate) 1,000 mg PO DAILY [osteo bioflex PO] pioglitazone 30 mg PO DAILY 30 days tamsulosin 0.4 mg PO DAILY warfarin See Protocol 4 mg orally 1-2 per day; Tobacco use date assessed: 09/13/23 Fall risk assessment: No Falls in past year Last assessed Fall Risk: 09/13/23 Dental Screening Dental Screen Date: 09/13/23 Did you have a dental visit in the last 12 months?: No Did you have a dental problem in the last 6 months where you did not have access to dental care?: No Was dental information given to patient?: Patient has dentist HPI 4 month f/u HPI Details HTN hyperlip and DM; doing well on rx; compliant [facility] Medical History Diabetes mellitus with coincident hypertension Diabetes mellitus H/O coronary angiogram Diabetes Surgical History History of appendectomy History of cholecystectomy History of tonsillectomy History of removal of calculus of renal pelvis through percutaneous nephrostomy Toe amputee Family History Father CAD (coronary artery disease) Past heart attack Mother Diabetes Brother No problems noted. Brother Testicular cancer Brother S/P triple vessel bypass Daughter No problems noted. Daughter No problems noted. Maternal Grandmother Hypertension Social History Housing: House Alcohol intake: never Patient Tobacco Use Status: Never used Tobacco e-Cigarette/Vaping Use: Never Used Second Hand Smoke Exposure: No service: No Current occupational status: retired Cognitive needs: No Hearing needs: No Vision needs: No Questionnaire PHQ-9 Over the last 2 weeks, how often have you been bothered by any of the following problems? 1. Little interest or pleasure in doing things: not at all 2. Feeling down, depressed, or hopeless: not at all 3. Trouble falling or staying asleep, or sleeping too much: not at all 4. Feeling tired or having little energy: not at all 5. Poor appetite or overeating: not at all 6. Feeling bad about yourself - or that you are a failure or have let yourself or your family down: not at all 7. Trouble concentrating on things, such as reading the newspaper or watching television: not at all 8. Moving or speaking so slowly that other people could have noticed. Or the opposite - being so fidgety or restless that you have been moving around a lot more than usual: not at all 9. Thoughts that you would be better off or of hurting yourself in some way: not at all Total score: 0 Depression Screening Interpretation: Negative Depression Screening Done: Yes 94614 - PHQ-9 Billing: Yes Source: Developed by Drs. Juanito Franklin, Yojana Blood, Monty Rehman and colleagues, with an educational saida from [employer]. Thrive Questionnaire Date Thrive assessed: 09/13/23 I am a: Patient What is your living situation today?: I have a steady place to live Within the past 12 months, did the food you bought not last and you didn't have the money to get more?: Never true Within the past 12 months, did you worry whether your food would run out before you got money to buy more?: Never true Do you have trouble paying for medicines?: No Do you have trouble getting transportation to medical appointments?: No Do you have trouble paying your heating and electricity bill?: No Do you have trouble taking care of your child, family member or friend?: No Do you have trouble with day-to-day activities such as bathing, preparing meals, shopping, managing finances, etc.?: No Are you currently unemployed and looking for a job?: No Are you interested in more education?: No Please select the resources that you would like help with: None THRIVE Score: 0 AUDIT C Alcohol Use Questionnaire (AUDIT-C) 1. How often do you have a drink containing alcohol?: Never 3. How often do you have six or more drinks on one occasion?: Never Total Score: 0 Score Reviewed/Action Taken: Yes KALE-7 AMB Questionnaire KALE-7 Date KALE - 7 assessed: 09/13/23 Feeling nervous, anxious, or on edge: 0 = Not at all Not being able to stop or control worryin = Not at all Worrying too much about different things: 0 = Not at all Trouble relaxin = Not at all Being so restless that it is hard to sit still: 0 = Not at all Becoming easily annoyed or irritable: 0 = Not at all Feeling afraid as if something awful might happen: 0 = Not at all Total KALE-7 score (0-4 normal; 5-9 mild; 10-14 moderate; 15-21 severe): 0 Source: Developed by Drs. Juanito Franklin, Yojana Blood, Monty Rehman and colleagues, with an educational saida from [employer]. KALE-7 Assessment Billing KALE-7 Assessment Tool: KALE-7 Assessment 97097 Review of Systems Const Denies chills, Denies headache(s) and Denies weight loss ENT Denies headache(s) Card Denies chest pain, Denies syncope, Denies irregular heart rhythm and Denies dyspnea Resp Denies chest congestion, Denies cough and Denies dyspnea GI Denies abdominal pain, Denies change in stool character, Denies nausea and Denies vomiting Musc Denies deformity and Denies joint swelling Neuro Denies syncope and Denies headache(s) Physical exam (Primary Care) Vital Signs: Last Vital Signs Pulse 50 09/13/23 11:20 BP 142/62 H 09/13/23 11:20 Pulse Ox 97 09/13/23 11:20 Oxygen Delivery Method Room Air 09/13/23 11:20 BMI result Body Mass Index 30.7 Tobacco/Smoking Status: Tobacco use Status Tobacco use date assessed 09/13/23 09/13/23 11:21 Patient Tobacco Use Status Never used Tobacco 09/13/23 11:21 e-Cigarette/Vaping Use Never Used 09/13/23 11:21 PHQ-9: PHQ-9 Score PHQ-9: Total score 0 09/13/23 11:21 Depression Screening Interpretation: Negative Thrive Assessment: Date of Thrive Assessment Date Thrive assessed 09/13/23 09/13/23 11:21 Const General: cooperative, comfortable, no acute distress and alert Neck Neck: Yes no lymphadenopathy Thyroid: Thyroid normal Resp Effort & Inspection: normal respiratory effort Auscultation: clear to auscultation bilaterally Percussion: percussion normal Cardio Jugular venous distension: no JVD Palpation: normal PMI Rate: regular rate Rhythm: regular rhythm Heart sounds: S1 normal heart sound present and S2 normal heart sound present GI Inspection: Yes normal to inspection Palpation (GI): No hepatosplenomegaly present Skin General skin exam: no rashes or lesions noted Extrem General: Yes no clubbing, cyanosis or edema Assessment and Plan Assessment & Plan (1) Hyperlipidemia: Code(s): E78.5 - Hyperlipidemia, unspecified Plan: stable; same rx (2) Diabetes mellitus with coincident hypertension: Code(s): E11.9 - Type 2 diabetes mellitus without complications; I10 - Essential (primary) hypertension Plan: do labs; stable (3) HTN (hypertension): Code(s): I10 - Essential (primary) hypertension Plan: stable; same rx Orders: Orders Lipid Panel Today E78.5 - Hyperlipidemia, unspecified Comprehensive [place]. Panel Fast Today N28.9 - Disorder of kidney and ureter, unspecified Hemoglobin A1c Today R73.9 - Hyperglycemia, unspecified Coding Level of Care Code Est Pt Level 4 (32029) Diagnoses Hyperlipidemia E78.5 Diabetes mellitus with coincident hypertension E11.9; I10 HTN (hypertension) I10 Additional Codes KALE-7 Assessment Billing - KALE-7 Assessment Tool: KALE-7 Assessment 58898 ([id number])
== END 2023-09-13 11:37 | disposition home or self-care (01) ==
PROVIDERS: PCP Internal Medicine; Visit Provider Internal Medicine
DX: E78.5 Hyperlipidemia, unspecified (principal); E11.69 Type 2 diabetes mellitus with other specified complication; I10 Essential (primary) hypertension
CPT/HCPCS: 99214

== ENCOUNTER 2023-09-22 11:12 | Outpatient (AMB) | payer MEDICARE, SELFPAY ==
[2023-09-22 11:19] LABS: Prothrombin Time Whole Bld POC 31.5 sec (11.1-13.5); ~PT, ~INR - Anti Coag Clinic 2.6 (0.9-1.1)
--- NOTE | 2023-09-22 11:27 | MHC.OFFVISCO ---
Intake Intake Visit Reasons: Anticoagulation Allergies environmental allergies Adverse Reaction (Intermediate, Verified 09/22/23 11:14) Itchy Eyes Medication List - Last Reconciled 09/22/23 by Bethany Richardson, RN ascorbate calcium (vitamin C) 500 mg PO DAILY atenolol 25 mg PO DAILY atorvastatin 10 mg PO BEDTIME blood sugar diagnostic (FreeStyle Lite Strips) USE 1 STRIP TO CHECK BLOOD GLUCOSE ONCE DAILY clopidogrel 75 mg PO DAILY 90 days finasteride 5 mg PO DAILY flaxseed oil 1,000 mg PO DAILY gabapentin 100 mg PO TID glimepiride 2 mg PO BID 90 days glucosamine-chondroitin 250-200 mg (Osteo Bi-Flex) 2 tabs PO TID lisinopril 2.5 mg PO DAILY lisinopril 10 mg PO DAILY metformin 1,000 mg PO BID multivitamin (Daily Multi-Vitamin tablet) 1 tab PO DAILY omega-3 fatty acids (Fish Oil Concentrate) 1,000 mg PO DAILY [osteo bioflex PO] pioglitazone 30 mg PO DAILY 30 days tamsulosin 0.4 mg PO DAILY warfarin See Protocol 4 mg orally 1-2 per day; Nursing Note INR: 2.6 in therapeutic range of 2-3 Medications and supplements reviewed: no changes. No changes in health, diet, medications, or supplements. Denies any signs and symptoms of bleeding or bruising or clotting. Bleeding, bruising, clotting discussed. Nutritional guidance given. Dose: cont usual dose of 4mg X2 and 6mg X5 F/U INR: 1 month Patient verbalizes understanding of instructions given Anti-Coag Initial Assessment Social Hx Patient Tobacco Use Status: Never used Tobacco alcohol intake: never Coding Level of Care Code Est Patient Level 1 Diagnoses Current use of anticoagulant therapy Z79.01 Assessment & Plan Assessment & Plan (1) Current use of anticoagulant therapy: Code(s): Z79.01 - half-way (current) use of anticoagulants Category: Medical
== END 2023-09-22 11:55 | disposition home or self-care (01) ==
LOC: HO.ACS 11:12
PROVIDERS: PCP Internal Medicine; Visit Provider Internal Medicine
DX: Z79.01 Long term (current) use of anticoagulants (principal)

== ENCOUNTER → 2023-09-22 11:12 | Outpatient (BNVA) | payer MEDICARE, SELFPAY | PROVIDERS: PCP Internal Medicine; Visit Provider Internal Medicine | DX: I48.0 Paroxysmal atrial fibrillation (principal); Z79.01 Long term (current) use of anticoagulants; Z51.81 Encounter for therapeutic drug level monitoring | CPT/HCPCS: 85610; 99211 ==

== ENCOUNTER 2023-10-05 08:07 | Outpatient (REF) | payer MEDICARE, SELFPAY ==
--- NOTE | ~2023-10-05 | US_ITS ---
EXAMINATION: NONINVASIVE ASSESSMENT OF THE ARTERIES OF BOTH LOWER EXTREMITIES WITH PVR EXAM AND BILATERAL LOWER EXTREMITY DUPLEX Micehla Vincent MD CLINICAL INFORMATION: Peripheral vascular disease TECHNIQUE: Ankle pulse volume recordings, ankle pressure measurements and ankle brachial indices were obtained of the lower extremity arterial system bilaterally in addition to duplex Doppler techniques with wave form analysis and measurement of velocities in the common femoral, profunda femoral, superficial femoral, popliteal and tibial arteries. The study was performed only at rest. COMPARISON: Noninvasive arterial exam on 07/28/2022 FINDINGS: a) AT REST: RIGHT LE. The right ankle-brachial index is: 1.23 * >0.97-1.25 = normal - no significant arterial disease * 0.75-0.96 = mild peripheral arterial disease * 0.5-0.74 = moderate peripheral arterial disease * <0.50 = severe peripheral arterial disease 2. Right ankle pressure: Abnormal 3. Right ankle PVR waveform: Abnormal 4. Right direct duplex Doppler findings: Common femoral artery: 77 cm/s, Multiphasic Profunda femoris artery: 103 cm/s, Multiphasic Superficial femoral artery (proximal): 97 cm/s, Multiphasic Superficial femoral artery (mid): 87 cm/s, Multiphasic Superficial femoral artery (distal): 75 cm/s, Multiphasic Proximal Popliteal artery: 65 cm/s, Multiphasic Mid posterior tibial artery: 103 cm/s, monophasic LEFT LE. The left ankle-brachial index is: 1.23 * >0.97-1.25 = normal - no significant arterial disease * 0.75-0.96 = mild peripheral arterial disease * 0.5-0.74 = moderate peripheral arterial disease * <0.50 = severe peripheral arterial disease 2. Left ankle pressure: Abnormal 3. Left ankle PVR waveform: Abnormal 4. Left direct duplex Doppler findings: Common femoral artery: 108 cm/s, Multiphasic Profunda femoris artery: 101 cm/s, Multiphasic Superficial femoral artery (proximal): 121 cm/s, Multiphasic Superficial femoral artery (mid): 114 cm/s, Multiphasic Superficial femoral artery (distal): 59 cm/s, Multiphasic Proximal Popliteal artery: 93 cm/s, Multiphasic Mid posterior tibial artery: 45 cm/s, monophasic There is a 2.2 x 0.6 x 0.9 cm complex fluid collection in the left popliteal fossa. US/US arterial duplex LE BI IMPRESSION: RIGHT LEG: Preserved CLIFFORD though this may be secondary to atherosclerotic calcification as there are elevated ankle pressures and abnormal PVR is. Monophasic flow in the posterior tibial artery. LEFT LEG: Preserved CLIFFORD though this may be secondary to atherosclerotic calcification as there are elevated ankle pressures and abnormal PVR is. Monophasic flow in the posterior tibial artery.
== END 2023-10-05 08:08 | disposition home or self-care (01) ==
LOC: HO.US 08:07
PROVIDERS: PCP Internal Medicine; Visit Provider Surgery Vascular Surgery
DX: I73.9 Peripheral vascular disease, unspecified (principal)
CPT/HCPCS: 93923; 93925

== ENCOUNTER 2023-10-10 13:59 | Outpatient (AMB) | payer MEDICARE, SELFPAY ==
[2023-10-10 14:05] VITALS: BMI 31.0
--- NOTE | 2023-10-10 14:05 | MHC.OFFVIS ---
Intake Vital Signs 10/10/23 14:05 Height 5 ft 8 in Weight 204 lb BMI 31.0 Intake Visit Reasons: 1 year f/u PAD US 10/05/23 Intake Note: 1 yr follow up arterial US 10/05/03. Pt states that he gets cramping in the left LE and LE swelling. Pt states he can almost walk a mile, not as far as last year, he gets cramping in the Right Thigh and has to sit and rest. Accompanied by: Spouse Allergies environmental allergies Adverse Reaction (Intermediate, Verified 10/10/23 14:11) Itchy Eyes HPI 1 year f/u PAD US 10/05/23 HPI Details Very pleasant 83-year-old gentleman presents for routine surveillance follow-up for peripheral vascular disease. He had a left lower extremity endovascular intervention several years prior by Dr. Mena. At the current time he appears to be doing relatively well. He appears to have slowed down through the years as he is nearly 84. He continues to walk and carry out his daily activities without any difficulty. Reports that he can go almost a half a mi with no issues. He now presents to us for routine follow-up. [facility] Medical History Diabetes mellitus with coincident hypertension Diabetes mellitus H/O coronary angiogram Diabetes Surgical History History of appendectomy History of cholecystectomy History of tonsillectomy History of removal of calculus of renal pelvis through percutaneous nephrostomy Toe amputee Family History Father CAD (coronary artery disease) Past heart attack Mother Diabetes Brother No problems noted. Brother Testicular cancer Brother S/P triple vessel bypass Daughter No problems noted. Daughter No problems noted. Maternal Grandmother Hypertension Social History Housing: House Alcohol intake: never Patient Tobacco Use Status: Never used Tobacco e-Cigarette/Vaping Use: Never Used Second Hand Smoke Exposure: No service: No Current occupational status: retired Cognitive needs: No Hearing needs: No Vision needs: No Review of Systems Const All systems reviewed & are unremarkable except as noted in HPI and below Reports no additional complaints ENT Reports Normal hearing present Card Denies chest pain, Denies chest pain at rest, Denies chest pain with activity and Denies pedal edema Resp Denies cough GI Denies abdominal pain Musc Denies abnormal gait, Denies muscle cramps and Denies radiating pain into limb Skin/Breast Denies skin ulcer and Denies wounds Neuro Reports Normal hearing present and Denies abnormal gait Psych Reports no additional complaints Physical Exam Vital Signs: BMI result Body Mass Index 31.0 Const General: cooperative, healthy appearing and comfortable Orientation/consciousness: oriented to person, oriented to place and oriented to time HEENT Head: Yes normal to inspection Neck Neck: Yes normal visual inspection Carotids: no bruits Chest Chest palpation & inspection: normal inspection of the chest Resp Effort & Inspection: normal respiratory effort and able to speak in complete sentences Auscultation: clear to auscultation bilaterally, no crackles, no rales, no rhonchi and no wheezes Cardio Rate: regular rate Rhythm: regular rhythm Heart sounds: S1 normal heart sound present and S2 normal heart sound present Bruits: no carotid bruits Peripheral pulses: Peripheral pulses 2+ throughout GI Inspection: Yes normal to inspection Skin Wounds: no wounds Hair: normal Neuro General: oriented to person, oriented to place and oriented to time Cranial nerves: Yes CN's II-XII intact bilaterally and Yes Normal hearing present Cognition (Neuro): normal cognition Motor exam (neuro): 5/5 motor strength present throughout Extrem Other: venous exam: No significant superficial varicosities or spider telangiectasias, minimal edema General: No clubbing, No cyanosis and No edema Psych Appearance: grossly normal Mental Status: mental status grossly normal Speech and movement: Normal speech and movement present Results Reviewed Results Reviewed: Noninvasive arterial testing dated 10/05/2023 demonstrates CLIFFORD on the right of 1.23 and on the left of 1.23 with multi phasic flow all the way down. Written report and images were reviewed. Assessment & Plan Assessment & Plan (1) PAD (peripheral artery disease): Code(s): I73.9 - Peripheral vascular disease, unspecified Plan: In short patient has stable claudication. I did review the pathophysiology of peripheral vascular disease with the patient. In addition we did discuss routine conservative measures including a healthy diet and the importance of exercise and ambulation. We did discuss risk factor modification. The patient will continue to to follow-up with surveillance follow-up in approximately 1 year. Thank you for allowing us to participate in this patient's care. If there are any questions or concerns please do not hesitate to contact us. Orders: Orders US arterial duplex LE BI 1 Year I73.9 - Peripheral vascular disease, unspecified Coding Level of Care Code Est Pt Level 4 (98969) Diagnoses PAD (peripheral artery disease) I73.9
== END 2023-10-10 14:42 | disposition home or self-care (01) ==
PROVIDERS: PCP Internal Medicine; Visit Provider Surgery Vascular Surgery
DX: I73.9 Peripheral vascular disease, unspecified (principal)
CPT/HCPCS: 99213

== ENCOUNTER → 2023-10-10 13:59 | Outpatient (BNVA) | payer MEDICARE, SELFPAY | PROVIDERS: PCP Internal Medicine; Visit Provider Surgery Vascular Surgery | DX: I73.9 Peripheral vascular disease, unspecified (principal) | CPT/HCPCS: 99212 ==

== ENCOUNTER 2023-10-20 11:15 | Outpatient (AMB) | payer MEDICARE, SELFPAY ==
[2023-10-20 11:29] LABS: Prothrombin Time Whole Bld POC 27.4 sec (11.1-13.5); ~PT, ~INR - Anti Coag Clinic 2.3 (0.9-1.1)
--- NOTE | 2023-10-20 11:34 | MHC.OFFVISCO ---
Intake Intake Visit Reasons: Anticoagulation Allergies environmental allergies Adverse Reaction (Intermediate, Verified 10/20/23 11:24) Itchy Eyes Medication List - Last Reconciled 10/20/23 by Noreen Tabor RN ascorbate calcium (vitamin C) 500 mg PO DAILY atenolol 25 mg PO DAILY atorvastatin 10 mg PO BEDTIME blood sugar diagnostic (FreeStyle Lite Strips) USE 1 STRIP TO CHECK BLOOD GLUCOSE ONCE DAILY clopidogrel 75 mg PO DAILY 90 days finasteride 5 mg PO DAILY flaxseed oil 1,000 mg PO DAILY gabapentin 100 mg PO TID glimepiride 2 mg PO BID 90 days glucosamine-chondroitin 250-200 mg (Osteo Bi-Flex) 2 tabs PO TID lisinopril 2.5 mg PO DAILY lisinopril 10 mg PO DAILY metformin 1,000 mg PO BID multivitamin (Daily Multi-Vitamin tablet) 1 tab PO DAILY omega-3 fatty acids (Fish Oil Concentrate) 1,000 mg PO DAILY [osteo bioflex PO] pioglitazone 30 mg PO DAILY 30 days tamsulosin 0.4 mg PO DAILY warfarin See Protocol 4 mg orally 1-2 per day; Nursing Note INR: 2.3 in therapeutic range Medications and supplements reviewed No changes in health, diet, medications, or supplements, Denies any signs and symptoms of bleeding or bruising or clotting. Bleeding, bruising, clotting discussed Nutritional guidance given Dose: 4MG X 2 DAYS / 6MG X 5 DAYS F/U INR: 1 MONTH Patient verbalizes understanding of instructions given Anti-Coag Initial Assessment Social Hx Patient Tobacco Use Status: Never used Tobacco alcohol intake: never Coding Level of Care Code Est Patient Level 1 Diagnoses Current use of anticoagulant therapy Z79.01 Assessment & Plan Assessment & Plan (1) Current use of anticoagulant therapy: Code(s): Z79.01 - longterm (current) use of anticoagulants Category: Medical
== END 2023-10-20 11:37 | disposition home or self-care (01) ==
LOC: HO.ACS 11:15
PROVIDERS: PCP Internal Medicine; Visit Provider Internal Medicine
DX: Z79.01 Long term (current) use of anticoagulants (principal)

== ENCOUNTER → 2023-10-20 11:15 | Outpatient (BNVA) | payer MEDICARE, SELFPAY | PROVIDERS: PCP Internal Medicine; Visit Provider Internal Medicine | DX: I48.0 Paroxysmal atrial fibrillation (principal); Z79.01 Long term (current) use of anticoagulants; Z51.81 Encounter for therapeutic drug level monitoring | CPT/HCPCS: 85610; 99211 ==

== ENCOUNTER 2023-11-17 11:41 | Outpatient (AMB) | payer MEDICARE, SELFPAY ==
--- NOTE | 2023-11-17 11:53 | MHC.OFFVISCO ---
Intake Intake Visit Reasons: Anticoagulation Allergies environmental allergies Adverse Reaction (Intermediate, Verified 11/17/23 11:42) Itchy Eyes Medication List - Last Reconciled 11/17/23 by Noreen Tabor RN ascorbate calcium (vitamin C) 500 mg PO DAILY atenolol 25 mg PO DAILY atorvastatin 10 mg PO BEDTIME blood sugar diagnostic (FreeStyle Lite Strips) USE 1 STRIP TO CHECK BLOOD GLUCOSE ONCE DAILY clopidogrel 75 mg PO DAILY 90 days finasteride 5 mg PO DAILY flaxseed oil 1,000 mg PO DAILY gabapentin 100 mg PO TID glimepiride 2 mg PO BID 90 days glucosamine-chondroitin 250-200 mg (Osteo Bi-Flex) 2 tabs PO TID lisinopril 2.5 mg PO DAILY lisinopril 10 mg PO DAILY metformin 1,000 mg PO BID multivitamin (Daily Multi-Vitamin tablet) 1 tab PO DAILY omega-3 fatty acids (Fish Oil Concentrate) 1,000 mg PO DAILY [osteo bioflex PO] pioglitazone 30 mg PO DAILY 30 days tamsulosin 0.4 mg PO DAILY warfarin See Protocol 4 mg orally 1-2 per day; Nursing Note INR: 2.7 in therapeutic range Medications and supplements reviewed No changes in health, diet, medications, or supplements, Denies any signs and symptoms of bleeding or bruising or clotting. 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
[2023-11-17 15:48] LABS: ~PT, ~INR - Anti Coag Clinic 2.7 (0.9-1.1)
== END 2023-11-17 11:55 | disposition home or self-care (01) ==
LOC: HO.ACS 11:41
PROVIDERS: PCP Internal Medicine; Visit Provider Internal Medicine
DX: Z79.01 Long term (current) use of anticoagulants (principal)

== ENCOUNTER → 2023-11-17 11:41 | Outpatient (BNVA) | payer MEDICARE, SELFPAY | PROVIDERS: PCP Internal Medicine; Visit Provider Internal Medicine | DX: I48.0 Paroxysmal atrial fibrillation (principal); Z51.81 Encounter for therapeutic drug level monitoring; Z79.01 Long term (current) use of anticoagulants | CPT/HCPCS: 85610; 99211 ==

== ENCOUNTER 2023-12-14 09:09 | Outpatient (AMB) | payer MEDICARE, SELFPAY ==
[2023-12-14 09:18] VITALS: BP 180/78; PULSE 53; BMI 30.2
--- NOTE | 2023-12-14 09:18 | MHC.OFFVIS ---
Vital Signs 12/14/23 09:18 Height 5 ft 8 in Weight 198 lb 6.656 oz BMI 30.2 BP 180/78 H Blood Pressure Location Lt brachial Position Sitting Pulse 53 Pulse Source Monitor Intake Visit Reasons: 1 yr f/up Intake Note: pt has ov with ekg pt feels good no concerns Accompanied by: Spouse Allergies environmental allergies Adverse Reaction (Intermediate, Verified 11/17/23 11:42) Itchy Eyes Medication List - Last Reconciled 12/14/23 by Danis Garsia MD ascorbate calcium (vitamin C) 500 mg PO DAILY atenolol 25 mg PO DAILY atorvastatin 10 mg PO BEDTIME blood sugar diagnostic (FreeStyle Lite Strips) USE 1 STRIP TO CHECK BLOOD GLUCOSE ONCE DAILY clopidogrel 75 mg PO DAILY 90 days finasteride 5 mg PO DAILY flaxseed oil 1,000 mg PO DAILY gabapentin 100 mg PO TID glimepiride 2 mg PO BID 90 days glucosamine-chondroitin 250-200 mg (Osteo Bi-Flex) 2 tabs PO TID lisinopril 10 mg PO DAILY metformin 1,000 mg PO BID multivitamin (Daily Multi-Vitamin tablet) 1 tab PO DAILY omega-3 fatty acids (Fish Oil Concentrate) 1,000 mg PO DAILY pioglitazone 30 mg PO DAILY 30 days tamsulosin 0.4 mg PO DAILY warfarin See Protocol 4 mg orally 1-2 per day; HPI Comments Details: Frankie comes for follow-up. He is accompanied by his . He denies any cardiac symptoms at this point time. Denies any exertional chest pain or shortness of breath. Able to do activities around the house. Notices leg edema, more on the left. Denies any orthopnea, PND. No prolonged palpitations irregular heartbeat. No bleeding issues or neurologic events. Currently on warfarin being followed by [facility]. Noted that his blood pressure has been elevated on several office visits although he does not have any symptoms related to it. He does not have a way to monitor blood pressure at home. Continues to have claudication but these symptoms are stable and has been following with vascular services routinely. No lightheadedness, syncope. [facility], LAT[facility] Medical History Diabetes mellitus with coincident hypertension Diabetes mellitus H/O coronary angiogram Diabetes Surgical History History of appendectomy History of cholecystectomy History of tonsillectomy History of removal of calculus of renal pelvis through percutaneous nephrostomy Toe amputee Family History Father CAD (coronary artery disease) Past heart attack Mother Diabetes Brother No problems noted. Brother Testicular cancer Brother S/P triple vessel bypass Daughter No problems noted. Daughter No problems noted. Maternal Grandmother Hypertension Social History Housing: House Alcohol intake: never Patient Tobacco Use Status: Never used Tobacco e-Cigarette/Vaping Use: Never Used Second Hand Smoke Exposure: No service: No Current occupational status: retired Cognitive needs: No Hearing needs: No Vision needs: No Review of Systems Const Denies weakness ENT Denies dizziness Card Denies chest pain, Denies chest pain with activity, Denies syncope, Denies rapid heart rate, Denies pedal edema, Denies edema, Denies leg edema, Denies lightheadedness, Denies palpitations, Denies dyspnea, Denies dyspnea on exertion and Denies orthopnea Resp Denies cough, Denies dyspnea and Denies dyspnea on exertion GI Denies hematochezia and Denies change in stool character Musc Denies abnormal gait, Denies muscle cramps, Denies muscle weakness, Denies numbness, Denies radiating pain into limb and Denies tingling Neuro Denies abnormal gait, Denies dizziness, Denies syncope, Denies numbness, Denies tingling and Denies weakness Endo Denies palpitations Physical Exam Vital Signs: Last Vital Signs Pulse 53 12/14/23 09:18 BP 180/78 H 12/14/23 09:18 BMI result Body Mass Index 30.2 Const General: cooperative, comfortable, no acute distress, alert and awake Nutritional Appearance: overweight Orientation/consciousness: patient oriented x3 Limitations: no limitations Neck Neck: Yes trachea midline and Yes no JVD Resp Effort & Inspection: normal respiratory effort Auscultation: clear to auscultation bilaterally Cardio Jugular venous distension: no JVD Palpation: normal PMI Rate: regular rate Rhythm: regular rhythm Heart sounds: S1 normal heart sound present and S2 normal heart sound present GI Auscultation: normal bowel sounds Skin General skin exam: no rashes or lesions noted Neuro General: patient oriented x3 and no focal motor deficits Extrem General: No clubbing, No cyanosis and Yes edema (Bilateral below knee edema, left greater than right) Psych Appearance: grossly normal Office Procedures EKG Details: EKG shows sinus bradycardia with first-degree AV block otherwise normal EKG 42685-[id number], Complete Assessment & Plan Assessment & Plan (1) Uncontrolled hypertension: Code(s): I10 - Essential (primary) hypertension Category: Medical Plan: Uncontrolled hypertension this elderly gentleman with multiple cardiovascular morbidities. Will obtain an echocardiogram near future. Needs better blood pressure control. Will start him on amlodipine 5 mg daily. Will also prescribe him a blood pressure monitor if he can acquire rate will be very easy to manage his blood pressure with more data. Follow-up office visit in 4 weeks for blood pressure check. Low-salt diet was discussed. Continue other therapy. Will obtain blood work today given his leg edema with BNP as well as BNP. Importance of good blood pressure control was discussed. He shows understanding. Given his PVD he needs to be on more intense lipid modification. I have taken the liberty to increase atorvastatin to 20 mg daily. Follow-up lipid panel in 3 months time. (2) Paroxysmal A-fib: Code(s): I48.0 - Paroxysmal atrial fibrillation Category: Medical Plan: Paroxysmal atrial fibrillation without any obvious recurrence at this point time. Continue rhythm control approach which has benefitted him. No indication for antiarrhythmic drug therapy at this point time. Continue low-dose atenolol therapy can not further uptitrate due to his low heart rate at rest. Currently on full oral anticoagulation warfarin being followed by [facility]. Maintain target INR between 2 and 3. Will follow up in the clinic in 1 year's time, sooner p.r.n.. Thank you for allowing me to partake in his care Orders: Orders CA echo transthoracic complete Today I48.0 - Paroxysmal atrial fibrillation B Type Natriuretic Peptide Today I48.0 - Paroxysmal atrial fibrillation Basic Metabolic Panel Today I48.0 - Paroxysmal atrial fibrillation Complete Blood Count no Diff Today I48.0 - Paroxysmal atrial fibrillation Medications: New amlodipine 5 mg PO DAILY 30 tabs 5RF blood pressure test kit-large (Shake Arm BP Monitor kit) As directed 1 ea 0RF atorvastatin 20 mg PO DAILY 30 tabs 5RF Discontinued atorvastatin Discontinued Reason: Doctor's Order 10 mg PO BEDTIME 90 tabs 2RF Coding Level of Care Code Est Pt Level 4 (16551) Diagnoses Uncontrolled hypertension I10 Paroxysmal A-fib I48.0 CPT Codes EKG - CPT: 64949-[id number], Complete ([id number])
== END 2023-12-14 09:43 | disposition home or self-care (01) ==
PROVIDERS: PCP Internal Medicine; Visit Provider Internal Medicine Cardiovascular Disease
DX: I10 Essential (primary) hypertension (principal); I48.0 Paroxysmal atrial fibrillation
CPT/HCPCS: 93010; 99214

== ENCOUNTER 2023-12-14 09:09 | Outpatient (REF) | payer MEDICARE, SELFPAY ==
[2023-12-14 11:02] LABS: Hematocrit 32.1 % (42.0-52.0); Hemoglobin 10.8 g/dl (14.0-18.0); Mean Corpuscular HGB Conc 33.6 g/dl (31.0-36.0); Mean Corpuscular Hemoglobin 33.2 pg (27.0-33.0); Mean Corpuscular Volume 98.8 fL (80.0-98.0); Mean Platelet Volume 11.3 fL (9.4-12.4); Platelet Count 121 X10*3/uL (160-400); Red Blood Count 3.25 X10*6/uL (4.60-5.80); Red Cell Distribution Width 13.5 % (11.0-16.0)
[2023-12-14 11:23] LABS: B Type Natriuretic Peptide 66 pg/mL (<100)
[2023-12-14 11:25] LABS: Anion Gap 8 (12-20); Blood Urea Nitrogen 28 mg/dL (9-16); Calcium 8.9 mg/dL (8.4-10.2); Carbon Dioxide 24 mmol/L (22-29); Chloride 109 mmol/L (96-108); Estimated Glomerular Filt Rate 44; Glucose Random 153 mg/dL (60-115); Potassium 5.1 mmol/L (3.3-5.1); Sodium 136 mmol/L (135-145)
== END 2023-12-14 09:10 | disposition home or self-care (01) ==
LOC: HO.LAB 09:09
PROVIDERS: PCP Internal Medicine; Visit Provider Internal Medicine Cardiovascular Disease
DX: I48.0 Paroxysmal atrial fibrillation (principal); I10 Essential (primary) hypertension
CPT/HCPCS: 36415; 80048; 83880; 85027; 93005; 99212

== ENCOUNTER 2023-12-22 11:12 | Outpatient (AMB) | payer MEDICARE, SELFPAY ==
[2023-12-22 11:25] LABS: Prothrombin Time Whole Bld POC 47.4 sec (11.1-13.5)
--- NOTE | 2023-12-22 11:30 | MHC.OFFVISCO ---
Intake Intake Visit Reasons: Anticoagulation Allergies environmental allergies Adverse Reaction (Intermediate, Verified 12/22/23 11:13) Itchy Eyes Medication List - Last Reconciled 12/22/23 by Bethany Richardson RN amlodipine 5 mg PO DAILY ascorbate calcium (vitamin C) 500 mg PO DAILY atenolol 25 mg PO DAILY atorvastatin 20 mg PO DAILY blood pressure test kit-large (SureLife Arm BP Monitor kit) As directed blood sugar diagnostic (FreeStyle Lite Strips) USE 1 STRIP TO CHECK BLOOD GLUCOSE ONCE DAILY clopidogrel 75 mg PO DAILY 90 days finasteride 5 mg PO DAILY flaxseed oil 1,000 mg PO DAILY gabapentin 100 mg PO TID glimepiride 2 mg PO BID 90 days glucosamine-chondroitin 250-200 mg (Osteo Bi-Flex) 2 tabs PO TID lisinopril 10 mg PO DAILY metformin 1,000 mg PO BID multivitamin (Daily Multi-Vitamin tablet) 1 tab PO DAILY omega-3 fatty acids (Fish Oil Concentrate) 1,000 mg PO DAILY pioglitazone 30 mg PO DAILY 30 days tamsulosin 0.4 mg PO DAILY warfarin See Protocol 4 mg orally 1-2 per day; Nursing Note INR 4.0?out of therapeutic range 2-3 Medications and supplements reviewed Patient status: well Medications or supplements: no changes Diet: usual diet for pt Denies any signs and symptoms of bleeding or clotting or unusual bruising Bleeding, bruising, clotting discussed Nutritional guidance given: to have a serving of greens today Dose: hold today's dose of 6mg then resume usual dose of 6mg X 5 days and 4mg X 2 days F/U INR Date : 3 weeks per pt request?? Patient verbalizing understanding of instructions given. 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
== END 2023-12-22 11:34 | disposition home or self-care (01) ==
LOC: HO.ACS 11:12
PROVIDERS: PCP Internal Medicine; Visit Provider Internal Medicine
DX: Z79.01 Long term (current) use of anticoagulants (principal)

== ENCOUNTER → 2023-12-22 11:12 | Outpatient (BNVA) | payer MEDICARE, SELFPAY | PROVIDERS: PCP Internal Medicine; Visit Provider Internal Medicine | DX: I48.0 Paroxysmal atrial fibrillation (principal); Z79.01 Long term (current) use of anticoagulants; Z51.81 Encounter for therapeutic drug level monitoring | CPT/HCPCS: 85610; 99211 ==

== ENCOUNTER → 2024-01-01 07:47 | Outpatient (REF) | payer MEDICARE, SELFPAY ==
--- NOTE | ~2024-01-01 | US_ITS ---
EXAMINATION: ULTRASOUND OF KIDNEYS WITH RENAL ARTERY DOPPLER CLINICAL INFORMATION: Hypertension. COMPARISON: Renal ultrasound 05/16/2013. TECHNIQUE: Ultrasound of the kidneys was performed along with color flow Doppler imaging and velocity measurements in the proximal mid and distal renal arteries. Aortic velocities were measured and renal/aortic ratios were calculated. FINDINGS: The kidneys appeared normal with the right kidney measuring 12.1 x 5.2 x 5.5 cm and the left kidney measuring 12.3 x 5.3 x 4.9 cm. No renal stones or hydronephrosis is seen. Bilateral benign Bosniak class I renal cysts are noted, the largest measuring 4.2 cm in the right lower pole which require no additional imaging or follow-up. No solid renal masses are seen. Renal cortical thickness appears normal. Velocity measurements in the proximal mid and distal renal arteries are normal. Velocity in the aorta is over 100 cm/s at 139 cm/s and, therefore cannot be used to calculate renal aortic ratios. The bladder appeared unremarkable. US/US renal doppler IMPRESSION: No evidence to suggest renal artery stenosis.
--- NOTE | ~2024-01-01 | US_ITS ---
EXAMINATION: ULTRASOUND OF KIDNEYS WITH RENAL ARTERY DOPPLER CLINICAL INFORMATION: Hypertension. COMPARISON: Renal ultrasound 05/16/2013. TECHNIQUE: Ultrasound of the kidneys was performed along with color flow Doppler imaging and velocity measurements in the proximal mid and distal renal arteries. Aortic velocities were measured and renal/aortic ratios were calculated. FINDINGS: The kidneys appeared normal with the right kidney measuring 12.1 x 5.2 x 5.5 cm and the left kidney measuring 12.3 x 5.3 x 4.9 cm. No renal stones or hydronephrosis is seen. Bilateral benign Bosniak class I renal cysts are noted, the largest measuring 4.2 cm in the right lower pole which require no additional imaging or follow-up. No solid renal masses are seen. Renal cortical thickness appears normal. Velocity measurements in the proximal mid and distal renal arteries are normal. Velocity in the aorta is over 100 cm/s at 139 cm/s and, therefore cannot be used to calculate renal aortic ratios. The bladder appeared unremarkable. US/US renal BI IMPRESSION: No evidence to suggest renal artery stenosis.
--- NOTE | 2024-01-01 07:50 | CA_ITS ---
Transthoracic Echocardiogram Patient (Last, First, Middle): Frankie Valles D Gender: Male Date of : 1940 Age: 83 Procedure Date: 01/01/2024 Procedure Type: Transthoracic Echocardiogram Location: OP Height: 172.72 cm Weight: 87.54 kg BSA: 2.01 m2 Heart Rate: 56 bpm BP: 170 / 74 mmHg Multifocal Button Generator: AKUA Referring MD: Danis Garsia MD Symptoms: I48.0 - Paroxysmal atrial fibrillation Study Quality: Adequate w contrast ECG Rhythm: Bradycardia Conclusions: - The left ventricular systolic function is normal. The calculated ejection fraction is 62% by biplane method. - There is moderate septal asymmetric hypertrophy. - No obvious valvular pathology seen on this study. Findings Procedure Information Contrast agent, definity, is being given per protocol without apparent complications. Left Ventricle Mildly increased left ventricular cavity size. The left ventricular systolic function is normal. The calculated ejection fraction is 62% by biplane method. There is no evidence of regional wall motion abnormalities. Evidence suggests grade I (mild) diastolic dysfunction. There is moderate septal asymmetric hypertrophy. Right Ventricle Mildly increased right ventricular cavity size. There is normal right ventricular systolic function. Atria Both atria are normal in size. Aortic Valve There is a normal trileaflet aortic valve. There is mild calcification of the aortic valve. There is no aortic valve stenosis. There is no aortic valve regurgitation. Mitral Valve The mitral valve appears normal. There is no mitral valve regurgitation. There is no mitral valve stenosis. Pulmonic Valve The pulmonic valve is likely normal. Tricuspid Valve Normal tricuspid valve structure. There is trace tricuspid valve regurgitation. There is no evidence of pulmonary hypertension. Great Vessels The asc aorta is normal in size. Venous The inferior vena cava is normal in size and collapses greater than 50% with inspiration. Pericardium/Pleural There is no evidence of pericardial effusion. Prior Study Comparison No significant change compared to prior study dated: 11/10/2021. Recommendations, Care & Conclusions No obvious valvular pathology seen on this study. Measurements 2D Linear Measurements IVSd: 1.40 0.6-0.9/0.6-1.0 cm LVIDd: 4.18 3.9-5.3/4.2-5.9 cm LVIDd Index: 2.08 2.4-3.2/2.2-3.1 cm/m2 LVIDs: 2.86 2.0-3.6 cm LVPWd: 0.80 0.7-1.1 cm LA Diam: 4.00 2.7-3.8/3.0-4.0 cm LAIDs Index: 1.99 1.5-2.3 cm/m2 LV Mass: 194.25 67-162/88-224 g LV Mass Index: 96.64 43-95/49-115 g/m2 LVOT Diam: 2.10 3.0+(-)1.3 cm 2D Systolic Function EF 4C: 71.40 >55% EF 2C: 55.80 >55% EF BiP: 62.20 >55% Mitral Valve MV Pk E: 0.52 MV PK A: 0.74 MV Decel Time: 272.00 E/A: 0.70 E'Lateral: 7.18 E'Medial: 3.48 E/E' Med: 15.00 E/E' Lat: 7.30 PHT: 80.00 MVA PHT: 2.75 Decel Lyon: 1.92 Aortic Valve AoV Pk Derrek: 1.21 AoV Pk Grad: 6.00 DELMI: 3.49 LVOT LVOT Pk Derrek: 1.22 LVOT Mn Derrek: 0.78 LVOT VTI: 0.30 LVOT Pk Grad: 6.00 LVOT Mn Grad: 3.00 LVOT Diam: 2.10 LVOT Area: 3.46 Diastolic Function MV Pk E: 0.52 MV Pk A: 0.74 E/A: 0.70 E'Medial: 3.48 E/E' Med: 15.00 E' Laterial: 7.18 E/E' Lat: 7.30 Right Ventricle TAPSE (mm): 20.80 TVS' Derrek: 13.10 Tricuspid Valve RA Press: 3.00 Great Vessels Aorta Sinus of Valsalva: 3.70 2.0-3.5 cm Ao Asc: 3.70 2.1-3.4 cm Pulmonary Valve PV Pk Derrek: 0.92 Peak PV Grad: 3.00 Updated in Other Vendor System with Status of Final John Pérez MD electronically signed on 01/01/2024 10:16:52 AM with status of Final
== END ==
LOC: HO.CARD 07:47
PROVIDERS: PCP Internal Medicine; Visit Provider Internal Medicine Cardiovascular Disease
DX: I10 Essential (primary) hypertension (principal); I48.0 Paroxysmal atrial fibrillation
CPT/HCPCS: 76775; 93306; 93975; Q9957

== ENCOUNTER → 2024-01-01 07:50 | Outpatient (BNV) | payer MEDICARE, SELFPAY | PROVIDERS: PCP Internal Medicine; Visit Provider Internal Medicine | DX: I35.8 Other nonrheumatic aortic valve disorders (principal); I42.2 Other hypertrophic cardiomyopathy | CPT/HCPCS: 93306 ==

== ENCOUNTER 2024-01-05 06:30 | Outpatient (REF) | payer MEDICARE, SELFPAY ==
[2024-01-05 10:40] LABS: Estimated Average Glucose 157 mg/dL; Hemoglobin A1c % 7.1 % (<6.0)
[2024-01-05 10:42] LABS: Alanine Aminotransferase 19 U/L (0-40); Albumin Level 3.5 g/dL (3.5-5.0); Alkaline Phosphatase 47 U/L (39-117); Anion Gap 11 (12-20); Aspartate Amino Transferase 26 U/L (5-37); Bilirubin Total 0.5 mg/dL (0.0-1.0); Blood Urea Nitrogen 34 mg/dL (9-16); Calcium 8.9 mg/dL (8.4-10.2); Carbon Dioxide 22 mmol/L (22-29); Chloride 109 mmol/L (96-108); Cholesterol 128 mg/dL (<200); Estimated Glomerular Filt Rate 41; Glucose Fasting 111 mg/dL (60-99); HDL Cholesterol 30 mg/dL (>40); LDL Cholesterol Calculated 70 mg/dL (<100); Potassium 4.9 mmol/L (3.3-5.1); Sodium 137 mmol/L (135-145); Triglycerides 143 mg/dL (<150)
== END 2024-01-05 06:31 | disposition home or self-care (01) ==
LOC: HO.HMGCLDS 06:30
PROVIDERS: PCP Internal Medicine; Visit Provider Internal Medicine
DX: E78.5 Hyperlipidemia, unspecified (principal); N28.9 Disorder of kidney and ureter, unspecified; R73.9 Hyperglycemia, unspecified
CPT/HCPCS: 36415; 80053; 80061; 83036

== ENCOUNTER 2024-01-09 11:20 | Outpatient (AMB) | payer MEDICARE, SELFPAY ==
[2024-01-09 11:31] LABS: Prothrombin Time Whole Bld POC 33.9 sec (11.1-13.5); ~PT, ~INR - Anti Coag Clinic 2.8 (0.9-1.1)
--- NOTE | 2024-01-09 11:39 | MHC.OFFVISCO ---
Intake Intake Visit Reasons: Anticoagulation Allergies environmental allergies Adverse Reaction (Intermediate, Verified 01/09/24 11:25) Itchy Eyes Medication List - Last Reconciled 01/09/24 by Noreen Tabor RN amlodipine 5 mg PO DAILY ascorbate calcium (vitamin C) 500 mg PO DAILY atenolol 25 mg PO DAILY atorvastatin 20 mg PO DAILY blood pressure test kit-large (SureLife Arm BP Monitor kit) As directed blood sugar diagnostic (FreeStyle Lite Strips) USE 1 STRIP TO CHECK BLOOD GLUCOSE ONCE DAILY clopidogrel 75 mg PO DAILY 90 days finasteride 5 mg PO DAILY flaxseed oil 1,000 mg PO DAILY gabapentin 100 mg PO TID glimepiride 2 mg PO BID 90 days glucosamine-chondroitin 250-200 mg (Osteo Bi-Flex) 2 tabs PO TID lisinopril 10 mg PO DAILY metformin 1,000 mg PO BID multivitamin (Daily Multi-Vitamin tablet) 1 tab PO DAILY omega-3 fatty acids (Fish Oil Concentrate) 1,000 mg PO DAILY pioglitazone 30 mg PO DAILY 30 days tamsulosin 0.4 mg PO DAILY warfarin See Protocol 4 mg orally 1-2 per day; Nursing Note INR: 2.8 in therapeutic range Medications and supplements reviewed No changes in health, diet, medications, or supplements, Denies any signs and symptoms of bleeding or bruising or clotting. Bleeding, bruising, clotting discussed Nutritional guidance given Dose: 4MG X 2 DAYS/ 6MG X 5 DAYS F/U INR: 4 WEEKS Patient verbalizes understanding of instructions given Anti-Coag Initial Assessment Social Hx Patient Tobacco Use Status: Never used Tobacco alcohol intake: never Coding Level of Care Code Est Patient Level 1 Diagnoses Current use of anticoagulant therapy Z79.01 Results AMB INR Fingerstick AMB INR Fingerstick 2.8 Last Edit by Noreen Tabor RN on 01/09/24 11:32 MANUAL ENTRY FAILED INTERFACING ONGOOOOING Assessment & Plan Assessment & Plan (1) Current use of anticoagulant therapy: Code(s): 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
== END 2024-01-09 11:41 | disposition home or self-care (01) ==
LOC: HO.ACS 11:20
PROVIDERS: PCP Internal Medicine; Visit Provider Internal Medicine
DX: Z79.01 Long term (current) use of anticoagulants (principal)

== ENCOUNTER → 2024-01-09 11:20 | Outpatient (BNVA) | payer MEDICARE, SELFPAY | PROVIDERS: PCP Internal Medicine; Visit Provider Internal Medicine | DX: I48.0 Paroxysmal atrial fibrillation (principal); Z79.01 Long term (current) use of anticoagulants; Z51.81 Encounter for therapeutic drug level monitoring | CPT/HCPCS: 85610; 99211 ==

== ENCOUNTER 2024-01-11 09:43 | Outpatient (AMB) | payer MEDICARE, SELFPAY ==
--- NOTE | 2024-01-11 10:02 | A.OFFPC_ITS ---
Vital Signs 01/11/24 10:03 Height 5 ft 8 in Weight 195 lb 6 oz BMI 29.7 BP 130/60 Blood Pressure Location Lt brachial Position Sitting Pulse 50 Pulse Source Pulse Oximeter Pulse Oximetry (%) 96 Oxygen Delivery Method Room Air Intake Visit Reasons: ANNUAL - urine albu/creat ratio needed Intake Note: Patient is here today for a physical. 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 Core Feeder: Present Accompanied by: Spouse Allergies environmental allergies Adverse Reaction (Intermediate, Verified 01/11/24 10:02) Itchy Eyes Medication List - Last Reconciled 01/12/24 by Nicolás Torres MD amlodipine 5 mg PO DAILY ascorbate calcium (vitamin C) 500 mg PO DAILY atenolol 25 mg PO DAILY atorvastatin 20 mg PO DAILY blood pressure test kit-large ([employer] Arm BP Monitor kit) As directed blood sugar diagnostic (FreeStyle Lite Strips) USE 1 STRIP TO CHECK BLOOD GLUCOSE ONCE DAILY clopidogrel 75 mg PO DAILY 90 days finasteride 5 mg PO DAILY flaxseed oil 1,000 mg PO DAILY gabapentin 100 mg PO TID glimepiride 2 mg PO BID 90 days glucosamine-chondroitin 250-200 mg (Osteo Bi-Flex) 2 tabs PO TID lisinopril 10 mg PO DAILY metformin 1,000 mg PO BID multivitamin (Daily Multi-Vitamin tablet) 1 tab PO DAILY omega-3 fatty acids (Fish Oil Concentrate) 1,000 mg PO DAILY pioglitazone 30 mg PO DAILY 30 days tamsulosin 0.4 mg PO DAILY warfarin See Protocol 4 mg orally 1-2 per day; Tobacco use date assessed: 01/11/24 Fall risk assessment: No Falls in past year Last assessed Fall Risk: 01/11/24 Dental Screening Dental Screen Date: 09/13/23 HPI ANNUAL - urine albu/creat ratio needed 2 HPI Details HTN hyperlip and DM; doing well and compliant [facility] Medical History Diabetes mellitus with coincident hypertension Diabetes mellitus H/O coronary angiogram Diabetes Surgical History History of appendectomy History of cholecystectomy History of tonsillectomy History of removal of calculus of renal pelvis through percutaneous nephrostomy Toe amputee Family History Father CAD (coronary artery disease) Past heart attack Mother Diabetes Brother No problems noted. Brother Testicular cancer Brother S/P triple vessel bypass Daughter No problems noted. Daughter No problems noted. Maternal Grandmother Hypertension Social History Housing: House Alcohol intake: never Patient Tobacco Use Status: Never used Tobacco e-Cigarette/Vaping Use: Never Used Second Hand Smoke Exposure: No service: No Current occupational status: retired Cognitive needs: No Hearing needs: No Vision needs: No Questionnaire Thrive Questionnaire Date Thrive assessed: 09/13/23 KALE-7 AMB Questionnaire KALE-7 Date KALE - 7 assessed: 09/13/23 Source: Developed by Drs. Juanito Franklin, Yojana Blood, Monty Rehman and colleagues, with an educational saida from [employer]. Review of Systems Const Denies chills, Denies fatigue, Denies headache(s) and Denies weight loss Eyes Denies change in vision, Denies diplopia and Denies eye pain ENT Denies vertigo, Denies dizziness, Denies headache(s) and Denies nasal discharge Card Denies chest pain, Denies rapid heart rate and Denies dyspnea on exertion Resp Denies chest congestion, Denies cough, Denies pain with cough and Denies dyspnea on exertion GI Denies abdominal pain, Denies hematochezia and Denies change in bowel habits Musc Denies myalgias, Denies arthralgias and Denies joint swelling Skin/Breast Denies lesions and Denies unusual bruising Neuro Denies vertigo, Denies dizziness, Denies headache(s) and Denies focal weakness Endo Denies fatigue Physical exam (Primary Care) Vital Signs: Last Vital Signs Pulse 50 01/11/24 10:03 BP 130/60 01/11/24 10:03 Pulse Ox 96 01/11/24 10:03 Oxygen Delivery Method Room Air 01/11/24 10:03 BMI result Body Mass Index 29.7 Tobacco/Smoking Status: Tobacco use Status Tobacco use date assessed 01/11/24 01/11/24 10:08 Patient Tobacco Use Status Never used Tobacco 01/11/24 10:08 e-Cigarette/Vaping Use Never Used 01/11/24 10:08 Thrive Assessment: Date of Thrive Assessment Date Thrive assessed 09/13/23 01/11/24 10:08 Const General: cooperative, healthy appearing and no acute distress Orientation/consciousness: oriented to person, oriented to place and oriented to time HENMT Head: Yes normal to inspection, Yes normocephalic and Yes atraumatic Mouth: Normal oral and palatal mucosa present and tongue normal Throat: Yes posterior oropharynx normal and Yes uvula midline Eyes General: appearance normal, both eyes and all related structures Neck Neck: Yes normal visual inspection, Yes full ROM and Yes no lymphadenopathy Thyroid: Thyroid normal Carotids: normal carotid upstroke Chest Chest palpation & inspection: normal inspection of the chest Resp Effort & Inspection: normal respiratory effort and able to speak in complete sentences Auscultation: clear to auscultation bilaterally Cardio Jugular venous distension: no JVD Palpation: normal PMI Rate: regular rate Rhythm: regular rhythm Heart sounds: S1 normal heart sound present and S2 normal heart sound present GI Inspection: Yes normal to inspection Palpation (GI): Soft to palpation and No hepatosplenomegaly present Auscultation: normal bowel sounds General: Yes no CVA tenderness Back/Spine/Pelvis Back: no CVA tenderness Skin General skin exam: no rashes or lesions noted Neuro General: oriented to person, oriented to place and oriented to time Extrem General: Yes normal to inspection and Yes full ROM Assessment and Plan Assessment & Plan (1) Physical exam: Code(s): Z00.00 - Encounter for general adult medical examination without abnormal findings Plan: stable (2) Hyperlipidemia: Code(s): E78.5 - Hyperlipidemia, unspecified Plan: stable; same rx (3) Diabetes mellitus with coincident hypertension: Code(s): E11.9 - Type 2 diabetes mellitus without complications; I10 - Essential (primary) hypertension Plan: stable; same rx (4) HTN (hypertension): Code(s): I10 - Essential (primary) hypertension Plan: stable; same rx Orders: Orders Complete Blood Count Auto Diff Today Z13.0 - Encounter for screening for diseases of the blood and blood-forming organs and certain disorders involving the immune mechanism Comprehensive [place]. Panel Fast Today Z13.9 - Encounter for screening, unspecified Hemoglobin A1c Today R73.9 - Hyperglycemia, unspecified Microalbumin, Random (w Creat) Today E11.69 - Type 2 diabetes mellitus with other specified complication, E66.01 - Morbid (severe) obesity due to excess calories Lipid Panel Today Z13.220 - Encounter for screening for lipoid disorders Coding Level of Care Code Est Pt Prev Care >65y(07450) Diagnoses Physical exam Z00.00 Hyperlipidemia E78.5 Diabetes mellitus with coincident hypertension E11.9; I10 HTN (hypertension) I10
[2024-01-11 10:03] VITALS: BP 130/60; PULSE 50; O2SAT 96; BMI 29.7
== END 2024-01-11 10:19 | disposition home or self-care (01) ==
PROVIDERS: PCP Internal Medicine; Visit Provider Internal Medicine
DX: Z00.00 Encounter for general adult medical examination without abnormal findings (principal); E78.5 Hyperlipidemia, unspecified; E11.9 Type 2 diabetes mellitus without complications; I10 Essential (primary) hypertension
CPT/HCPCS: 99397

== ENCOUNTER → 2024-01-24 09:05 | Outpatient (BNVA) | payer MEDICARE, SELFPAY | PROVIDERS: PCP Internal Medicine; Visit Provider Internal Medicine Cardiovascular Disease ==

== ENCOUNTER 2024-02-09 11:18 | Outpatient (AMB) | payer MEDICARE, SELFPAY ==
[2024-02-09 11:39] LABS: Prothrombin Time Whole Bld POC 44.1 sec (11.1-13.5); ~PT, ~INR - Anti Coag Clinic 3.7 (0.9-1.1)
--- NOTE | 2024-02-09 11:47 | MHC.OFFVISCO ---
Intake Intake Visit Reasons: Anticoagulation Allergies environmental allergies Adverse Reaction (Intermediate, Verified 02/09/24 11:33) Itchy Eyes Medication List - Last Reconciled 02/09/24 by Bethany Richardson, RN amlodipine 5 mg PO DAILY ascorbate calcium (vitamin C) 500 mg PO DAILY atenolol 25 mg PO DAILY atorvastatin 20 mg PO DAILY blood pressure test kit-large ([employer] Arm BP Monitor kit) As directed blood sugar diagnostic (FreeStyle Lite Strips) USE 1 STRIP TO CHECK BLOOD GLUCOSE ONCE DAILY clopidogrel 75 mg PO DAILY 90 days finasteride 5 mg PO DAILY flaxseed oil 1,000 mg PO DAILY gabapentin 100 mg PO TID glimepiride 2 mg PO BID 90 days glucosamine-chondroitin 250-200 mg (Osteo Bi-Flex) 2 tabs PO TID lisinopril 10 mg PO DAILY metformin 1,000 mg PO BID multivitamin (Daily Multi-Vitamin tablet) 1 tab PO DAILY omega-3 fatty acids (Fish Oil Concentrate) 1,000 mg PO DAILY pioglitazone 30 mg PO DAILY 30 days tamsulosin 0.4 mg PO DAILY warfarin See Protocol 4 mg orally 1-2 per day; Nursing Note Pt to ACS c/o aches and pains and getting older Took tylenol today for rt shoulder pain but states he doesn't take tylenol everyday. INR 3.7?out of therapeutic range 2-3 Medications and supplements reviewed Patient status: feels well other than above Medications or supplements: no changes Diet: eating more summer vegetables Denies any signs and symptoms of bleeding or clotting or unusual bruising Bleeding, bruising, clotting discussed Nutritional guidance given: to have a serving of greens today Dose: decrease today's dose to 4mg (6mg) then resume usual dose of 6mg X 5 days and 4mg X 2 days F/U INR Date : planned on 2 weeks but pt insisted on 4 weeks?? Patient verbalizing understanding of instructions given. 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
== END 2024-02-09 11:54 | disposition home or self-care (01) ==
LOC: HO.ACS 11:18
PROVIDERS: PCP Internal Medicine; Visit Provider Internal Medicine
DX: Z79.01 Long term (current) use of anticoagulants (principal)

== ENCOUNTER → 2024-02-09 11:18 | Outpatient (BNVA) | payer MEDICARE, SELFPAY | PROVIDERS: PCP Internal Medicine; Visit Provider Internal Medicine | DX: I48.0 Paroxysmal atrial fibrillation (principal); Z79.01 Long term (current) use of anticoagulants; Z51.81 Encounter for therapeutic drug level monitoring | CPT/HCPCS: 85610; 99211 ==

== ENCOUNTER 2024-03-08 11:17 | Outpatient (AMB) | payer MEDICARE, SELFPAY ==
[2024-03-08 11:42] LABS: Prothrombin Time Whole Bld POC 26.7 sec (11.1-13.5); ~PT, ~INR - Anti Coag Clinic 2.2 (0.9-1.1)
--- NOTE | 2024-03-08 11:48 | MHC.OFFVISCO ---
Intake Intake Visit Reasons: Anticoagulation Allergies environmental allergies Adverse Reaction (Intermediate, Verified 03/08/24 11:37) Itchy Eyes Medication List - Last Reconciled 03/08/24 by Noreen Tabor RN amlodipine 5 mg PO DAILY ascorbate calcium (vitamin C) 500 mg PO DAILY atenolol 25 mg PO DAILY atorvastatin 20 mg PO DAILY blood pressure test kit-large ([employer] Arm BP Monitor kit) As directed blood sugar diagnostic (FreeStyle Lite Strips) USE 1 STRIP TO CHECK BLOOD GLUCOSE ONCE DAILY clopidogrel 75 mg PO DAILY 90 days finasteride 5 mg PO DAILY flaxseed oil 1,000 mg PO DAILY gabapentin 100 mg PO TID glimepiride 2 mg PO BID 90 days glucosamine-chondroitin 250-200 mg (Osteo Bi-Flex) 2 tabs PO TID lisinopril 10 mg PO DAILY metformin 1,000 mg PO BID multivitamin (Daily Multi-Vitamin tablet) 1 tab PO DAILY omega-3 fatty acids (Fish Oil Concentrate) 1,000 mg PO DAILY pioglitazone 30 mg PO DAILY 30 days tamsulosin 0.4 mg PO DAILY warfarin See Protocol 4 mg orally 1-2 per day; Nursing Note INR: 2.2 in therapeutic range Medications and supplements reviewed No changes in health, diet, medications, or supplements, Denies any signs and symptoms of bleeding or bruising or clotting. Bleeding, bruising, clotting discussed Nutritional guidance given- EAT A MIX OF FRUITS AND VEGETABLES Dose: 4MG X 2 DAYS/ 6MG X 5 DAYS F/U INR: 1 MONTH Patient verbalizes understanding of instructions given Anti-Coag Initial Assessment Social Hx Patient Tobacco Use Status: Never used Tobacco alcohol intake: never Coding Level of Care Code Est Patient Level 1 Diagnoses Current use of anticoagulant therapy Z79.01 Assessment & Plan Assessment & Plan (1) Current use of anticoagulant therapy: Code(s): Z79.01 - [facility] (current) use of anticoagulants Category: Medical
== END 2024-03-08 11:51 | disposition home or self-care (01) ==
LOC: HO.ACS 11:17
PROVIDERS: PCP Internal Medicine; Visit Provider Internal Medicine
DX: Z79.01 Long term (current) use of anticoagulants (principal)

== ENCOUNTER → 2024-03-08 11:17 | Outpatient (BNVA) | payer MEDICARE, SELFPAY | PROVIDERS: PCP Internal Medicine; Visit Provider Internal Medicine | DX: I48.0 Paroxysmal atrial fibrillation (principal); Z79.01 Long term (current) use of anticoagulants; Z51.81 Encounter for therapeutic drug level monitoring | CPT/HCPCS: 85610; 99211 ==

== ENCOUNTER 2024-04-12 11:13 | Outpatient (AMB) | payer MEDICARE, SELFPAY ==
--- NOTE | 2024-04-12 11:30 | MHC.OFFVISCO ---
Intake Intake Visit Reasons: Anticoagulation Allergies environmental allergies Adverse Reaction (Intermediate, Verified 04/12/24 11:19) Itchy Eyes Medication List - Last Reconciled 04/12/24 by Bethany Richardson RN amlodipine 5 mg PO DAILY ascorbate calcium (vitamin C) 500 mg PO DAILY atenolol 25 mg PO DAILY atorvastatin 20 mg PO DAILY blood pressure test kit-large ([employer] Arm BP Monitor kit) As directed blood sugar diagnostic (FreeStyle Lite Strips) USE 1 STRIP TO CHECK BLOOD GLUCOSE ONCE DAILY clopidogrel 75 mg PO DAILY 90 days finasteride 5 mg PO DAILY flaxseed oil 1,000 mg PO DAILY gabapentin 100 mg PO TID glimepiride 2 mg PO BID 90 days glucosamine-chondroitin 250-200 mg (Osteo Bi-Flex) 2 tabs PO TID lisinopril 10 mg PO DAILY metformin 1,000 mg PO BID multivitamin (Daily Multi-Vitamin tablet) 1 tab PO DAILY omega-3 fatty acids (Fish Oil Concentrate) 1,000 mg PO DAILY pioglitazone 30 mg PO DAILY 30 days tamsulosin 0.4 mg PO DAILY warfarin See Protocol 4 mg orally 1-2 per day; Nursing Note INR: 2.7 in therapeutic range of 2-3 Medications and supplements reviewed No changes in health, diet, medications, or supplements, Denies any signs and symptoms of bleeding or bruising or clotting. Bleeding, bruising, clotting discussed Nutritional guidance given Dose: same dose of 6mg X 5 days and 4mg X 2 days F/U INR: preferred 4 weeks but pt insisted on 5 weeks Patient verbalizes understanding of instructions given Anti-Coag Initial Assessment Social Hx Patient Tobacco Use Status: Never used Tobacco alcohol intake: never Coding Level of Care Code Est Patient Level 1 Diagnoses Current use of anticoagulant therapy Z79.01 Results AMB INR Fingerstick AMB INR Fingerstick 2.7 Last Edit by Bethany Richardson RN on 04/12/24 11:26 interface delay Assessment & Plan Assessment & Plan (1) Current use of anticoagulant therapy: Code(s): Z79.01 - [facility] (current) use of anticoagulants Category: Medical
[2024-04-12 11:32] LABS: Prothrombin Time Whole Bld POC 32.3 sec (11.1-13.5); ~PT, ~INR - Anti Coag Clinic 2.7 (0.9-1.1)
== END 2024-04-12 11:32 | disposition home or self-care (01) ==
LOC: HO.ACS 11:13
PROVIDERS: PCP Internal Medicine; Visit Provider Internal Medicine
DX: Z79.01 Long term (current) use of anticoagulants (principal)

== ENCOUNTER → 2024-04-12 11:13 | Outpatient (BNVA) | payer MEDICARE, SELFPAY | PROVIDERS: PCP Internal Medicine; Visit Provider Internal Medicine | DX: I48.0 Paroxysmal atrial fibrillation (principal); Z79.01 Long term (current) use of anticoagulants; Z51.81 Encounter for therapeutic drug level monitoring | CPT/HCPCS: 85610; 99211 ==

== ENCOUNTER 2024-05-10 11:26 | Outpatient (AMB) | payer MEDICARE, SELFPAY ==
[2024-05-10 11:29] VITALS: BP 134/70; PULSE 72; O2SAT 96; BMI 30.1
--- NOTE | 2024-05-10 11:29 | MHC.PC.OV ---
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: No Accompanied by: Self / Same As Patient Allergies environmental allergies Adverse Reaction (Intermediate, Verified 05/10/24 11:29) Itchy Eyes Medication List - Last Reconciled 05/13/24 by Nicolás Torres MD amlodipine 5 mg PO DAILY ascorbate calcium (vitamin C) 500 mg PO DAILY atenolol 25 mg PO DAILY atorvastatin 20 mg PO DAILY blood pressure test kit-large ([employer] Arm BP Monitor kit) As directed blood sugar diagnostic (FreeStyle Lite Strips) USE 1 STRIP TO CHECK BLOOD GLUCOSE ONCE DAILY clopidogrel 75 mg PO DAILY 90 days finasteride 5 mg PO DAILY flaxseed oil 1,000 mg PO DAILY gabapentin 100 mg PO TID glimepiride 2 mg PO BID 90 days glucosamine-chondroitin 250-200 mg (Osteo Bi-Flex) 2 tabs PO TID lisinopril 10 mg PO DAILY metformin 1,000 mg PO BID multivitamin (Daily Multi-Vitamin tablet) 1 tab PO DAILY omega-3 fatty acids (Fish Oil Concentrate) 1,000 mg PO DAILY pioglitazone 30 mg PO DAILY 30 days tamsulosin 0.4 mg PO DAILY warfarin See Protocol 4 mg orally 1-2 per day; Tobacco use date assessed: 01/11/24 Fall risk assessment: No Falls in past year Last assessed Fall Risk: 05/10/24 Dental Screening Dental Screen Date: 09/13/23 HPI Rsch from 05/16 - Follow up HPI Details DM and HTN on rx; doing well and compliant [facility] Medical History Diabetes mellitus with coincident hypertension Diabetes mellitus H/O coronary angiogram Diabetes Surgical History History of appendectomy History of cholecystectomy History of tonsillectomy History of removal of calculus of renal pelvis through percutaneous nephrostomy Toe amputee Family History Father CAD (coronary artery disease) Past heart attack Mother Diabetes Brother No problems noted. Brother Testicular cancer Brother S/P triple vessel bypass Daughter No problems noted. Daughter No problems noted. Maternal Grandmother Hypertension Social History Housing: House Alcohol intake: never Patient Tobacco Use Status: Never used Tobacco Tobacco use type: Cigarette e-Cigarette/Vaping Use: Never Used Second Hand Smoke Exposure: No service: No Current occupational status: retired Cognitive needs: No Hearing needs: No Vision needs: No Questionnaire Thrive Questionnaire Date Thrive assessed: 09/13/23 KALE-7 AMB Questionnaire KALE-7 Date KALE - 7 assessed: 09/13/23 Source: Developed by Drs. Juanito Franklin, Yojana Blood, Monty Rehman and colleagues, with an educational saida from [employer]. Review of Systems Const Denies chills, Denies headache(s) and Denies weight loss ENT Denies headache(s) Card Denies chest pain, Denies syncope, Denies irregular heart rhythm and Denies dyspnea Resp Denies chest congestion, Denies cough and Denies dyspnea GI Denies abdominal pain, Denies change in stool character, Denies nausea and Denies vomiting Musc Denies deformity and Denies joint swelling Neuro Denies syncope and Denies headache(s) Physical exam (Primary Care) Vital Signs: Last Vital Signs Pulse 72 05/10/24 11:29 BP 134/70 05/10/24 11:29 Pulse Ox 96 05/10/24 11:29 Oxygen Delivery Method Room Air 05/10/24 11:29 BMI result Body Mass Index 30.1 Tobacco/Smoking Status: Tobacco use Status Tobacco use date assessed 01/11/24 05/10/24 11:30 Patient Tobacco Use Status Never used Tobacco 05/10/24 11:30 Tobacco use type Cigarette 05/10/24 11:30 e-Cigarette/Vaping Use Never Used 05/10/24 11:30 Thrive Assessment: Date of Thrive Assessment Date Thrive assessed 09/13/23 05/10/24 11:30 Const General: cooperative, comfortable, no acute distress and alert Neck Neck: Yes no lymphadenopathy Thyroid: Thyroid normal Resp Effort & Inspection: normal respiratory effort Auscultation: clear to auscultation bilaterally Percussion: percussion normal Cardio Jugular venous distension: no JVD Palpation: normal PMI Rate: regular rate Rhythm: regular rhythm Heart sounds: S1 normal heart sound present and S2 normal heart sound present GI Inspection: Yes normal to inspection Palpation (GI): No hepatosplenomegaly present Skin General skin exam: no rashes or lesions noted Extrem General: Yes no clubbing, cyanosis or edema Results AMB Hemoglobin A1c AMB Hemoglobin A1c 7.7 % Last Edit by Heidi Aguilar CMA on 05/10/24 11:47 Results Reviewed Results Reviewed: Laboratory Last Values Hgb A1c (Clinic) 7.7 % (4.0-6.0) H 05/10/24 11:30 Coding Level of Care Code Est Pt Level 3 (69349) Diagnoses Diabetes mellitus with coincident hypertension E11.9; I10 HTN (hypertension) I10 Assessment & Plan Assessment & Plan (1) Diabetes mellitus with coincident hypertension: Code(s): E11.9 - Type 2 diabetes mellitus without complications; I10 - Essential (primary) hypertension Category: Medical Plan: stable; same rx (2) HTN (hypertension): Code(s): I10 - Essential (primary) hypertension Category: Medical Plan: stable; same rx Orders: Orders Glucose Fasting Today R73.9 - Hyperglycemia, unspecified AMB Hemoglobin A1c 05/10/24 E11.9 - Type 2 diabetes mellitus without complications Lipid Panel Today Z13.220 - Encounter for screening for lipoid disorders Hemoglobin A1c Today R73.9 - Hyperglycemia, unspecified
== END 2024-05-10 11:51 | disposition home or self-care (01) ==
PROVIDERS: PCP Internal Medicine; Visit Provider Internal Medicine
DX: E11.9 Type 2 diabetes mellitus without complications (principal); I10 Essential (primary) hypertension

== ENCOUNTER → 2024-05-10 11:26 | Outpatient (BNVA) | payer MEDICARE, SELFPAY | PROVIDERS: PCP Internal Medicine; Visit Provider Internal Medicine | DX: E11.9 Type 2 diabetes mellitus without complications (principal); I10 Essential (primary) hypertension | CPT/HCPCS: 83036; 99212 ==

== ENCOUNTER 2024-05-17 11:16 | Outpatient (AMB) | payer MEDICARE, SELFPAY ==
[2024-05-17 11:30] LABS: Prothrombin Time Whole Bld POC 40.6 sec (11.1-13.5); ~PT, ~INR - Anti Coag Clinic 3.4 (0.9-1.1)
--- NOTE | 2024-05-17 11:30 | MHC.OFFVISCO ---
Intake Intake Visit Reasons: Anticoagulation Allergies environmental allergies Adverse Reaction (Intermediate, Verified 05/17/24 11:18) Itchy Eyes Medication List - Last Reconciled 05/17/24 by Bethany Richardson RN amlodipine 5 mg PO DAILY ascorbate calcium (vitamin C) 500 mg PO DAILY atenolol 25 mg PO DAILY atorvastatin 20 mg PO DAILY blood pressure test kit-large ([employer] Arm BP Monitor kit) As directed blood sugar diagnostic (FreeStyle Lite Strips) USE 1 STRIP TO CHECK BLOOD GLUCOSE ONCE DAILY clopidogrel 75 mg PO DAILY 90 days finasteride 5 mg PO DAILY flaxseed oil 1,000 mg PO DAILY gabapentin 100 mg PO TID glimepiride 2 mg PO BID 90 days glucosamine-chondroitin 250-200 mg (Osteo Bi-Flex) 2 tabs PO TID lisinopril 10 mg PO DAILY metformin 1,000 mg PO BID multivitamin (Daily Multi-Vitamin tablet) 1 tab PO DAILY omega-3 fatty acids (Fish Oil Concentrate) 1,000 mg PO DAILY pioglitazone 30 mg PO DAILY 30 days tamsulosin 0.4 mg PO DAILY warfarin See Protocol 4 mg orally 1-2 per day; Nursing Note INR: 3.4 in therapeutic range 2-3 Medications and supplements reviewed No changes in health, diet, medications, or supplements, Denies any signs and symptoms of bleeding or bruising or clotting. Bleeding, bruising, clotting discussed Nutritional guidance given Dose: 6mg X 5 days and 4mg X 2 days F/U INR: 4 weeks Patient verbalizes understanding of instructions given Anti-Coag Initial Assessment Social Hx Patient Tobacco Use Status: Never used Tobacco Tobacco use type: Cigarette alcohol intake: never Coding Level of Care Code Est Patient Level 1 Diagnoses Current use of anticoagulant therapy Z79.01 Results AMB INR Fingerstick AMB INR Fingerstick 3.4 Last Edit by Bethany Richardson RN on 05/17/24 11:27 interface delay Assessment & Plan Assessment & Plan (1) Current use of anticoagulant therapy: Code(s): Z79.01 - senior living (current) use of anticoagulants Category: Medical
== END 2024-05-17 11:32 | disposition home or self-care (01) ==
LOC: HO.ACS 11:16
PROVIDERS: PCP Internal Medicine; Visit Provider Internal Medicine
DX: Z79.01 Long term (current) use of anticoagulants (principal)

== ENCOUNTER → 2024-05-17 11:16 | Outpatient (BNVA) | payer MEDICARE, SELFPAY | PROVIDERS: PCP Internal Medicine; Visit Provider Internal Medicine | DX: I48.0 Paroxysmal atrial fibrillation (principal); Z79.01 Long term (current) use of anticoagulants; Z51.81 Encounter for therapeutic drug level monitoring | CPT/HCPCS: 85610; 99211 ==

== ENCOUNTER 2024-06-14 11:13 | Outpatient (AMB) | payer MEDICARE, SELFPAY ==
--- OUTSIDE RECORDS SUMMARY | 2024-06-14 11:15 | XMS_ITS ---
Author Organization [facility] Address [address] [place] [address] Care Team Providers Care Cut File Clerk Name Role Phone Brian ROGEL, Nicolás Primary Care Provider Alex Moore [facility] [phone] Encounters Encounter Location Date Provider Diagnosis [facility] [address] [place] [address] 10/26/2023 Alex Lancaster Plan Of Treatment No Information Progress Notes * YOANA Frankie DDOB: (84 yo M)Acc No.[id number]:10/26/2023 Progress Notes Patient:?Arpit VALLESkurt Maloney Provider:?Alex Lancaster DPM :1940???Age:83 Y???Sex:Male Fawad e:10/26/2023 Address:[address] [place], [place] [id number] Pcp:Nicolás Torres MD Subjective: * Chief Complaints: * ??? * Medical History:? Objective: * Vitals:? Assessment: Plan: * Treatment: * Images: * The named appointment provid er may or may not be the originator of this progress note, and it is not deemed complete until electronically signed by the appointment provider. Sign off status: Pending * Provider:?Alex Lancaster DPM Date:? 024 Generated for Fauzia go/Yolette/Meetasmitting on:?06/14/2024 11:15 AM EST
--- OUTSIDE RECORDS SUMMARY | 2024-06-14 11:16 | XMS_ITS ---
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 [address] [place] [address] 09/06/2023 Alex Lancaster Plan Of Treatment No Information Progress Notes * Frankie VALLES DDOB: [birth year] (83 yo M)Acc No.[id number]:09/06/2023 Patient:?Frankie Valles :1940???Age:83 Y???Sex:Male Address:[address] [place] [address] [place] [id number] * true * Date:? Generated for Fauzia go/Yolette/eTransmitting on:?06/14/2024 11:15 AM EST
--- OUTSIDE RECORDS SUMMARY | 2024-06-14 11:16 | XMS_ITS | Patient Health Record ---
[facility] [place] Address [address] [place] [address] Care Team Providers Care Coater Operator Name Role Phone Nicolás Torres MD Primary Care Provider Alex Moore [phone] Reason For Referral No Information Encounters Encounter Location Date Provider Diagnosis [facility] [address] [place] [address] 09/06/2023 Alex Lancaster Plan Of Treatment No Information Insurance Providers Payer Name Payer Address Payer Phone Subscriber Number Group Number Insured Name Patient Relationship to Insured Coverage Start Date Coverage End Date [employer] [address] [facility] [address] [id number] Frankie Valles Self - patient is the insured
[2024-06-14 11:27] LABS: Prothrombin Time Whole Bld POC 38.2 sec (11.1-13.5); ~PT, ~INR - Anti Coag Clinic 3.2 (0.9-1.1)
--- NOTE | 2024-06-14 11:31 | MHC.OFFVISCO ---
Intake Intake Visit Reasons: Anticoagulation Allergies environmental allergies Adverse Reaction (Intermediate, Verified 06/14/24 11:21) Itchy Eyes Medication List - Last Reconciled 06/14/24 by Bethany Kapoor, RN amlodipine 5 mg PO DAILY ascorbate calcium (vitamin C) 500 mg PO DAILY atenolol 25 mg PO DAILY atorvastatin 20 mg PO DAILY blood pressure test kit-large (SureLife Arm BP Monitor kit) As directed blood sugar diagnostic (FreeStyle Lite Strips) USE 1 STRIP TO CHECK BLOOD GLUCOSE ONCE DAILY clopidogrel 75 mg PO DAILY 90 days finasteride 5 mg PO DAILY flaxseed oil 1,000 mg PO DAILY gabapentin 100 mg PO TID glimepiride 2 mg PO BID 90 days glucosamine-chondroitin 250-200 mg (Osteo Bi-Flex) 2 tabs PO TID lisinopril 10 mg PO DAILY metformin 1,000 mg PO BID multivitamin (Daily Multi-Vitamin tablet) 1 tab PO DAILY omega-3 fatty acids (Fish Oil Concentrate) 1,000 mg PO DAILY pioglitazone 30 mg PO DAILY 30 days tamsulosin 0.4 mg PO DAILY warfarin See Protocol 4 mg orally 1-2 per day; Nursing Note Amb to ACS feeling well today Medications and supplements reviewed No changes in health, diet, medications, or supplements, Denies any signs and symptoms of bleeding, bruising, or clotting. Bleeding, bruising, clotting discussed INR: 3.2 just above therapeutic range, last month 3.4 Dose: continue same dosing 4mg x 2 days and 6mg x 5 days add some greens today and then throughout the week F/U INR: 4 weeks Patient verbalizes understanding of instructions given Anti-Coag Initial Assessment Social Hx Patient Tobacco Use Status: Never used Tobacco Tobacco use type: Cigarette alcohol intake: never Coding Level of Care Code Est Patient Level 1 Diagnoses Current use of anticoagulant therapy Z79.01 Time Spent (min) 15 Assessment & Plan Assessment & Plan (1) Current use of anticoagulant therapy: Code(s): Z79.01 - [facility] (current) use of anticoagulants Category: Medical
== END 2024-06-14 11:42 | disposition home or self-care (01) ==
LOC: HO.ACS 11:13
PROVIDERS: PCP Internal Medicine; Visit Provider Internal Medicine
DX: Z79.01 Long term (current) use of anticoagulants (principal)

== ENCOUNTER → 2024-06-14 11:13 | Outpatient (BNVA) | payer MEDICARE, SELFPAY | PROVIDERS: PCP Internal Medicine; Visit Provider Internal Medicine | DX: I48.0 Paroxysmal atrial fibrillation (principal); Z79.01 Long term (current) use of anticoagulants; Z51.81 Encounter for therapeutic drug level monitoring | CPT/HCPCS: 85610; 99211 ==

== ENCOUNTER 2024-07-12 11:20 | Outpatient (AMB) | payer MEDICARE, SELFPAY ==
--- OUTSIDE RECORDS SUMMARY | 2024-07-12 11:26 | XMS_ITS ---
Author Organization [facility] Address [address] [place] [address] Care Team Providers Care Dental Therapist Name Role Phone Brian ROGEL, Nicolás Primary Care Provider UnavailAlex Rendon [phone] REASON FOR VISIT cx EXPERIMENTAL PLASTICS FABRICATOR 10/25 Encounters Encounter Location Date Provider Diagnosis [facility] [address] [place] [address] 09/06/2023 Alex Lancaster Plan Of Treatment No Information Progress Notes * Frankie VALLES DDOB: (83 yo M)Acc No.[id number]:09/06/2023 Patient:?Frankie Valles :1940???Age:83 Y???Sex:Male Address:[address] [place] [address] [place] [address] * true * Date:? Generated for Fauzia go/Yolette/eTransmitting on:?07/12/2024 11:25 AM EST
--- OUTSIDE RECORDS SUMMARY | 2024-07-12 11:26 | XMS_ITS ---
Author Organization [facility] Address [address] [place] [address] Care Team Providers Care Industrial Editor Name Role Phone Brian ROGEL, Nicolás Primary Care Provider Alex Moore [facility] [phone] Encounters Encounter Location Date Provider Diagnosis [facility] [address] [place] [address] 10/26/2023 Alex Lancaster Plan Of Treatment No Information Progress Notes * YOANA Frankie DDOB: (84 yo M)Acc No.[id number]:10/26/2023 Progress Notes Patient:?Frankie VALLES Amara Provider:?Alex Lancaster DPM :1940???Age:83 Y???Sex:Male Fawad e:10/26/2023 Address:[address] [place], [place] [id number] Pcp:Nicolás Torres MD Subjective: * Chief Complaints: [...] DPM Date:? 024 Generated for Fauzia go/Yolette/Meetasmitting on:?07/12/2024 11:25 AM EST
--- OUTSIDE RECORDS SUMMARY | 2024-07-12 11:26 | XMS_ITS | Patient Health Record ---
Author Organization [facility] Address [address] [place] [address] Care Team Providers Care Repairer Evaporator Name Role Phone Nicolás Torres MD Primary Care Provider Alex Moore [phone] Reason For Referral No Information Encounters Encounter Location Date Provider Diagnosis [facility] [address] [place] [address] 09/06/2023 Alex Lancaster Plan Of Treatment No Information Insurance Providers Payer Name Payer Address Payer Phone Subscriber Number Group Number Insured Name Patient Relationship to Insured Coverage Start Date Coverage End Date [employer] [place] Medicare Advantage [address] [facility] [place] [address] [id number] Frankie Valles Self - patient is the insured
[2024-07-12 11:36] LABS: Prothrombin Time Whole Bld POC 37.3 sec (11.1-13.5); ~PT, ~INR - Anti Coag Clinic 3.1 (0.9-1.1)
--- NOTE | 2024-07-12 11:47 | MHC.OFFVISCO ---
Intake Intake Visit Reasons: Anticoagulation Allergies environmental allergies Adverse Reaction (Intermediate, Verified 07/12/24 11:30) Itchy Eyes Medication List - Last Reconciled 07/12/24 by Noreen Tabor RN amlodipine 5 mg PO DAILY ascorbate calcium (vitamin C) 500 mg PO DAILY atenolol 25 mg PO DAILY atorvastatin 20 mg PO DAILY blood pressure test kit-large (SureLife Arm BP Monitor kit) As directed blood sugar diagnostic (FreeStyle Lite Strips) USE 1 STRIP TO CHECK BLOOD GLUCOSE ONCE DAILY clopidogrel 75 mg PO DAILY 90 days finasteride 5 mg PO DAILY flaxseed oil 1,000 mg PO DAILY gabapentin 100 mg PO TID glimepiride 2 mg PO BID 90 days glucosamine-chondroitin 250-200 mg (Osteo Bi-Flex) 2 tabs PO TID lisinopril 10 mg PO DAILY metformin 1,000 mg PO BID multivitamin (Daily Multi-Vitamin tablet) 1 tab PO DAILY omega-3 fatty acids (Fish Oil Concentrate) 1,000 mg PO DAILY pioglitazone 30 mg PO DAILY 30 days tamsulosin 0.4 mg PO DAILY warfarin See Protocol 4 mg orally 1-2 per day; Nursing Note INR: 3.1 OUT OF therapeutic range S/P HOLIDAYS - EATING A LITTLE DIFFERENTLY Medications and supplements reviewed No changes in health, diet, medications, or supplements, Denies any signs and symptoms of bleeding or bruising or clotting. Bleeding, bruising, clotting discussed Nutritional guidance given - MORE COOKED GREENS TO HELP LOWER YOUR INR Dose: 4MG X 2 DAYS/ 6MG X 5 DAYS FOR NOW- IT INR STILL OVER 3.0 THEN DECREASE WEEKLY DOSE F/U INR: 1 MONTH Patient verbalizes understanding of instructions given Anti-Coag Initial Assessment Social Hx Patient Tobacco Use Status: Never used Tobacco Tobacco use type: Cigarette alcohol intake: never Coding Level of Care Code Est Patient Level 1 Diagnoses Current use of anticoagulant therapy Z79.01 Results AMB INR Fingerstick AMB INR Fingerstick 3.1 Last Edit by Noreen Tabor RN on 07/12/24 11:36 MANUAL ENTRY Assessment & Plan Assessment & Plan (1) Current use of anticoagulant therapy: Code(s): Z79.01 - [facility] (current) use of anticoagulants Category: Medical
== END 2024-07-12 11:51 | disposition home or self-care (01) ==
LOC: HO.ACS 11:20
PROVIDERS: PCP Internal Medicine; Visit Provider Internal Medicine
DX: Z79.01 Long term (current) use of anticoagulants (principal)

== ENCOUNTER → 2024-07-12 11:20 | Outpatient (BNVA) | payer MEDICARE, SELFPAY | PROVIDERS: PCP Internal Medicine; Visit Provider Internal Medicine | DX: I48.0 Paroxysmal atrial fibrillation (principal); Z79.01 Long term (current) use of anticoagulants; Z51.81 Encounter for therapeutic drug level monitoring | CPT/HCPCS: 85610; 99211 ==

== ENCOUNTER → 2024-08-09 11:09 | Outpatient (BNVA) | payer MEDICARE, SELFPAY | PROVIDERS: PCP Internal Medicine; Visit Provider Internal Medicine | DX: I48.0 Paroxysmal atrial fibrillation (principal); Z79.01 Long term (current) use of anticoagulants; Z51.81 Encounter for therapeutic drug level monitoring | CPT/HCPCS: 85610; 99211 ==

== ENCOUNTER → 2024-08-09 11:09 | Outpatient (AMB) | payer MEDICARE, SELFPAY ==
[2024-08-09 11:29] LABS: Prothrombin Time Whole Bld POC 38.2 sec (11.1-13.5); ~PT, ~INR - Anti Coag Clinic 3.2 (0.9-1.1)
== END | disposition home or self-care (01) ==
PROVIDERS: PCP Internal Medicine; Visit Provider Internal Medicine

== ENCOUNTER 2024-08-13 07:07 | Outpatient (REF) | payer MEDICARE, SELFPAY ==
[2024-08-13 11:01] LABS: Prostate Specific Antigen 2.26 ng/mL (<0.05-4.0)
== END 2024-08-13 07:08 | disposition home or self-care (01) ==
LOC: HO.HMGCLDS 07:07
PROVIDERS: PCP Internal Medicine; Visit Provider Urology
DX: N40.1 Benign prostatic hyperplasia with lower urinary tract symptoms (principal); Z12.5 Encounter for screening for malignant neoplasm of prostate
CPT/HCPCS: 36415; 84153

== ENCOUNTER 2024-09-04 11:23 | Outpatient (AMB) | payer MEDICARE, SELFPAY ==
--- NOTE | 2024-09-04 11:25 | A.OFFPC_ITS ---
Vital Signs 09/04/24 11:27 Height 5 ft 8 in Weight 194 lb BMI 29.5 BP 130/64 Blood Pressure Location Lt brachial Position Sitting Pulse 56 Pulse Source Pulse Oximeter Temp 97.1 F Temp Source Temporal Artery Scan Pulse Oximetry (%) 97 Oxygen Delivery Method Room Air Intake Visit Reasons: HTN, hyperlipidemia, CAD Intake Note: Patient is here to follow up on HTN, HLD, CAD. Dean Of Graduate Studies Required: No Claims Correspondence Clerk: Present Accompanied by: Spouse Allergies environmental allergies Adverse Reaction (Intermediate, Verified 09/04/24 11:27) Itchy Eyes Medication List - Last Reconciled 09/05/24 by Nicolás Torres MD amlodipine 5 mg PO DAILY ascorbate calcium (vitamin C) 500 mg PO DAILY atenolol 25 mg PO DAILY atorvastatin 20 mg PO DAILY blood pressure test kit-large ([employer] Interactive Arm BP Monitor kit) As directed blood sugar diagnostic (FreeStyle Lite Strips) USE 1 STRIP TO CHECK BLOOD GLUCOSE ONCE DAILY clopidogrel 75 mg PO DAILY 90 days finasteride 5 mg PO DAILY flaxseed oil 1,000 mg PO DAILY gabapentin 100 mg PO TID glimepiride 2 mg PO BID 90 days glucosamine-chondroitin 250-200 mg (Osteo Bi-Flex) 2 tabs PO TID lisinopril 10 mg PO DAILY metformin 1,000 mg PO BID multivitamin (Daily Multi-Vitamin tablet) 1 tab PO DAILY omega-3 fatty acids (Fish Oil Concentrate) 1,000 mg PO DAILY pioglitazone 30 mg PO DAILY 30 days tamsulosin 0.4 mg PO DAILY warfarin See Protocol 4 mg orally 1-2 per day; Tobacco use date assessed: 09/04/24 Fall risk assessment: No Falls in past year Last assessed Fall Risk: 09/04/24 Dental Screening Dental Screen Date: 09/04/24 Did you have a dental visit in the last 12 months?: No Did you have a dental problem in the last 6 months where you did not have access to dental care?: No Was dental information given to patient?: No (Dentures) HPI HTN, hyperlipidemia, CAD HPI Details HTN hyperlipidemia and DM; stable and compliant [facility] Medical History Diabetes mellitus with coincident hypertension Diabetes mellitus H/O coronary angiogram Diabetes Surgical History History of appendectomy History of cholecystectomy History of tonsillectomy History of removal of calculus of renal pelvis through percutaneous nephrostomy Toe amputee Family History Father CAD (coronary artery disease) Past heart attack Mother Diabetes Brother No problems noted. Brother Testicular cancer Brother S/P triple vessel bypass Daughter No problems noted. Daughter No problems noted. Maternal Grandmother Hypertension Social History Housing: House Alcohol intake: never Patient Tobacco Use Status: Never used Tobacco Tobacco use type: Cigarette e-Cigarette/Vaping Use: Never Used Second Hand Smoke Exposure: No service: No Current occupational status: retired Cognitive needs: No Hearing needs: No Vision needs: No Questionnaire PHQ-9 Over the last 2 weeks, how often have you been bothered by any of the following problems? 1. Little interest or pleasure in doing things: not at all 2. Feeling down, depressed, or hopeless: not at all 3. Trouble falling or staying asleep, or sleeping too much: not at all 4. Feeling tired or having little energy: not at all 5. Poor appetite or overeating: not at all 6. Feeling bad about yourself - or that you are a failure or have let yourself or your family down: not at all 7. Trouble concentrating on things, such as reading the newspaper or watching television: not at all 8. Moving or speaking so slowly that other people could have noticed. Or the opposite - being so fidgety or restless that you have been moving around a lot more than usual: not at all 9. Thoughts that you would be better off or of hurting yourself in some way: not at all Total score: 0 Depression Screening Interpretation: Negative Depression Screening Done: Yes Source: Developed by Drs. Juanito Franklin, Yojana Blood, Monty Rehman and colleagues, with an educational saida from [employer]. Thrive Questionnaire Date Thrive assessed: 09/04/24 I am a: Patient What is your living situation today?: I have a steady place to live Within the past 12 months, did the food you bought not last and you didn't have the money to get more?: Never true Within the past 12 months, did you worry whether your food would run out before you got money to buy more?: Never true Do you have trouble paying for medicines?: No Do you have trouble getting transportation to medical appointments?: No Do you have trouble paying your heating and electricity bill?: No Do you have trouble taking care of your child, family member or friend?: No Do you have trouble with day-to-day activities such as bathing, preparing meals, shopping, managing finances, etc.?: No Are you currently unemployed and looking for a job?: No Are you interested in more education?: No Please select the resources that you would like help with: None Currently or been in a relationship where the following occur: No concerns reported THRIVE Score: 0 AUDIT C Alcohol Use Questionnaire (AUDIT-C) 1. How often do you have a drink containing alcohol?: Never Total Score: 0 KALE-7 AMB Questionnaire KALE-7 Date KALE - 7 assessed: 09/04/24 Feeling nervous, anxious, or on edge: 0 = Not at all Not being able to stop or control worryin = Not at all Worrying too much about different things: 0 = Not at all Trouble relaxin = Not at all Being so restless that it is hard to sit still: 0 = Not at all Becoming easily annoyed or irritable: 0 = Not at all Feeling afraid as if something awful might happen: 0 = Not at all Total KALE-7 score (0-4 normal; 5-9 mild; 10-14 moderate; 15-21 severe): 0 Source: Developed by Drs. Juanito Franklin, Yojana Blood, Monty Rehman and colleagues, with an educational saida from [employer]. Review of Systems Const Denies chills, Denies headache(s) and Denies weight loss ENT Denies headache(s) Card Denies chest pain, Denies syncope, Denies irregular heart rhythm and Denies dyspnea Resp Denies chest congestion, Denies cough and Denies dyspnea GI Denies abdominal pain, Denies change in stool character, Denies nausea and Denies vomiting Musc Denies deformity and Denies joint swelling Neuro Denies syncope and Denies headache(s) Physical exam (Primary Care) Vital Signs: Last Vital Signs Temp 97.1 F 09/04/24 11:27 Pulse 56 09/04/24 11:27 BP 130/64 09/04/24 11:27 Pulse Ox 97 09/04/24 11:27 Oxygen Delivery Method Room Air 09/04/24 11:27 BMI result Body Mass Index 29.5 Tobacco/Smoking Status: Tobacco use Status Tobacco use date assessed 09/04/24 09/04/24 11:42 Patient Tobacco Use Status Never used Tobacco 09/04/24 11:42 Tobacco use type Cigarette 09/04/24 11:42 e-Cigarette/Vaping Use Never Used 09/04/24 11:42 PHQ-9: PHQ-9 Score PHQ-9: Total score 0 09/04/24 11:42 Depression Screening Interpretation: Negative Thrive Assessment: Date of Thrive Assessment Date Thrive assessed 09/04/24 09/04/24 11:42 Currently or been in a relationship where the following occur: No concerns reported Const General: cooperative, comfortable, no acute distress and alert Neck Neck: Yes no lymphadenopathy Thyroid: Thyroid normal Resp Effort & Inspection: normal respiratory effort Auscultation: clear to auscultation bilaterally Percussion: percussion normal Cardio Jugular venous distension: no JVD Palpation: normal PMI Rate: regular rate Rhythm: regular rhythm Heart sounds: S1 normal heart sound present and S2 normal heart sound present GI Inspection: Yes normal to inspection Palpation (GI): No hepatosplenomegaly present Skin General skin exam: no rashes or lesions noted Extrem General: Yes no clubbing, cyanosis or edema Coding Level of Care Code Est Pt Level 4 (18972) Diagnoses Hyperlipidemia E78.5 Diabetes mellitus with coincident hypertension E11.9; I10 HTN (hypertension) I10 Assessment & Plan Assessment & Plan (1) Hyperlipidemia: Code(s): E78.5 - Hyperlipidemia, unspecified Category: Medical Plan: stable; same rx (2) Diabetes mellitus with coincident hypertension: Code(s): E11.9 - Type 2 diabetes mellitus without complications; I10 - Essential (primary) hypertension Category: Medical Plan: stable; same rx (3) HTN (hypertension): Code(s): I10 - Essential (primary) hypertension Category: Medical Plan: stable; same rx Medications: Refilled blood sugar diagnostic (FreeStyle Lite Strips) USE 1 STRIP TO CHECK BLOOD GLUCOSE ONCE DAILY 100 ea 0RF glimepiride 2 mg PO BID 180 tabs 0RF 90 days lisinopril 10 mg PO DAILY 90 tabs 0RF warfarin See Protocol 4 mg orally 1-2 per day; 180 tabs 0RF
[2024-09-04 11:27] VITALS: BP 130/64; PULSE 56; TEMP 36.2; O2SAT 97; BMI 29.5
--- OUTSIDE RECORDS SUMMARY | 2024-09-04 13:47 | XMS_ITS ---
Author Organization [facility] Address [address] [place] [address] Care Team Providers Care Surgical Services Director Name Role Phone Brian ROGEL, Nicolás Primary Care Provider UnavailAlex Rendon [phone] REASON FOR VISIT cx RESPIRATORY THERAPIST ASSISTANT 10/25 Encounters Encounter Location Date Provider Diagnosis [facility] [address] [place] [address] 09/06/2023 Alex Lancaster Plan Of Treatment No Information Progress Notes * Frankie VALLES DDOB: [birth year] (83 yo M)Acc No.[id number]:09/06/2023 Patient:?Frankie Valles :1940???Age:83 Y???Sex:Male Address:[address] [place] [address] [place] [address] * true * Date:? Generated for Fauzia go/Yolette/eTransmitting on:?09/04/2024 01:47 PM EST
--- OUTSIDE RECORDS SUMMARY | 2024-09-04 13:47 | XMS_ITS | Clinical Summary ---
Author Organization [facility] Address [address] [place] [address] Care Team Providers Care Technical Sales Advisor Name Role Phone Unavailable Primary Care Provider Unavailabl e Social History Tobacco Use Types Packs/Day Years Used Date Smoking Tobacco: Never Assessed Sex and Gender Information Value Date Recorded Sex Assigned at Not on file Legal Sex Male 4:35 PM EST Gender Identity Not on file Sexual Orientation Not on file Plan of Treatment Health Maintenance Due Date Last Done Comments DTaP,Tdap,and Td Vaccines (1 - Tdap) 02/23/1960 Pneumococcal Vaccine: 50+ Ye ars (1 of 1 - PCV) 1991 Zoster Vaccines (1 of 2) 1991 RSV Immunization Patients 60 + Years Old (1 - 1-dose 75+ series) 02/23/2016 COVID-19 Vaccine ( - 2023-2 5 season) 2024 Influenza Vaccine (#1) 2024 HIB Vaccines Aged Out No longer eligi ble based on patient's age to complete this topic HPV Vaccines Aged Out No longer eligi ble based on patient's age to complete this topic Hepatitis A Vaccines Aged Out No long er eligible based on patient's age to complete this topic Hepatitis B Vaccines Aged Out No long er eligible based on patient's age to complete this topic IPV Vaccines Aged Out No longer eligi ble based on patient's age to complete this topic MMR Vaccines Aged Out No longer eligi ble based on patient's age to complete this topic Meningococcal ACWY Vaccine Aged Out N o longer eligible based on patient's age to complete this topic Meningococcal B Vacine Aged Out No lo nger eligible based on patient's age to complete this topic RSV Immunization Patients Un kathy 20 months Aged Out No longer eligible b ased on patient's age to complete this topic Varicella Vaccines Aged Out No longer eligible based on patient's age to complete this topic
--- OUTSIDE RECORDS SUMMARY | 2024-09-04 13:47 | XMS_ITS | Patient Health Record ---
Author Organization [facility] Address [address] [place] [address] Care Team Providers Care Jewelry Drilling Machine Operator Name Role Phone Nicolás Torres MD Primary Care Provider Alex Moore [phone] Reason For Referral No Information Encounters Encounter Location Date Provider Diagnosis [facility] [address] [place] [address] 09/06/2023 Alex Lancaster Plan Of Treatment No Information Insurance Providers Payer Name Payer Address Payer Phone Subscriber Number Group Number Insured Name Patient Relationship to Insured Coverage Start Date Coverage End Date [employer] [place] Medicare [place]vantage [address] [facility] [address] [place] [id number] Frankie aVlles Self - patient is the insured
--- OUTSIDE RECORDS SUMMARY | 2024-09-04 13:47 | XMS_ITS ---
Author Organization [facility] Address [address] [place] [address] Care Team Providers Care Thermal Surfacing Machine Operator Name Role Phone Brian ROGEL, Nicolás Primary Care Provider Alex Moore [facility] [phone] Encounters Encounter Location Date Provider Diagnosis [facility] [address] [place] [address] 10/26/2023 Alex Lancaster Plan Of Treatment No Information Progress Notes * YOANA Frankie DDOB: (84 yo M)Acc No.[id number]:10/26/2023 Progress Notes Patient:?Arpit VALLESkurt Maloney Provider:?Alex Lancaster DPM :1940???Age:83 Y???Sex:Male Fawad e:10/26/2023 Address:[address] [place], [place] [id number] Pcp:Nicolás Torres MD Subjective: * Chief Complaints: [...] DPM Date:? 024 Generated for Fauzia go/Yolette/Meetasmitting on:?09/04/2024 01:47 PM EST
== END 2024-09-04 11:54 | disposition home or self-care (01) ==
PROVIDERS: PCP Internal Medicine; Visit Provider Internal Medicine
DX: E78.5 Hyperlipidemia, unspecified (principal); E11.9 Type 2 diabetes mellitus without complications; I10 Essential (primary) hypertension

== ENCOUNTER → 2024-09-04 11:23 | Outpatient (BNVA) | payer MEDICARE, SELFPAY | PROVIDERS: PCP Internal Medicine; Visit Provider Internal Medicine | DX: E78.5 Hyperlipidemia, unspecified (principal); E11.9 Type 2 diabetes mellitus without complications; I10 Essential (primary) hypertension | CPT/HCPCS: 99212 ==

== ENCOUNTER 2024-09-06 11:14 | Outpatient (AMB) | payer MEDICARE, SELFPAY ==
[2024-09-06 11:47] LABS: Prothrombin Time Whole Bld POC 40.8 sec (11.1-13.5); ~PT, ~INR - Anti Coag Clinic 3.4 (0.9-1.1)
--- NOTE | 2024-09-06 11:52 | MHC.OFFVISCO ---
Intake Intake Visit Reasons: Anticoagulation Allergies environmental allergies Adverse Reaction (Intermediate, Verified 09/06/24 11:42) Itchy Eyes Medication List - Last Reconciled 09/06/24 by Bethany Richardson RN amlodipine 5 mg PO DAILY ascorbate calcium (vitamin C) 500 mg PO DAILY atenolol 25 mg PO DAILY atorvastatin 20 mg PO DAILY blood pressure test kit-large (SureLife Arm BP Monitor kit) As directed blood sugar diagnostic (FreeStyle Lite Strips) USE 1 STRIP TO CHECK BLOOD GLUCOSE ONCE DAILY clopidogrel 75 mg PO DAILY 90 days finasteride 5 mg PO DAILY flaxseed oil 1,000 mg PO DAILY gabapentin 100 mg PO TID glimepiride 2 mg PO BID 90 days glucosamine-chondroitin 250-200 mg (Osteo Bi-Flex) 2 tabs PO TID lisinopril 10 mg PO DAILY metformin 1,000 mg PO BID multivitamin (Daily Multi-Vitamin tablet) 1 tab PO DAILY omega-3 fatty acids (Fish Oil Concentrate) 1,000 mg PO DAILY pioglitazone 30 mg PO DAILY 30 days tamsulosin 0.4 mg PO DAILY warfarin See Protocol 4 mg orally 1-2 per day; Nursing Note INR: 3.4?out of therapeutic range of 2-3 Medications and supplements reviewed Patient status: well Medications or supplements: no changes Diet: usual diet for pt Denies any signs and symptoms of bleeding or clotting or unusual bruising Bleeding, bruising, clotting discussed Nutritional guidance given: to have a serving of greens today Dose: pt already took today's dose of 4mg so will decrease tomorrow's dose to 2mg (6mg) the usual dose of 6mg X 5 days and 4mg X 2 days (Mon & ) F/U INR Date : 2 weeks?? Patient verbalizing understanding of instructions given. Anti-Coag Initial Assessment Social Hx Patient Tobacco Use Status: Never used Tobacco Tobacco use type: Cigarette alcohol intake: never Coding Level of Care Code Est Patient Level 1 Diagnoses Current use of anticoagulant therapy Z79.01 Results AMB INR Fingerstick AMB INR Fingerstick 3.4 Last Edit by Bethany Richardson RN on 09/06/24 11:46 interface delay Assessment & Plan Assessment & Plan (1) Current use of anticoagulant therapy: Code(s): Z79.01 - [facility] (current) use of anticoagulants Category: Medical
--- OUTSIDE RECORDS SUMMARY | 2024-09-06 13:01 | XMS_ITS | Patient Health Record ---
Author Organization [facility] [place] Address [address] [place] [address] Care Team Providers Care Workforce Management Coordinator Name Role Phone Nicolás Torres MD Primary Care Provider Alex Moore Unavailable [phone] Reason For Referral No Information Plan Of Treatment No Information Insurance Providers Payer Name Payer Address Payer Phone Subscriber Number Group Number Insured Name Patient Relationship to Insured Coverage Start Date Coverage End Date [employer] [place] Medicare Advantage [address] [place] [address] [phone] [id number] Frankie Valles Self - patient is the insured
--- OUTSIDE RECORDS SUMMARY | 2024-09-06 13:01 | XMS_ITS ---
Author Organization [facility] Address [address] [place] [address] Care Team Providers Care Agricultural Research Engineer Name Role Phone Brian ROGEL, Nicolás Primary Care Provider Alex Moore [facility] [phone] Encounters Encounter Location Date Provider Diagnosis [facility] [address] [place] [address] 10/26/2023 Alex Lancaster Plan Of Treatment No Information Progress Notes * YOANA Frankie DDOB: (84 yo M)Acc No.[id number]:10/26/2023 Progress Notes Patient:?Arpit VALLESkurt Maloney Provider:?Alex Lancaster DPM :1940???Age:83 Y???Sex:Male Fawad e:10/26/2023 Address:[address] [place], [place] [address] Pcp:Nicolás Torres MD Subjective: * Chief Complaints: [...] DPM Date:? 024 Generated for Fauzia go/Yolette/Meetasmitting on:?09/06/2024 01:00 PM EST
--- OUTSIDE RECORDS SUMMARY | 2024-09-06 13:01 | XMS_ITS ---
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 Generated for Fauzia go/Yolette/eTransmitting on:?09/06/2024 01:01 PM EST
--- OUTSIDE RECORDS SUMMARY | 2024-09-06 13:01 | XMS_ITS | Clinical Summary ---
Author Organization [facility] ity Address [address] [place] [address] Care Team Providers Care Lotteries Agent Name Role Phone Unavailable Primary Care Provider [...]
== END 2024-09-06 11:57 | disposition home or self-care (01) ==
LOC: HO.ACS 11:14
PROVIDERS: PCP Internal Medicine; Visit Provider Internal Medicine
DX: Z79.01 Long term (current) use of anticoagulants (principal)

== ENCOUNTER → 2024-09-06 11:14 | Outpatient (BNVA) | payer MEDICARE, SELFPAY | PROVIDERS: PCP Internal Medicine; Visit Provider Internal Medicine | DX: I48.0 Paroxysmal atrial fibrillation (principal); Z79.01 Long term (current) use of anticoagulants; Z51.81 Encounter for therapeutic drug level monitoring | CPT/HCPCS: 85610; 99211 ==

== ENCOUNTER 2024-09-20 10:37 | Outpatient (AMB) | payer MEDICARE, SELFPAY ==
[2024-09-20 10:51] LABS: Prothrombin Time Whole Bld POC 32.9 sec (11.1-13.5); ~PT, ~INR - Anti Coag Clinic 2.7 (0.9-1.1)
--- NOTE | 2024-09-20 10:58 | MHC.OFFVISCO ---
Intake Intake Visit Reasons: Anticoagulation Allergies environmental allergies Adverse Reaction (Intermediate, Verified 09/06/24 11:42) Itchy Eyes Medication List - Last Reconciled 09/20/24 by Noreen Tabor RN amlodipine 5 mg PO DAILY ascorbate calcium (vitamin C) 500 mg PO DAILY atenolol 25 mg PO DAILY atorvastatin 20 mg PO DAILY blood pressure test kit-large (SureLife Arm BP Monitor kit) As directed blood sugar diagnostic (FreeStyle Lite Strips) USE 1 STRIP TO CHECK BLOOD GLUCOSE ONCE DAILY clopidogrel 75 mg PO DAILY 90 days finasteride 5 mg PO DAILY flaxseed oil 1,000 mg PO DAILY gabapentin 100 mg PO TID 30 days glimepiride 2 mg PO BID 90 days glucosamine-chondroitin 250-200 mg (Osteo Bi-Flex) 2 tabs PO TID lisinopril 10 mg PO DAILY metformin 1,000 mg PO BID multivitamin (Daily Multi-Vitamin tablet) 1 tab PO DAILY omega-3 fatty acids (Fish Oil Concentrate) 1,000 mg PO DAILY pioglitazone 30 mg PO DAILY 30 days tamsulosin 0.4 mg PO DAILY warfarin See Protocol 4 mg orally 1-2 per day; Nursing Note INR: 2.7 in therapeutic range Medications and supplements reviewed No changes in health, diet, medications, or supplements, Denies any signs and symptoms of bleeding or bruising or clotting. Bleeding, bruising, clotting discussed Nutritional guidance given - REVIEW FOOD LIST WEEKLY - EAT A MIX OF FRUITS AND VEGETABLES Dose: PREVIOUS INRs have been elevated- dose decreased previous visit / decrease weekly dose 4mg x 3 days/ 6mg x 4 days F/U INR: 4 weeks per pt Patient verbalizes understanding of instructions given Anti-Coag Initial Assessment Social Hx Patient Tobacco Use Status: Never used Tobacco Tobacco use type: Cigarette alcohol intake: never Coding Level of Care Code Est Patient Level 1 Diagnoses Current use of anticoagulant therapy Z79.01 Results AMB INR Fingerstick AMB INR Fingerstick 2.7 Last Edit by Noreen Tabor RN on 09/20/24 10:54 MANUAL ENTRY Assessment & Plan Assessment & Plan (1) Current use of anticoagulant therapy: Code(s): Z79.01 - emt intermediate (current) use of anticoagulants Category: Medical
--- OUTSIDE RECORDS SUMMARY | 2024-09-20 12:42 | XMS_ITS ---
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 Generated for Fauzia go/Yolette/eTransmitting on:?09/20/2024 12:41 PM EDT
--- OUTSIDE RECORDS SUMMARY | 2024-09-20 12:42 | XMS_ITS ---
Author Organization [facility] Address [address] [place] [address] Care Team Providers Care Office Agent Name Role Phone Brian ROGEL, Nicolás Primary Care Provider Alex Moore [phone] Encounters Encounter Location Date Provider Diagnosis [facility] [address] [place] [address] 10/26/2023 Alex Lancaster Plan Of Treatment No Information Progress Notes * YOANA Frankie DDOB: (84 yo M)Acc No.[id number]:10/26/2023 Progress Notes Patient:?Arpit VALLESkurt Maloney Provider:?Alex Lancaster DPM :1940???Age:83 Y???Sex:Male Fawad e:10/26/2023 Address:[address] [place], [place] [id number] Pcp:Nicolás Torres MD Subjective: * Chief Complaints: [...] Lancaster DPM Date:? 024 Generated for Fauzia go/Yolette/eTransmitting on:?09/20/2024 12:41 PM EDT
--- OUTSIDE RECORDS SUMMARY | 2024-09-20 12:42 | XMS_ITS | Clinical Summary ---
Author Organization [facility] ity Address [address] [place] [address] Care Team Providers Care Outpatient Interviewing Clerk Name Role Phone Unavailable Primary Care Provider [...]
--- OUTSIDE RECORDS SUMMARY | 2024-09-20 12:42 | XMS_ITS | Patient Health Record ---
Author Organization [facility] [place] Address [address] [place] [address] Care Team Providers Care Solderer Dipper Name Role Phone Nicolás Torres MD Primary Care Provider Alex Moore Unavailable [phone] Reason For Referral No Information Plan Of Treatment No Information Insurance Providers Payer Name Payer Address Payer Phone Subscriber Number Group Number Insured Name Patient Relationship to Insured Coverage Start Date Coverage End Date [employer] [place] Medicare Advantage [address] [place] [address] [phone] [id number] Frankie Valles Self - patient is the insured
== END 2024-09-20 11:01 | disposition home or self-care (01) ==
LOC: HO.ACS 10:37
PROVIDERS: PCP Physician Assistant; Visit Provider Internal Medicine Medical Oncology
DX: Z79.01 Long term (current) use of anticoagulants (principal)

== ENCOUNTER → 2024-09-20 10:37 | Outpatient (BNVA) | payer MEDICARE, SELFPAY | PROVIDERS: PCP Physician Assistant; Visit Provider Internal Medicine Medical Oncology | DX: I48.0 Paroxysmal atrial fibrillation (principal); Z79.01 Long term (current) use of anticoagulants; Z51.81 Encounter for therapeutic drug level monitoring | CPT/HCPCS: 85610; 99211 ==

== ENCOUNTER 2024-10-08 08:35 | Outpatient (REF) | payer MEDICARE, SELFPAY ==
--- NOTE | ~2024-10-08 | US_ITS ---
EXAMINATION: Noninvasive assessment of the bilateral lower extremities with ARTERIAL DUPLEX, ANKLE BRACHIAL INDICES (ABIs), and PULSE VOLUME RECORDINGS (PVRs). CLINICAL INFORMATION: Peripheral vascular disease, unspecified. TECHNIQUE: Duplex Doppler techniques with waveform analysis and measurement of velocities in the bilateral common femoral, profunda femoris, superficial femoral, popliteal and tibial arteries were performed. Additionally, ankle pulse volume recordings, ankle pressure measurements and ankle brachial indices were obtained of the lower extremity arterial system bilaterally. The study was performed only at rest. COMPARISON: None FINDINGS: DIRECT DUPLEX DOPPLER FINDINGS: RIGHT LEG: Common femoral artery: 100 cm/s, phasicity: Triphasic. Profunda femoris artery: 65 cm/s, phasicity: Triphasic. Superficial femoral artery (proximal): 75 cm/s, phasicity: Triphasic. Superficial femoral artery (mid): 107 cm/s, phasicity: Triphasic. Superficial femoral artery (distal): 87 cm/s, phasicity: Triphasic. Popliteal artery: 85 cm/s, phasicity: Triphasic. Posterior tibial artery: 124 cm/s, phasicity: Monophasic. Spectral broadening. Peroneal artery: Not identified. Anterior tibial artery: 14 cm/s, phasicity: Monophasic. Spectral broadening. Dorsalis pedis artery: 8 cm/s, phasicity:Monophasic. Spectral broadening. LEFT LEG: Common femoral artery: 105 cm/s, phasicity: Triphasic. Profunda femoris artery: 70 cm/s, phasicity: Triphasic. Superficial femoral artery (proximal): 84 cm/s, phasicity: Triphasic. Superficial femoral artery (mid): 123 cm/s, phasicity: Triphasic. Superficial femoral artery (distal): 98 cm/s, phasicity: Triphasic. Popliteal artery: 105 cm/s, phasicity: Triphasic. Posterior tibial artery: 64 cm/s, phasicity: Monophasic. Spectral broadening. Peroneal artery: Not identified. Anterior tibial artery: 45 cm/s, phasicity: Monophasic. Spectral broadening. Dorsalis pedis artery: 23 cm/s, phasicity: Monophasic. Spectral broadening. There is a 2.9 cm lobulated anechoic lesion in the popliteal fossa without flow on color Doppler interrogation. BRACHIAL PRESSURES: Right: 150 Left: 143 ANKLE PRESSURES: Right: PT 200, DP 200 Left: PT 200, DP 200 ANKLE-BRACHIAL INDEX: Right: 1.33 Left: 1.33 ANKLE PVR WAVEFORMS: Right: Abnormal. Left: Abnormal. US/US arterial duplex BI w/ CLIFFORD IMPRESSION: Right leg: Severe inflow disease from the anterior tibialis artery to the dorsalis pedis artery. Left leg: Severe inflow disease from the anterior tibialis artery to dorsalis base artery. CLIFFORD Reference: - >1.4 = calcified vessels - 0.9 - 1.4 = normal - no significant arterial disease - 0.7 - 0.89 = mild peripheral arterial disease - 0.51 - 0.69 = moderate peripheral arterial disease - d 0.50 = severe peripheral arterial disease - < .30 = critical arterial disease Electronically signed by: Hany Tripp MD 10/08/2024 12:15 PM EDT
--- OUTSIDE RECORDS SUMMARY | 2024-10-08 08:56 | XMS_ITS ---
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 Generated for Fauzia go/Yolette/eTransmitting on:?10/08/2024 08:55 AM EDT
--- OUTSIDE RECORDS SUMMARY | 2024-10-08 08:56 | XMS_ITS ---
Author Organization [facility] Address [address] [place] [address] Care Team Providers Care Manager Sound Name Role Phone Brian ROGEL, Nicolás Primary Care Provider Alex Moore [phone] Encounters Encounter Location Date Provider Diagnosis [facility] [address] [place] [address] 10/26/2023 Alex Lancaster Plan Of Treatment No Information Progress Notes * YOANA Frankie DDOB: (84 yo M)Acc No.[id number]:10/26/2023 Progress Notes Patient:?Frankie VALLES Amara Provider:?Alex Lancaster DPM :1940???Age:83 Y???Sex:Male Fawad e:10/26/2023 Address:[address] [place], [place] [id number] Pcp:Nicolás Torres MD Subjective: * Chief Complaints: [...] DPM Date:? 024 Generated for Fauzia go/Yolette/eTransmitting on:?10/08/2024 08:55 AM EDT
--- OUTSIDE RECORDS SUMMARY | 2024-10-08 08:56 | XMS_ITS | Patient Health Record ---
Author Organization [facility] [place] Address [address] [place] [address] Care Team Providers Care Tank Truck Milk Receiver Name Role Phone Nicolás Torres MD Primary Care Provider Alex Moore Unavailable [phone] Reason For Referral No Information Plan Of Treatment No Information Insurance Providers Payer Name Payer Address Payer Phone Subscriber Number Group Number Insured Name Patient Relationship to Insured Coverage Start Date Coverage End Date [employer] [place] Medicare Advantage [address] [place] [id number] Frankie Valles Self - patient is the insured
--- OUTSIDE RECORDS SUMMARY | 2024-10-08 08:56 | XMS_ITS | Clinical Summary ---
Author Organization [facility] ity Address [address] [place] [address] Care Team Providers Care Building Admin Name Role Phone Unavailable Primary Care Provider [...] Vaccines (1 of 2) 1991 RSV Immunization Adult Patie nts (1 - 1-dose 75+ series) 02/23/2016 COVID-19 Vaccine ( - 2023-2 5 season) 2024 Influenza Vaccine (Season Ended) 2025 HIB Vaccines Aged Out No longer eligi [...] age to complete this topic Meningococcal B Vaccine Aged Out No l onger eligible based on patient's age to complete this topic RSV Immunization Patients Un kathy 20 months Aged Out No longer eligible b ased on patient's age to complete this topic Varicella Vaccines Aged Out No longer eligible based on patient's age to complete this topic
== END 2024-10-08 08:36 | disposition home or self-care (01) ==
LOC: HO.US 08:35
PROVIDERS: PCP Physician Assistant; Visit Provider Surgery Vascular Surgery
DX: I73.9 Peripheral vascular disease, unspecified (principal)
CPT/HCPCS: 93922; 93925

== ENCOUNTER → 2024-10-08 08:38 | Outpatient (BNV) | payer MEDICARE, SELFPAY | PROVIDERS: PCP Physician Assistant; Visit Provider Radiology Diagnostic Radiology | DX: I73.9 Peripheral vascular disease, unspecified (principal) | CPT/HCPCS: 93922; 93925 ==

== ENCOUNTER 2024-10-18 11:13 | Outpatient (AMB) | payer MEDICARE, SELFPAY ==
[2024-10-18 11:22] LABS: Prothrombin Time Whole Bld POC 34.5 sec (11.1-13.5); ~PT, ~INR - Anti Coag Clinic 2.9 (0.9-1.1)
--- NOTE | 2024-10-18 11:28 | MHC.OFFVISCO ---
Intake Intake Visit Reasons: Anticoagulation Allergies environmental allergies Adverse Reaction (Intermediate, Verified 10/18/24 11:17) Itchy Eyes Medication List - Last Reconciled 10/18/24 by Noreen Tabor RN amlodipine 5 mg PO DAILY ascorbate calcium (vitamin C) 500 mg PO DAILY atenolol 25 mg PO DAILY atorvastatin 20 mg PO DAILY blood pressure test kit-large (SureLife Arm BP Monitor kit) As directed blood sugar diagnostic (FreeStyle Lite Strips) USE 1 STRIP TO CHECK BLOOD GLUCOSE ONCE DAILY clopidogrel 75 mg PO DAILY 90 days finasteride 5 mg PO DAILY flaxseed oil 1,000 mg PO DAILY gabapentin 100 mg PO TID 30 days glimepiride 2 mg PO BID 90 days glucosamine-chondroitin 250-200 mg (Osteo Bi-Flex) 2 tabs PO TID lisinopril 10 mg PO DAILY metformin 1,000 mg PO BID multivitamin (Daily Multi-Vitamin tablet) 1 tab PO DAILY omega-3 fatty acids (Fish Oil Concentrate) 1,000 mg PO DAILY pioglitazone 30 mg PO DAILY 30 days tamsulosin 0.4 mg PO DAILY warfarin See Protocol 4 mg orally 1-2 per day; Nursing Note INR: 2.9 in therapeutic range Medications and supplements reviewed No changes in health, diet, medications, or supplements, Denies any signs and symptoms of bleeding or bruising or clotting. Bleeding, bruising, clotting discussed Nutritional guidance given Dose: 4MG X 3 DAYS/ 6MG X 4 DAYS F/U INR: 1 MONTH Patient verbalizes understanding of instructions given Anti-Coag Initial Assessment Social Hx Patient Tobacco Use Status: Never used Tobacco Tobacco use type: Cigarette alcohol intake: never Coding Level of Care Code Est Patient Level 1 Diagnoses Current use of anticoagulant therapy Z79.01 Assessment & Plan Assessment & Plan (1) Current use of anticoagulant therapy: Code(s): Z79.01 - longterm (current) use of anticoagulants Category: Medical
--- OUTSIDE RECORDS SUMMARY | 2024-10-18 12:18 | XMS_ITS | Patient Health Record ---
Author Organization [facility] [place] Address [address] [place] [address] Care Team Providers Care Studio Model Name Role Phone Nicolás Torres MD Primary Care Provider Alex Moore Unavailable [phone] Reason For Referral No Information Plan Of Treatment No Information Insurance Providers Payer Name Payer Address Payer Phone Subscriber Number Group Number Insured Name Patient Relationship to Insured Coverage Start Date Coverage End Date [employer] [place] Medicare Advantage [address] [place] [address] [phone] [id number] Frankie Valles Self - patient is the insured
--- OUTSIDE RECORDS SUMMARY | 2024-10-18 12:18 | XMS_ITS | Clinical Summary ---
Author Organization [facility] ity Address [address] [place] [address] Care Team Providers Care Commercial Loan Officer Name Role Phone Unavailable Primary Care Provider [...]
--- OUTSIDE RECORDS SUMMARY | 2024-10-18 12:19 | XMS_ITS ---
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 Generated for Fauzia go/Yolette/eTransmitting on:?10/18/2024 12:18 PM EDT
--- OUTSIDE RECORDS SUMMARY | 2024-10-18 12:19 | XMS_ITS ---
Author Organization [facility] Address [address] [place] [address] Care Team Providers Care Fly Tier Name Role Phone Brian ROGEL, Nicolás Primary Care Provider Alex Moore [phone] Encounters Encounter Location Date Provider Diagnosis [facility] [address] [place] [address] 10/26/2023 Alex Lancaster Plan Of Treatment No Information Progress Notes * YOANA Frankie DDOB: (84 yo M)Acc No.[id number]:10/26/2023 Progress Notes Patient:?Frankie VALLES Amara Provider:?Alex Lancaster DPM :1940???Age:83 Y???Sex:Male Fawad e:10/26/2023 Address:[address] [place], [place] [address] Pcp:Nicolás Torres MD Subjective: * Chief Complaints: [...] DPM Date:? 024 Generated for Fauzia go/Yolette/eTransmitting on:?10/18/2024 12:18 PM EDT
== END 2024-10-18 11:31 | disposition home or self-care (01) ==
LOC: HO.ACS 11:13
PROVIDERS: PCP Physician Assistant; Visit Provider Internal Medicine Medical Oncology
DX: Z79.01 Long term (current) use of anticoagulants (principal)

== ENCOUNTER → 2024-10-18 11:13 | Outpatient (BNVA) | payer MEDICARE, SELFPAY | PROVIDERS: PCP Physician Assistant; Visit Provider Internal Medicine Medical Oncology | DX: I48.0 Paroxysmal atrial fibrillation (principal); Z79.01 Long term (current) use of anticoagulants; Z51.81 Encounter for therapeutic drug level monitoring | CPT/HCPCS: 85610; 99211 ==

== ENCOUNTER 2024-10-24 09:53 | Outpatient (AMB) | payer MEDICARE, SELFPAY ==
--- NOTE | 2024-10-24 10:04 | MHC.OFFVIS ---
Vital Signs 10/24/24 10:07 Height 5 ft 8 in Weight 194 lb BMI 29.5 Intake Visit Reasons: 1y follow up s/p Arterial US 10/08/24 Intake Note: 1 yr follow up arterial US 10/08/24. Pt states no complaints. No cramping or weakness. Orthotic/Prosthetic Clinician Required: No Accompanied by: Spouse Allergies environmental allergies Adverse Reaction (Intermediate, Verified 10/24/24 10:10) Itchy Eyes HPI HPI 1y follow up s/p Arterial US 10/08/24: Details: The patient is an 84-year-old male presenting with a routine arterial surveillance follow-up. His medical history includes peripheral artery disease, with no reported new symptoms of leg discomfort or limitations in ambulation. The patient continues to engage in daily activities without difficulty. Management of peripheral artery disease involves consistent monitoring via imaging, such as the recent ultrasound showing stable results compared to the previous year's findings. He has undergone previous left lower extremity endovascular intervention a proximally 10 years ago. In addition in April of 2016 he underwent left great toe amp by Dr. Palomino. He now presents for routine arterial surveillance [facility] Medical History Diabetes mellitus with coincident hypertension Diabetes mellitus H/O coronary angiogram Diabetes Surgical History History of appendectomy History of cholecystectomy History of tonsillectomy History of removal of calculus of renal pelvis through percutaneous nephrostomy Toe amputee Family History Father CAD (coronary artery disease) Past heart attack Mother Diabetes Brother No problems noted. Brother Testicular cancer Brother S/P triple vessel bypass Daughter No problems noted. Daughter No problems noted. Maternal Grandmother Hypertension Social History Housing: House Alcohol intake: never Patient Tobacco Use Status: Never used Tobacco Tobacco use type: Cigarette e-Cigarette/Vaping Use: Never Used Second Hand Smoke Exposure: No service: No Current occupational status: retired Cognitive needs: No Hearing needs: No Vision needs: No Review of Systems Const All systems reviewed & are unremarkable except as noted in HPI and below Reports no additional complaints ENT Reports Normal hearing present Card Denies chest pain, Denies chest pain at rest, Denies chest pain with activity and Denies pedal edema Resp Denies cough GI Denies abdominal pain Musc Denies abnormal gait, Denies muscle cramps and Denies radiating pain into limb Skin/Breast Denies skin ulcer and Denies wounds Neuro Reports Normal hearing present and Denies abnormal gait Psych Reports no additional complaints Physical Exam Vital Signs: BMI result Body Mass Index 29.5 Const General: cooperative, healthy appearing and comfortable Orientation/consciousness: oriented to person, oriented to place and oriented to time HEENT Head: Yes normal to inspection Neck Neck: Yes normal visual inspection Carotids: no bruits Chest Chest palpation & inspection: normal inspection of the chest Resp Effort & Inspection: normal respiratory effort and able to speak in complete sentences Auscultation: clear to auscultation bilaterally, no crackles, no rales, no rhonchi and no wheezes Cardio Other: Bilateral DP signals Rate: regular rate Rhythm: regular rhythm Heart sounds: S1 normal heart sound present and S2 normal heart sound present Bruits: no carotid bruits Peripheral pulses: Peripheral pulses 2+ throughout GI Inspection: Yes normal to inspection Skin Wounds: no wounds Hair: normal Neuro General: oriented to person, oriented to place and oriented to time Cranial nerves: Yes CN's II-XII intact bilaterally and Yes Normal hearing present Cognition (Neuro): normal cognition Motor exam (neuro): 5/5 motor strength present throughout Extrem Other: venous exam: No significant superficial varicosities or spider telangiectasias, minimal edema General: No clubbing, No cyanosis and No edema Psych Appearance: grossly normal Mental Status: mental status grossly normal Speech and movement: Normal speech and movement present Results Reviewed Results Reviewed: Noninvasive arterial testing dated 10/08/2024 demonstrates CLIFFORD on the right of 1.3 and on the left of 1.3 written report and images were reviewed. Assessment & Plan Assessment & Plan (1) PAD (peripheral artery disease): Code(s): I73.9 - Peripheral vascular disease, unspecified Category: Medical Plan: In short patient has stable claudication. I did review the pathophysiology of peripheral vascular disease with the patient. In addition we did discuss routine conservative measures including a healthy diet and the importance of exercise and ambulation. We did discuss risk factor modification. The patient will continue to to follow-up with surveillance follow-up in approximately 1 year. Thank you for allowing us to participate in this patient's care. If there are any questions or concerns please do not hesitate to contact us. Plan Patient was informed and verbally consented to the use of an ambient scribe for clinic note documentation during this visit. Orders: Orders US arterial duplex LE BI 1 Year I73.9 - Peripheral vascular disease, unspecified Patient Instructions: - Continue taking prescribed blood thinners as directed. - Maintain regular physical activity. - Follow up with scheduled yearly visits for arterial ultrasound monitoring. - Monitor and report any new symptoms such as leg pain or changes in mobility. - Return sooner if new or worsening symptoms occur. Coding Level of Care Code Est Pt Level 4 (92786) Complex EM visit Add On G2211 Diagnoses PAD (peripheral artery disease) I73.9
[2024-10-24 10:07] VITALS: BMI 29.5
--- OUTSIDE RECORDS SUMMARY | 2024-10-24 11:09 | XMS_ITS ---
Author Organization 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 Generated for Fauzia go/Yolette/eTransmitting on:?10/24/2024 11:09 AM EDT
--- OUTSIDE RECORDS SUMMARY | 2024-10-24 11:09 | XMS_ITS | Clinical Summary ---
Author Organization [facility] ity Address [address] [place] [address] Care Team Providers Care Student Development Advisor Name Role Phone Unavailable Primary Care [...]
--- OUTSIDE RECORDS SUMMARY | 2024-10-24 11:09 | XMS_ITS ---
Author Organization [facility] Address [address] [place] [address] Care Team Providers Care Power Shovel Engineer Name Role Phone Brian ROGEL, Nicolás Primary Care Provider Alex Moore [phone] Encounters Encounter Location Date Provider Diagnosis [facility] [address] [place] [address] 10/26/2023 Alex Lancaster Plan Of Treatment No Information Progress Notes * YOANA Frankie DDOB: (84 yo M)Acc No.[id number]:10/26/2023 Progress Notes Patient:?Arpit VALLESkurt Maloney Provider:?Alex Lancaster DPM :1940???Age:83 Y???Sex:Male Fawad e:10/26/2023 Address:[address] [place], [place] [address] Pcp:Nicolás Torres MD Subjective: * Chief Complaints: [...] DPM Date:? 024 Generated for Fauzia go/Yolette/eTransmitting on:?10/24/2024 11:09 AM EDT
--- OUTSIDE RECORDS SUMMARY | 2024-10-24 11:09 | XMS_ITS | Patient Health Record ---
Author Organization [facility] [place] Address [address] [place] [address] Care Team Providers Care Nursery Teacher Name Role Phone Nicolás Torres MD Primary Care Provider Alex Moore Unavailable [phone] Reason For Referral No Information Plan Of Treatment No Information Insurance Providers Payer Name Payer Address Payer Phone Subscriber Number Group Number Insured Name Patient Relationship to Insured Coverage Start Date Coverage End Date [employer] [place] Medicare Advantage [address] [facility] [place] [id number] Frankie Valles Self - patient is the insured
== END 2024-10-24 10:28 | disposition home or self-care (01) ==
LOC: HO.HVS 09:54
PROVIDERS: PCP Physician Assistant; Visit Provider Surgery Vascular Surgery
DX: I73.9 Peripheral vascular disease, unspecified (principal)
CPT/HCPCS: 99214; G2211

== ENCOUNTER → 2024-10-24 09:53 | Outpatient (BNVA) | payer MEDICARE, SELFPAY | PROVIDERS: PCP Physician Assistant; Visit Provider Surgery Vascular Surgery | DX: I73.9 Peripheral vascular disease, unspecified (principal) | CPT/HCPCS: 99212 ==

== ENCOUNTER 2024-11-22 11:18 | Outpatient (AMB) | payer MEDICARE, SELFPAY ==
--- OUTSIDE RECORDS SUMMARY | 2024-11-22 11:21 | XMS_ITS | Patient Health Record ---
Author Organization [facility] Dylon Marialey Address [address] [place] [address] Care Team Providers Care Export Coordinator Name Role Phone Nicolás Torres MD Primary Care Provider Alex Moore Unavailable [phone] Reason For Referral No Information Plan Of Treatment No Information Insurance Providers Payer Name Payer Address Payer Phone Subscriber Number Group Number Insured Name Patient Relationship to Insured Coverage Start Date Coverage End Date [employer] [place] Medicare Advantage [address] [place] [address] [id number] Frankie Valles Self - patient is the insured
[2024-11-22 11:34] LABS: Prothrombin Time Whole Bld POC 29.5 sec (11.1-13.5); ~PT, ~INR - Anti Coag Clinic 2.5 (0.9-1.1)
--- NOTE | 2024-11-22 11:37 | MHC.OFFVISCO ---
Intake Intake Visit Reasons: Anticoagulation Allergies environmental allergies Adverse Reaction (Intermediate, Verified 11/22/24 11:29) Itchy Eyes Medication List - Last Reconciled 11/22/24 by Bethany Richardson, RN amlodipine 5 mg PO DAILY ascorbate calcium (vitamin C) 500 mg PO DAILY atenolol 25 mg PO DAILY atorvastatin 20 mg PO DAILY blood pressure test kit-large (SureLife Arm BP Monitor kit) As directed blood sugar diagnostic (FreeStyle Lite Strips) USE 1 STRIP TO CHECK BLOOD GLUCOSE ONCE DAILY clopidogrel 75 mg PO DAILY 90 days finasteride 5 mg PO DAILY flaxseed oil 1,000 mg PO DAILY gabapentin 100 mg PO TID 30 days glimepiride 2 mg PO BID 90 days glucosamine-chondroitin 250-200 mg (Osteo Bi-Flex) 2 tabs PO TID lisinopril 10 mg PO DAILY metformin 1,000 mg PO BID multivitamin (Daily Multi-Vitamin tablet) 1 tab PO DAILY omega-3 fatty acids (Fish Oil Concentrate) 1,000 mg PO DAILY pioglitazone 30 mg PO DAILY 30 days tamsulosin 0.4 mg PO DAILY warfarin 4 - 8 mg (1 - 2 x 4 mg) PO DAILY Nursing Note INR: 2.5 in therapeutic range of 2-3 Medications and supplements reviewed No changes in health, diet, medications, or supplements, Denies any signs and symptoms of bleeding or bruising or clotting. Bleeding, bruising, clotting discussed Nutritional guidance given Dose: keep same dose of 6mg X4 days and 4mg X 3 days (M/W/F) F/U INR: 12/20/24 Patient verbalizes understanding of instructions given Anti-Coag Initial Assessment Social Hx Patient Tobacco Use Status: Never used Tobacco Tobacco use type: Cigarette alcohol intake: never Coding Level of Care Code Est Patient Level 1 Diagnoses Current use of anticoagulant therapy Z79.01 Results AMB INR Fingerstick AMB INR Fingerstick 2.5 Last Edit by Bethany Richardson RN on 11/22/24 11:34 interface delay Assessment & Plan Assessment & Plan (1) Current use of anticoagulant therapy: Code(s): Z79.01 - FPC (current) use of anticoagulants Category: Medical
== END 2024-11-22 11:39 | disposition home or self-care (01) ==
LOC: HO.ACS 11:18
PROVIDERS: PCP Physician Assistant; Visit Provider Internal Medicine Medical Oncology
DX: Z79.01 Long term (current) use of anticoagulants (principal)

== ENCOUNTER → 2024-11-22 11:18 | Outpatient (BNVA) | payer MEDICARE, SELFPAY | PROVIDERS: PCP Physician Assistant; Visit Provider Internal Medicine Medical Oncology | DX: I48.0 Paroxysmal atrial fibrillation (principal); Z79.01 Long term (current) use of anticoagulants; Z51.81 Encounter for therapeutic drug level monitoring | CPT/HCPCS: 85610; 99211 ==

== ENCOUNTER 2024-12-05 11:18 | Outpatient (AMB) | payer MEDICARE, SELFPAY ==
[2024-12-05 11:22] VITALS: BP 120/56; PULSE 51; RESP 18; TEMP 36.2; O2SAT 97
--- NOTE | 2024-12-05 11:22 | MHC.PC.OV ---
Vital Signs 12/05/24 11:22 Height 5 ft 8 in Weight 197 lb BMI 30.0 BP 120/56 L Blood Pressure Location Lt brachial Position Sitting Respiration 18 Pulse 51 Pulse Source Pulse Oximeter Temp 97.1 F Temp Source Temporal Artery Scan Pulse Oximetry (%) 97 Oxygen Delivery Method Room Air Intake Visit Reasons: PE- FERNANDO Lainer- see comments Gold Leaf Printer Required: No Accompanied by: Self / Same As Patient Allergies environmental allergies Adverse Reaction (Intermediate, Verified 12/05/24 11:47) Itchy Eyes Medication List - Last Reconciled 12/05/24 by Vinod Mary PA-C ascorbate calcium (vitamin C) 500 mg PO DAILY blood pressure test kit-large (Portapure Arm BP Monitor kit) As directed blood sugar diagnostic (FreeStyle Lite Strips) USE 1 STRIP TO CHECK BLOOD GLUCOSE ONCE DAILY clopidogrel 75 mg PO DAILY 90 days flaxseed oil 1,000 mg PO DAILY gabapentin 100 mg PO TID 30 days glimepiride 2 mg PO BID 90 days glucosamine-chondroitin 250-200 mg (Osteo Bi-Flex) 2 tabs PO TID lisinopril 10 mg PO DAILY metformin 1,000 mg PO BID multivitamin (Daily Multi-Vitamin tablet) 1 tab PO DAILY omega-3 fatty acids (Fish Oil Concentrate) 1,000 mg PO DAILY pioglitazone 30 mg PO DAILY 30 days tamsulosin 0.4 mg PO DAILY warfarin 4 - 8 mg See Protocol PO DAILY Tobacco use date assessed: 12/05/24 Fall risk assessment: No Falls in past year Last assessed Fall Risk: 12/05/24 Dental Screening Dental Screen Date: 12/05/24 Did you have a dental visit in the last 12 months?: No Did you have a dental problem in the last 6 months where you did not have access to dental care?: No Was dental information given to patient?: No HPI PE- FERNANDO Lainer- see comments HPI Details Patient is an 84-year-old male here today for a transfer of care visit. Patient has a past medical history significant for paroxysmal AFib, hypertension, peripheral artery disease, BPH. .. AFib: Patient is followed by [facility]. Patient anticoagulated with warfarin. .. Type 2 diabetes: Continues on metformin, pioglitazone for the control of his type 2 diabetes. His diabetes seems to be suboptimally controlled with A1c is 7.5. . Hyperlipidemia: He has stopped using atorvastatin 20 mg, though unclear reason. Will recheck lipid panel to ensure stable with goal LDL to be below 100 PFSH Medical History Diabetes mellitus with coincident hypertension Diabetes mellitus H/O coronary angiogram Diabetes Surgical History History of appendectomy History of cholecystectomy History of tonsillectomy History of removal of calculus of renal pelvis through percutaneous nephrostomy Toe amputee Family History Father CAD (coronary artery disease) Past heart attack Mother Diabetes Brother No problems noted. Brother Testicular cancer Brother S/P triple vessel bypass Daughter No problems noted. Daughter No problems noted. Maternal Grandmother Hypertension Social History Housing: House Alcohol intake: never Patient Tobacco Use Status: Never used Tobacco Tobacco use type: Cigarette e-Cigarette/Vaping Use: Never Used Second Hand Smoke Exposure: No service: No Current occupational status: retired Cognitive needs: No Hearing needs: No Vision needs: No Questionnaire Thrive Questionnaire Date Thrive assessed: 12/05/24 I am a: Patient What is your living situation today?: I have a steady place to live Within the past 12 months, did the food you bought not last and you didn't have the money to get more?: Never true Within the past 12 months, did you worry whether your food would run out before you got money to buy more?: Never true Do you have trouble paying for medicines?: No Do you have trouble getting transportation to medical appointments?: No Do you have trouble paying your heating and electricity bill?: No Do you have trouble taking care of your child, family member or friend?: No Do you have trouble with day-to-day activities such as bathing, preparing meals, shopping, managing finances, etc.?: No Are you currently unemployed and looking for a job?: No Are you interested in more education?: No Please select the resources that you would like help with: None Currently or been in a relationship where the following occur: No concerns reported THRIVE Score: 0 AUDIT C Alcohol Use Questionnaire (AUDIT-C) 1. How often do you have a drink containing alcohol?: Never Total Score: 0 Score Reviewed/Action Taken: No KALE-7 AMB Questionnaire KALE-7 Date KALE - 7 assessed: 09/04/24 Source: Developed by Drs. Juanito Franklin, Yojana Blood, Monty Rehman and colleagues, with an educational saida from [employer]. Review of Systems Const Denies headache(s) Eyes Denies loss of vision ENT Denies vertigo, Denies dizziness, Denies headache(s) and Denies sore throat Card Denies chest pain, Denies leg edema and Denies lightheadedness Resp Denies cough, Denies hemoptysis and Denies wheezing GI Denies abdominal pain, Denies melena, Denies constipation, Denies diarrhea and Denies vomiting Denies dysuria, Denies urinary frequency and Denies urinary urgency Musc Denies arthralgias, Denies joint swelling, Denies numbness and Denies tingling Neuro Denies Abnormal speech present, Denies behavioral changes, Denies vertigo, Denies dizziness, Denies headache(s), Denies loss of vision, Denies memory loss, Denies numbness and Denies tingling Psych Denies anxiety, Denies behavioral changes, Denies depression, Denies memory loss and Denies panic attacks Ashwin/Lymph Denies easy bleeding and Denies easy bruising Aller/Immun Denies wheezing Physical exam (Primary Care) Vital Signs: Last Vital Signs Temp 97.1 F 12/05/24 11:22 Pulse 51 12/05/24 11:22 Resp 18 12/05/24 11:22 BP 120/56 L 12/05/24 11:22 Pulse Ox 97 12/05/24 11:22 Oxygen Delivery Method Room Air 12/05/24 11:22 BMI result Body Mass Index 30.0 Tobacco/Smoking Status: Tobacco use Status Tobacco use date assessed 12/05/24 12/05/24 11:24 Patient Tobacco Use Status Never used Tobacco 12/05/24 11:24 Tobacco use type Cigarette 12/05/24 11:24 e-Cigarette/Vaping Use Never Used 12/05/24 11:24 Thrive Assessment: Date of Thrive Assessment Date Thrive assessed 12/05/24 12/05/24 11:24 Currently or been in a relationship where the following occur: No concerns reported Const General: healthy appearing, no acute distress, alert and awake Nutritional Appearance: well nourished Orientation/consciousness: oriented to person, oriented to place and oriented to time HENMT Ears: TM's normal bilaterally General nose exam: Normal nasal mucous membranes and turbinates present Eyes Conjunctivae: conjunctivae normal Sclerae: sclerae normal Pupils: Equal, round and reactive pupils present Neck Neck: Yes no lymphadenopathy and Yes no JVD Thyroid: Thyroid normal Carotids: no bruits Resp Effort & Inspection: normal respiratory effort and not tachypneic Auscultation: no crackles, no rales, no rhonchi and no wheezes Cardio Rate: regular rate Rhythm: regular rhythm Heart sounds: no murmurs and normal S1 and S2 GI Palpation (GI): Soft to palpation, nontender, no hepatomegaly and no splenomegaly Auscultation: normal bowel sounds Skin General skin exam: no rashes or lesions noted and dry skin Neuro General: oriented to person, oriented to place and oriented to time Cranial nerves: Yes Equal, round and reactive pupils present Speech: No Abnormal speech present Gait exam (Neuro): Normal gait present Motor exam (neuro): no tremor noted Extrem Right upper extremity: full ROM Left upper extremity: full ROM Right lower extremity: full ROM; no edema Left lower extremity: full ROM; no edema Psych Mental Status: mental status grossly normal Speech and movement: Normal speech and movement present Affect: normal affect Attitude: cooperative Thought process: Normal thought process present Results AMB Hemoglobin A1c AMB Hemoglobin A1c 7.6 % Last Edit by Kathryn Meza CMA on 12/05/24 11:42 Results Reviewed Results Reviewed: Laboratory Last Values Hgb A1c (Clinic) 7.6 % (4.0-6.0) H 12/05/24 11:32 Coding Level of Care Code Est Pt Level 4 (84659) Diagnoses Type 2 diabetes mellitus with hyperglycemia, without long-term current use of insulin E11.65 Diabetes mellitus complication status: with hyperglycemia Diabetes mellitus detention insulin use: without detention use Diabetes mellitus type: type 2 Paroxysmal A-fib I48.0 Primary hypertension I10 Hypertension type: primary hypertension Mixed hyperlipidemia E78.2 Hyperlipidemia type: mixed hyperlipidemia PAD (peripheral artery disease) I73.9 Assessment & Plan Assessment & Plan (1) Diabetes mellitus: Comment: filibertomedgaudencio; 40 min reviewing chart evaluating patient and documenting Code(s): E11.9 - Type 2 diabetes mellitus without complications Category: Medical Qualifiers: Diabetes mellitus complication status: with hyperglycemia Diabetes mellitus continuous churn buttermaker insulin use: without continuous churn buttermaker use Diabetes mellitus type: type 2 Qualified Code(s): E11.65 - Type 2 diabetes mellitus with hyperglycemia Plan: Patient's type 2 diabetes suboptimally controlled with A1c is 7.5. Due to his comorbidities and age will continue his current antihyperglycemic medication. Advised on reducing carbohydrates in his diet. Goal A1c to be below 7.5. (2) Paroxysmal A-fib: Code(s): I48.0 - Paroxysmal atrial fibrillation Category: Medical Plan: Patient followed by Cardiology annually. Continues on warfarin without any overt signs of bleeding. INRs has been stable. (3) HTN (hypertension): Code(s): I10 - Essential (primary) hypertension Category: Medical Qualifiers: Hypertension type: primary hypertension Qualified Code(s): I10 - Essential (primary) hypertension Plan: Patient's blood pressure acceptable today in office. Will continue his current dose of lisinopril 10 mg with goal blood pressure to remain below 140/90 (4) Hyperlipidemia: Code(s): E78.5 - Hyperlipidemia, unspecified Category: Medical Qualifiers: Hyperlipidemia type: mixed hyperlipidemia Qualified Code(s): E78.2 - Mixed hyperlipidemia Plan: Goal LDL to be below 100. It seems he has stopped using a atorvastatin 20 mg. Will recheck lipid panel in if LDL above 100 will reconsider starting statin therapy. (5) PAD (peripheral artery disease): Code(s): I73.9 - Peripheral vascular disease, unspecified Category: Medical Plan: Patient followed by vascular surgery, continues on Plavix 75 mg due to severe left lower extremity peripheral artery disease.\ Again does not report any overt signs of bleeding Orders: Orders AMB Hemoglobin A1c Today E11.9 - Type 2 diabetes mellitus without complications Microalbumin, Random (w Creat) Today E11.9 - Type 2 diabetes mellitus without complications, I10 - Essential (primary) hypertension Comprehensive Calder. Panel Fast Today E11.9 - Type 2 diabetes mellitus without complications, I10 - Essential (primary) hypertension Complete Blood Count no Diff Today E11.9 - Type 2 diabetes mellitus without complications, I10 - Essential (primary) hypertension Lipid Panel Today E78.5 - Hyperlipidemia, unspecified Medications: Changed From pioglitazone 30 mg PO DAILY 30 days 30 tabs 0RF E11.9 - Type 2 diabetes mellitus without complications, I10 - Essential (primary) hypertension To pioglitazone 30 mg PO DAILY 90 tabs 1RF 90 days E11.9 - Type 2 diabetes mellitus without complications, I10 - Essential (primary) hypertension
--- OUTSIDE RECORDS SUMMARY | 2024-12-05 13:29 | XMS_ITS | Patient Health Record ---
Author Organization [facility] Dylon leary [place] Address [address] [place] [address] Care Team Providers Care Retail Sales Consultant Name Role Phone Nicolás Torres MD Primary Care Provider Alex Moore Unavailable [phone] Reason For Referral No Information Plan Of Treatment No Information Insurance Providers Payer Name Payer Address Payer Phone Subscriber Number Group Number Insured Name Patient Relationship to Insured Coverage Start Date Coverage End Date [employer] [place] Medicare Advantage [address] [place] [address] [id number] Frankie Valles Self - patient is the insured
== END 2024-12-05 12:08 | disposition home or self-care (01) ==
LOC: HO.HMCH 11:18
PROVIDERS: PCP Internal Medicine; Visit Provider Physician Assistant
DX: E11.65 Type 2 diabetes mellitus with hyperglycemia (principal); I48.0 Paroxysmal atrial fibrillation; E11.51 Type 2 diabetes mellitus with diabetic peripheral angiopathy without gangrene; I10 Essential (primary) hypertension; E78.2 Mixed hyperlipidemia; I73.9 Peripheral vascular disease, unspecified

== ENCOUNTER → 2024-12-05 11:18 | Outpatient (BNVA) | payer MEDICARE, SELFPAY | PROVIDERS: PCP Internal Medicine; Visit Provider Physician Assistant | DX: E11.65 Type 2 diabetes mellitus with hyperglycemia (principal); I48.0 Paroxysmal atrial fibrillation; I10 Essential (primary) hypertension; I73.9 Peripheral vascular disease, unspecified; N40.0 Benign prostatic hyperplasia without lower urinary tract symptoms; E78.2 Mixed hyperlipidemia; Z79.01 Long term (current) use of anticoagulants | CPT/HCPCS: 83036; 99212 ==

== ENCOUNTER 2024-12-06 06:45 | Outpatient (REF) | payer MEDICARE, SELFPAY ==
[2024-12-06 10:29] LABS: Hemoglobin 9.2 g/dl (14.0-18.0); Mean Corpuscular HGB Conc 32.9 g/dl (31.0-36.0); Mean Corpuscular Hemoglobin 32.2 pg (27.0-33.0); Mean Corpuscular Volume 97.9 fL (80.0-98.0); Mean Platelet Volume 11.3 fL (9.4-12.4); Platelet Count 130 X10*3/uL (160-400); Red Blood Count 2.86 X10*6/uL (4.60-5.80); White Blood Count 4.6 X10*3/uL (4.8-10.8)
[2024-12-06 12:24] LABS: Microalbum/Creatinine Ratio Ur 361.2 ug/mg cr (<30)
[2024-12-06 13:04] LABS: Alanine Aminotransferase 16 U/L (0-40); Albumin Level 3.6 g/dL (3.5-5.0); Alkaline Phosphatase 49 U/L (39-117); Anion Gap 9 (12-20); Aspartate Amino Transferase 31 U/L (5-37); Bilirubin Total 0.4 mg/dL (0.0-1.0); Blood Urea Nitrogen 40 mg/dL (9-16); Calcium 8.8 mg/dL (8.4-10.2); Carbon Dioxide 23 mmol/L (22-29); Chloride 113 mmol/L (96-108); Cholesterol 115 mg/dL (<200); Estimated Glomerular Filt Rate 31; Glucose Fasting 85 mg/dL (60-99); HDL Cholesterol 29 mg/dL (>40); LDL Cholesterol Calculated 65 mg/dL (<100); Potassium 4.6 mmol/L (3.3-5.1); Sodium 140 mmol/L (135-145); Triglycerides 106 mg/dL (<150)
== END 2024-12-06 06:46 | disposition home or self-care (01) ==
LOC: HO.HMGCLDS 06:45
PROVIDERS: PCP Physician Assistant; Visit Provider Physician Assistant
DX: E11.9 Type 2 diabetes mellitus without complications (principal); I10 Essential (primary) hypertension; E78.5 Hyperlipidemia, unspecified
CPT/HCPCS: 36415; 80053; 80061; 82043; 82570; 85027

== ENCOUNTER 2024-12-20 11:12 | Outpatient (AMB) | payer MEDICARE, SELFPAY ==
[2024-12-20 11:26] LABS: Prothrombin Time Whole Bld POC 35.7 sec (11.1-13.5)
--- NOTE | 2024-12-20 11:29 | MHC.OFFVISCO ---
Intake Intake Visit Reasons: Anticoagulation Allergies environmental allergies Adverse Reaction (Intermediate, Verified 12/20/24 11:20) Itchy Eyes Medication List - Last Reconciled 12/20/24 by Noreen Tabor, RN ascorbate calcium (vitamin C) 500 mg PO DAILY blood pressure test kit-large (SureLife Arm BP Monitor kit) As directed blood sugar diagnostic (FreeStyle Lite Strips) USE 1 STRIP TO CHECK BLOOD GLUCOSE ONCE DAILY clopidogrel 75 mg PO DAILY 90 days flaxseed oil 1,000 mg PO DAILY gabapentin 100 mg PO TID 30 days glimepiride 2 mg PO BID 90 days glucosamine-chondroitin 250-200 mg (Osteo Bi-Flex) 2 tabs PO TID lisinopril 10 mg PO DAILY metformin 1,000 mg PO BID multivitamin (Daily Multi-Vitamin tablet) 1 tab PO DAILY omega-3 fatty acids (Fish Oil Concentrate) 1,000 mg PO DAILY pioglitazone 30 mg PO DAILY 90 days tamsulosin 0.4 mg PO DAILY warfarin 4 - 8 mg See Protocol PO DAILY Nursing Note INR: 3.0 in therapeutic range Medications and supplements reviewed No changes in health, diet, medications, or supplements, Denies any signs and symptoms of bleeding or bruising or clotting. Bleeding, bruising, clotting discussed Nutritional guidance given Dose: 4mg mwf/ 6mg x 4 days F/U INR: 1 month Patient verbalizes understanding of instructions given Anti-Coag Initial Assessment Social Hx Patient Tobacco Use Status: Never used Tobacco Tobacco use type: Cigarette alcohol intake: never Coding Level of Care Code Est Patient Level 1 Diagnoses Current use of anticoagulant therapy Z79.01 Assessment & Plan Assessment & Plan (1) Current use of anticoagulant therapy: Code(s): Z79.01 - halfway (current) use of anticoagulants Category: Medical
--- OUTSIDE RECORDS SUMMARY | 2024-12-20 11:33 | XMS_ITS | Patient Health Record ---
Author Organization [facility] Dylon leary [place] Address [address] [place] [address] Care Team Providers Care Neurosurgical Physician Assistant Name Role Phone Nicolás Torres MD Primary Care Provider Alex Moore Unavailable [phone] Reason For Referral No Information Plan Of Treatment No Information Insurance Providers Payer Name Payer Address Payer Phone Subscriber Number Group Number Insured Name Patient Relationship to Insured Coverage Start Date Coverage End Date [employer] [place] Medicare Advantage [address] [place] [address] [phone] [id number] Frankie Valles Self - patient is the insured
== END 2024-12-20 11:34 | disposition home or self-care (01) ==
LOC: HO.ACS 11:12
PROVIDERS: PCP Physician Assistant; Visit Provider Internal Medicine Medical Oncology
DX: Z79.01 Long term (current) use of anticoagulants (principal)

== ENCOUNTER → 2024-12-20 11:12 | Outpatient (BNVA) | payer MEDICARE, SELFPAY | PROVIDERS: PCP Physician Assistant; Visit Provider Internal Medicine Medical Oncology | DX: I48.0 Paroxysmal atrial fibrillation (principal); Z79.01 Long term (current) use of anticoagulants; Z51.81 Encounter for therapeutic drug level monitoring | CPT/HCPCS: 85610; 99211 ==

== ENCOUNTER 2025-01-07 08:09 | Outpatient (AMB) | payer MEDICARE, SELFPAY ==
--- OUTSIDE RECORDS SUMMARY | 2025-01-07 08:14 | XMS_ITS | Patient Health Record ---
Author Organization [facility] Dylon leary [place] Address [address] [place] [address] Care Team Providers Care Exchange Administrator Name Role Phone Nicolás Torres MD Primary Care Provider Alex Moore Unavailable [phone] Reason For Referral No Information Plan Of Treatment No Information Insurance Providers Payer Name Payer Address Payer Phone Subscriber Number Group Number Insured Name Patient Relationship to Insured Coverage Start Date Coverage End Date [employer] [place] Medicare Advantage [address] [place] [address] [phone] [id number] Frankie Valles Self - patient is the insured
--- OUTSIDE RECORDS SUMMARY | 2025-01-07 08:14 | XMS_ITS | Clinical Summary ---
Author Organization [facility] Address [address] [place] [address] Care Team Providers Care Nurses' Aide Name Role Phone Unavailable Primary Care Provider [...] - 1-dose 75+ series) 02/23/2016 COVID-19 Vaccine (1 - 2023-2 5 season) 2024 Influenza Vaccine (#1) 2025 HIB Vaccines Aged Out No longer [...]
--- OUTSIDE RECORDS SUMMARY | 2025-01-07 08:14 | XMS_ITS | Patient Health Record ---
Author Organization [facility] Address [address] [place] [address] Care Team Providers Care Seafood Manager Name Role Phone Nicolás Torres MD Primary Care Provider Juanito Manriquez Unavailable [phone] Reason For Referral No Information Medications Medication SIG (Take, Route, Frequency, Duration) Notes Start Date End Date Status Osteo Bi-Flex Adv Double St Active Fish Oil 07/03/2024 07/03/2024 Active Multi Vitamin/Minerals Active Flaxseed Oil Active Lisinopril 2.5mg Act velia Aspir-81 81mg Active Glimepiride 2mg Acti ve Atenolol 50mg Active Actos 30mg Active Colyte with Flavor Packs 240 GM 1 ml one time Orally Once for 1 day(s) 05/02/2012 Active metFORMIN HCl 1000mg Active Problems Problem Type SNOMED Code ICD Code Onset Dates Problem Status W/U Status Risk Notes Problem Long-term current use of drug therapy (265188845) Encounter for long-term (current) use of other medications (V58.69) Active confirmed Problem Colon cancer screening (145614633) Colon cancer screening (V76.51) Active confirmed Problem History of adenomatous polyp of colon (214238009) History of adenomatous polyp of colon (V12.72) Active confirmed Plan Of Treatment Future Test Test Name Order Date COLONOSCOPY 04/26/2012 Insurance Providers Payer Name Payer Address Payer Phone Subscriber Number Group Number Insured Name Patient Relationship to Insured Coverage Start Date Coverage End Date [facility] [address] [place] [phone] [id number] ALKA LEES Self - patient is the insured Medical (General) History Medical History History ICD Code diabetes hypertension Denies VA,CVA,Lung disease,renal disease Tubular adenomas 2000 Kidney stone--[facility] Surgical History Surgery Date(Month/Year) appendectomy cholecystectomy 1967 tonsillectomy
[2025-01-07 08:31] VITALS: BP 120/52; PULSE 57
--- NOTE | 2025-01-07 08:31 | A.OFFVIS_ITS ---
Vital Signs 01/07/25 08:31 Height 5 ft 8 in Weight 197 lb 8.547 oz BMI 30.0 BP 120/52 L Blood Pressure Location Lt brachial Position Sitting Pulse 57 Pulse Source Monitor Intake Visit Reasons: r/s 12/12/24 1 yr followup w/ekg [employer] Required: No Technician Support Association: [employer] Present Allergies environmental allergies Adverse Reaction (Intermediate, Verified 01/07/25 08:32) Itchy Eyes Medication List - Last Reconciled 01/07/25 by Danis Garsia MD blood pressure test kit-large ([employer] BP Monitor kit) As directed blood sugar diagnostic (FreeStyle Lite Strips) USE 1 STRIP TO CHECK BLOOD GLUCOSE ONCE DAILY clopidogrel 75 mg PO DAILY 90 days flaxseed oil 1,000 mg PO DAILY gabapentin 100 mg PO TID 30 days glimepiride 2 mg PO BID 90 days glucosamine-chondroitin 250-200 mg (Osteo Bi-Flex) 2 tabs PO TID lisinopril 10 mg PO DAILY metformin 1,000 mg PO BID multivitamin (Daily Multi-Vitamin tablet) 1 tab PO DAILY omega-3 fatty acids (Fish Oil Concentrate) 1,000 mg PO DAILY pioglitazone 30 mg PO DAILY 90 days tamsulosin 0.4 mg PO DAILY warfarin 4 - 8 mg See Protocol PO DAILY HPI Comments Details: Frankie comes for follow-up. Besides slowing down he said he has had no new cardiac symptoms. Denies any exertional chest pain or shortness of breath. No prolonged palpitation irregular heartbeat. He says heart rate remains in the upper 50s. No lightheadedness, syncope. Blood pressure is well controlled systolic 115-130 with diastolic in the low 50s. He has no symptoms of claudication. No bleeding issues or neurologic events. Follows with vascular surgery regularly. FORMERLY [facility], [facility] Medical History Diabetes mellitus with coincident hypertension Diabetes mellitus H/O coronary angiogram Diabetes Surgical History History of appendectomy History of cholecystectomy History of tonsillectomy History of removal of calculus of renal pelvis through percutaneous nephrostomy Toe amputee Family History Father CAD (coronary artery disease) Past heart attack Mother Diabetes Brother No problems noted. Brother Testicular cancer Brother S/P triple vessel bypass Daughter No problems noted. Daughter No problems noted. Maternal Grandmother Hypertension Social History Housing: House Alcohol intake: never Patient Tobacco Use Status: Never used Tobacco Tobacco use type: Cigarette e-Cigarette/Vaping Use: Never Used Second Hand Smoke Exposure: No service: No Current occupational status: retired Cognitive needs: No Hearing needs: No Vision needs: No Review of Systems ENT Reports dizziness Card Denies chest pain, Denies chest pain at rest, Denies chest pain with activity, Denies rapid heart rate, Denies pedal edema, Denies edema, Denies leg edema, Denies lightheadedness, Denies palpitations, Denies dyspnea, Denies dyspnea on exertion and Denies orthopnea Resp Denies cough, Denies dyspnea and Denies dyspnea on exertion GI Denies hematochezia and Denies change in stool character Musc Denies abnormal gait, Reports limited range of motion, Reports muscle cramps, Denies muscle weakness, Denies numbness, Denies radiating pain into limb, Denies stiffness and Denies tingling Neuro Denies abnormal gait, Reports dizziness, Denies numbness and Denies tingling Endo Denies palpitations Physical Exam Vital Signs: Last Vital Signs Pulse 57 01/07/25 08:31 BP 120/52 L 01/07/25 08:31 BMI result Body Mass Index 30.0 Const General: cooperative, comfortable, no acute distress, alert and awake Nutritional Appearance: overweight Orientation/consciousness: patient oriented x3 Limitations: no limitations Neck Neck: Yes trachea midline and Yes no JVD Resp Effort & Inspection: normal respiratory effort Auscultation: clear to auscultation bilaterally Cardio Jugular venous distension: no JVD Palpation: normal PMI Rate: regular rate Rhythm: regular rhythm Heart sounds: S1 normal heart sound present and S2 normal heart sound present GI Auscultation: normal bowel sounds Skin General skin exam: no rashes or lesions noted Neuro General: patient oriented x3 and no focal motor deficits Extrem General: No clubbing, No cyanosis and Yes edema (Bilateral below knee edema, left greater than right) Psych Appearance: grossly normal Office Procedures EKG Details: EKG shows sinus bradycardia with first-degree AV block otherwise normal EKG at 57 beats per minute [id number], Complete Assessment & Plan Assessment & Plan (1) Paroxysmal A-fib: Code(s): I48.0 - Paroxysmal atrial fibrillation Category: Medical Plan: Paroxysmal atrial fibrillation without any obvious recurrence. Denies any significant symptoms associated with it. For now continue metoprolol therapy. Avoidance of stimulants was discussed. Advised to call me with any new symptoms. No indication for antiarrhythmic drug therapy at this point time. Continue warfarin therapy being followed by [facility]. Target INR between 2 and 3. (2) HTN (hypertension): Code(s): I10 - Essential (primary) hypertension Category: Medical Qualifiers: Hypertension type: primary hypertension Qualified Code(s): I10 - Essential (primary) hypertension Plan: Hypertension with high pulse pressure suggestive of diffuse atherosclerotic disease. Blood pressure is currently well optimized on current therapy. Continue the same. Importance of good blood pressure control was discussed. Low-salt diet was discussed. Advised to monitor blood pressure at home maintain a log. Goal blood pressure less than 130/84. (3) PAD (peripheral artery disease): Code(s): I73.9 - Peripheral vascular disease, unspecified Category: Medical Plan: Diffuse atherosclerotic disease in this elderly gentleman without any symptoms at this point time. He is generally slowed down as not having any symptoms of claudication. Being followed by vascular surgery. Continue aggressive risk factor modification including aggressive diabetes control with goal hemoglobin A1c less than 7%. Consider high-intensity statin therapy. Currently on warfarin therapy and not sure if he needs actively additional clopidogrel therapy as this would increase his bleeding risk. Will discuss with vascular about the same. Will follow up in the clinic in 1 year's time, sooner p.r.n.. Thank you for allowing me to partake in his care Coding Level of Care Code Est Pt Level 4 (31205) Complex EM visit Add On G2211 Diagnoses Paroxysmal A-fib I48.0 Primary hypertension I10 Hypertension type: primary hypertension PAD (peripheral artery disease) I73.9 CPT Codes EKG - CPT: 98091-[id number], Complete ([id number])
== END 2025-01-07 09:08 | disposition home or self-care (01) ==
LOC: HO.HCS 08:09
PROVIDERS: PCP Internal Medicine; Visit Provider Internal Medicine Cardiovascular Disease
DX: I48.0 Paroxysmal atrial fibrillation (principal); I10 Essential (primary) hypertension; I73.9 Peripheral vascular disease, unspecified
CPT/HCPCS: 93010; 99214; G2211

== ENCOUNTER → 2025-01-07 08:09 | Outpatient (BNVA) | payer MEDICARE, SELFPAY | PROVIDERS: PCP Internal Medicine; Visit Provider Internal Medicine Cardiovascular Disease | DX: I44.0 Atrioventricular block, first degree (principal); I48.0 Paroxysmal atrial fibrillation; I10 Essential (primary) hypertension; I73.9 Peripheral vascular disease, unspecified | CPT/HCPCS: 93005; 99212 ==

== ENCOUNTER 2025-01-16 10:38 | Outpatient (AMB) | payer MEDICARE, SELFPAY ==
--- NOTE | 2025-01-16 10:45 | HO.NEPHOV_ITS ---
Vital Signs 01/16/25 10:46 Height 5 ft 8 in Weight 194 lb BMI 29.5 BP 115/52 L Blood Pressure Location Lt brachial Position Sitting Pulse 55 Pulse Source Pulse Oximeter Pulse Oximetry (%) 96 Oxygen Delivery Method Room Air Intake Visit Reasons: Chronic kidney disease, stage 3/ Conf Director Clinical Pharmacology Required: No Accompanied by: Spouse Allergies environmental allergies Adverse Reaction (Intermediate, Verified 01/16/25 10:56) Itchy Eyes Medication List - Last Reconciled 01/16/25 by Dominic Chappell MD blood pressure test kit-large ([employer] Arm BP Monitor kit) As directed blood sugar diagnostic (FreeStyle Lite Strips) USE 1 STRIP TO CHECK BLOOD GL UCOSE ONCE DAILY clopidogrel 75 mg PO DAILY 90 days empagliflozin 25 mg PO QAM flaxseed oil 1,000 mg PO DAILY gabapentin 100 mg PO TID 30 days glimepiride 2 mg PO BID 90 days glucosamine-chondroitin 250-200 mg (Osteo Bi-Flex) 2 tabs PO TID lisinopril 10 mg PO DAILY metformin 1,000 mg PO BID multivitamin (Daily Multi-Vitamin tablet) 1 tab PO DAILY omega-3 fatty acids (Fish Oil Concentrate) 1,000 mg PO DAILY tamsulosin 0.4 mg PO DAILY warfarin 4 - 8 mg See Protocol PO DAILY Do you need a note to return to daycare/school/sports/work: No HPI Comments Details: 84-year-old gentleman with past medical history of diabetes mellitus, hyperlipidemia, atrial fibrillation is here to establish care. Diabetes mellitus: Since 35 years, on glimepiride 2 mg b.i.d., gabapentin 100 mg TID, pioglitazone 30 mg daily. Last HbA1c 7.6. Blood sugars are around 110s at home. Hypertension: Since he was 46, on lisinopril 10 mg, tamsulosin 0.4 mg BPH: has some with trouble urinating in the morning,on tamsulosin also has a kidney stone. DVT: on warfarin for anticoagulation [facility] Medical History Diabetes mellitus with coincident hypertension Diabetes mellitus H/O coronary angiogram Diabetes Surgical History History of appendectomy History of cholecystectomy History of tonsillectomy History of removal of calculus of renal pelvis through percutaneous nephrostomy Toe amputee Family History Father CAD (coronary artery disease) Past heart attack Mother Diabetes Brother No problems noted. Brother Testicular cancer Brother S/P triple vessel bypass Daughter No problems noted. Daughter No problems noted. Maternal Grandmother Hypertension Social History Housing: House Alcohol intake: never Patient Tobacco Use Status: Never used Tobacco Tobacco use type: Cigarette e-Cigarette/Vaping Use: Never Used Second Hand Smoke Exposure: No service: No Current occupational status: retired Cognitive needs: No Hearing needs: No Vision needs: No Review of Systems Const Details: Const Denies body aches, Denies chills, Denies excessive sweating and Denies fatigue Eyes Denies blurry vision and Denies change in vision ENT Denies bleeding gums and Denies change in voice Card Denies chest pain and Denies leg ulcers Resp Denies cough and Denies excessive phlegm production GI Denies abdominal pain and Denies bloating Denies hematuria, Denies urinary frequency and Denies difficulty voiding Musc Denies abnormal gait Neuro Denies Neuro-related abnormal movements, Denies abnormal gait and Denies behavioral changes Psych Denies behavioral changes and Denies change in appetite Endo Denies change in body appearance, Denies cold intolerance, Denies excessive sweating and Denies fatigue Physical Exam Vital Signs: Last Vital Signs Pulse 55 01/16/25 10:46 BP 115/52 L 01/16/25 10:46 Pulse Ox 96 01/16/25 10:46 Oxygen Delivery Method Room Air 01/16/25 10:46 BMI result Body Mass Index 29.5 General: Not in any acute distress, comfortable, sitting on the chair Nutritional Appearance: well nourished and overweight Eyes: appearance normal, both eyes and all related structures; Alignment and Position: alignment normal and position normal Neck: No lymphadenopathy, no thyromegaly Resp: bilateral air entry equal, no added sounds present Cardio: normal S1, S2 heard. ++ edema in bilateral lower extremities GI: soft, nontender, no guarding, no hepatosplenomegaly : bladder normal to inspection, bladder normal to palpation, no renal angle tenderness Skin: no rashes or lesions noted and elasticity normal Neuro: oriented to person, oriented to place, oriented to time and moves all extremities Results Reviewed Nephrology Results: Hgb, (14.0-18.0) 9.2 g/dl L 12/06/24 WBC, (4.8-10.8) 4.6 X10*3/uL L 12/06/24 Plt Count, (160-400) 130 X10*3/uL L 12/06/24 Sodium, (135-145) 140 mmol/L 12/06/24 Potassium, (3.3-5.1) 4.6 mmol/L 12/06/24 Chloride, (96-108) 113 mmol/L H 12/06/24 Carbon Dioxide, (22-29) 23 mmol/L 12/06/24 BUN, (9-16) 40 mg/dL H 12/06/24 Creatinine, (0.5-1.4) 2.04 mg/dL H 12/06/24 Calcium, (8.4-10.2) 8.8 mg/dL 12/06/24 Urine Creatinine 90.80 mg/dL 12/06/24 Renal US 01/01/24 Assessment & Plan Assessment & Plan (1) HTN (hypertension): Code(s): I10 - Essential (primary) hypertension Category: Medical Qualifiers: Hypertension type: primary hypertension Qualified Code(s): I10 - Essential (primary) hypertension (2) CKD (chronic kidney disease) stage 3, GFR 30-59 ml/min: Code(s): N18.30 - Chronic kidney disease, stage 3 unspecified Category: Medical (3) Proteinuria: Code(s): R80.9 - Proteinuria, unspecified Category: Medical Plan Chronic kidney disease stage III/IV A3: - possibly secondary to diabetic kidney disease but would like to rule out other etiologies - no family history of CKD, he has history of renal stones several decades ago, no history of NSAID use. - creatinine was 1.6 on 01/05/2024 now increased to 2.04 a month ago , GFR 31, - urine albumin creatinine ratio: 361.2, it was 549.9 in 12/2022 - Urinalysis shows - Renal ultrasound showed 12 cm right kidney, 12.3 cm left kidney. Bosniak class 1 renal cyst measuring 4.2 cm in right lower pole in 01/2024. We will rep eat a kidney ultrasound. - avoid nephrotoxic medications not limited to NSAIDs, contrast etc. - importance of diet, weight loss, adequate blood pressure control, stopped smoking we will explained to patient - we will get hepatitis panel, HIV, LUKE, ANCA, complements, SPEP, UPEP, serum free light chains, PLA2R. - Will add Jardiance 25 mg daily. Side effects including urinary tract infection, poor healing of foot wounds explained to the patient in which case he has to stop the medication. - if the GFR drops below 30 with the next visit please switch glimepiride 2 glipizide- still there is a slightly increased risk of hypoglycemia with it. Safer alternatives include linagliptin> sitagliptin as it can be used even in ESRD. - We will stop pioglitazone as he has bilateral leg swelling and overload. Hypertension: - target blood pressures less than 130/90 mm Hg; current blood pressure 115/52 - compliance: - continue lisinopril 10, tamsulosin 0.4 Anemia of chronic kidney disease: - will get iron, TIBC, ferritin levels Mineral bone disease: - will get calcium, phos, vitamin-D and PTH levels Total time spent is about 40 minutes, 20 minutes in the encounter, 10 minutes on chart review and 10 minutes on documentation. Orders: Orders Protein Electrophoresis, Serum Today I10 - Essential (primary) hypertension, N18.30 - Chronic kidney disease, stage 3 unspecified, R80.9 - Proteinuria, unspecified Complement C4 Today I10 - Essential (primary) hypertension, N18.30 - Chronic kidney disease, stage 3 unspecified, R80.9 - Proteinuria, unspecified Basic Metabolic Panel Today I10 - Essential (primary) hypertension, N18.30 - Chronic kidney disease, stage 3 unspecified, R80.9 - Proteinuria, unspecified UA and rflx microscopic Today I10 - Essential (primary) hypertension, N18.30 - Chronic kidney disease, stage 3 unspecified, R80.9 - Proteinuria, unspecified Total Protein Urine Random Today I10 - Essential (primary) hypertension, N18.30 - Chronic kidney disease, stage 3 unspecified, R80.9 - Proteinuria, unspecified IRON PROFILE Today I10 - Essential (primary) hypertension, N18.30 - Chronic kidney disease, stage 3 unspecified, R80.9 - Proteinuria, unspecified Basic Metabolic Panel 3 Months I10 - Essential (primary) hypertension, N18.30 - Chronic kidney disease, stage 3 unspecified, R80.9 - Proteinuria, unspecified Total Protein Urine Random 3 Months I10 - Essential (primary) hypertension, N18.30 - Chronic kidney disease, stage 3 unspecified, R80.9 - Proteinuria, unspecified Creatinine Urine 3 Months I10 - Essential (primary) hypertension, N18.30 - Chronic kidney disease, stage 3 unspecified, R80.9 - Proteinuria, unspecified Hepatitis B,C Profile Today I10 - Essential (primary) hypertension, N18.30 - Chronic kidney disease, stage 3 unspecified, R80.9 - Proteinuria, unspecified HIV Ab/Ag Today I10 - Essential (primary) hypertension, N18.30 - Chronic kidney disease, stage 3 unspecified, R80.9 - Proteinuria, unspecified LUKE Reflex Titer and Pattern Today I10 - Essential (primary) hypertension, N18.30 - Chronic kidney disease, stage 3 unspecified, R80.9 - Proteinuria, unspecified ANCA Vasculitides Today I10 - Essential (primary) hypertension, N18.30 - Chronic kidney disease, stage 3 unspecified, R80.9 - Proteinuria, unspecified Complement C3 Today I10 - Essential (primary) hypertension, N18.30 - Chronic kidney disease, stage 3 unspecified, R80.9 - Proteinuria, unspecified Protein Electrophoresis,Ran Ur Today I10 - Essential (primary) hypertension, N18.30 - Chronic kidney disease, stage 3 unspecified, R80.9 - Proteinuria, unspecified Mar-Mac/Lambda Light Chain Serum Today I10 - Essential (primary) hypertension, N18.30 - Chronic kidney disease, stage 3 unspecified, R80.9 - Proteinuria, unspecified Phospholipase A2 Receptor Pnl Today I10 - Essential (primary) hypertension, N18.30 - Chronic kidney disease, stage 3 unspecified, R80.9 - Proteinuria, unspecified Microalbumin, Random (w Creat) Today I10 - Essential (primary) hypertension, N1 8.30 - Chronic kidney disease, stage 3 unspecified, R80.9 - Proteinuria, unspecified Creatinine Urine Today I10 - Essential (primary) hypertension, N18.30 - Chronic kidney disease, stage 3 unspecified, R80.9 - Proteinuria, unspecified Phosphorus Today I10 - Essential (primary) hypertension, N18.30 - Chronic kidney disease, stage 3 unspecified, R80.9 - Proteinuria, unspecified Vitamin D 25-OH Total Today I10 - Essential (primary) hypertension, N18.30 - Chronic kidney disease, stage 3 unspecified, R80.9 - Proteinuria, unspecified Parathyroid Hormone Intact Today I10 - Essential (primary) hypertension, N18.30 - Chronic kidney disease, stage 3 unspecified, R80.9 - Proteinuria, unspecified Complete Blood Count no Diff Today I10 - Essential (primary) hypertension, N18.30 - Chronic kidney disease, stage 3 unspecified, R80.9 - Proteinuria, unspecified US renal BI 1 Week I10 - Essential (primary) hypertension, N18.30 - Chronic kidney disease, stage 3 unspecified, R80.9 - Proteinuria, unspecified UA and rflx microscopic 3 Months I10 - Essential (primary) hypertension, N18.30 - Chronic kidney disease, stage 3 unspecified, R80.9 - Proteinuria, unspecified Microalbumin, Random (w Creat) 3 Months I10 - Essential (primary) hypertension, N18.30 - Chronic kidney disease, stage 3 unspecified, R80.9 - Proteinuria, unspecified Complete Blood Count no Diff 3 Months I10 - Essential (primary) hypertension, N18.30 - Chronic kidney disease, stage 3 unspecified, R80.9 - Proteinuria, unspecified Medications: New empagliflozin 25 mg PO QAM 90 tabs 3RF Coding Level of Care Code New Pt Level 4 (78319) Diagnoses Primary hypertension I10 Hypertension type: primary hypertension CKD (chronic kidney disease) stage 3, GFR 30-59 ml/min N18.30 Proteinuria R80.9
[2025-01-16 10:46] VITALS: BP 115/52; PULSE 55; O2SAT 96; BMI 29.5
--- OUTSIDE RECORDS SUMMARY | 2025-01-16 11:15 | XMS_ITS | Patient Health Record ---
Author Organization [facility] Address [address] [place] [address] Care Team Providers Care Strategic Planning Consultant Name Role Phone Nicolás Torres MD Primary Care Provider Juanito Manriquez Unavailable [phone] Reason For Referral No Information Medications Medication [...] Problem Long-term current use of drug therapy (758805085) Encounter for long-term (current) use of other medications (V58.69) Active confirmed Problem Colon cancer screening (367138554) Colon cancer screening (V76.51) Active confirmed Problem History of adenomatous polyp of colon (175518849) History of adenomatous polyp of colon (V12.72) Active confirmed Plan Of Treatment Future Test Test Name Order Date COLONOSCOPY 04/26/2012 Insurance Providers Payer Name Payer Address Payer Phone Subscriber Number Group Number Insured Name Patient Relationship to Insured Coverage Start Date Coverage End Date [facility] [address] [place] [phone] [id number] ALKA LEES Self - patient is the insured Medical (General) History Medical History History ICD Code diabetes hypertension Denies [place],CVA,Lung disease,renal disease Tubular adenomas 2000 Kidney stone--[facility] Surgical History Surgery Date(Month/Year) appendectomy cholecystectomy 1967 tonsillectomy
--- OUTSIDE RECORDS SUMMARY | 2025-01-16 11:15 | XMS_ITS | Patient Health Record ---
Author Organization [facility] [place] Address [address] [place] [address] Care Team Providers Care Accounting Officer Name Role Phone Nicolás Torres MD Primary Care Provider Alex Moore Unavailable [phone] Reason For Referral No Information Plan Of Treatment No Information Insurance Providers Payer Name Payer Address Payer Phone Subscriber Number Group Number Insured Name Patient Relationship to Insured Coverage Start Date Coverage End Date [employer] [place] [employer]age [address] [place] [address] [id number] Frankie Valles Self - patient is the insured
--- OUTSIDE RECORDS SUMMARY | 2025-01-16 11:15 | XMS_ITS | Clinical Summary ---
Author Organization [facility] ity Address [address] [place] [address] Care Team Providers Care Cap Machine Operator Name Role Phone Unavailable Primary Care Provider [...]
== END 2025-01-16 11:45 | disposition home or self-care (01) ==
LOC: HO.HKA 10:39
PROVIDERS: PCP Physician Assistant; Referring Provider Physician Assistant; Visit Provider Internal Medicine Critical Care Medicine
DX: I10 Essential (primary) hypertension (principal); N18.30 Chronic kidney disease, stage 3 unspecified; R80.9 Proteinuria, unspecified
CPT/HCPCS: 99204

== ENCOUNTER 2025-01-16 10:38 | Outpatient (REF) | payer MEDICARE, SELFPAY ==
[2025-01-16 16:17] LABS: Hematocrit 27.3 % (42.0-52.0); Hemoglobin 9.1 g/dl (14.0-18.0); Mean Corpuscular HGB Conc 33.3 g/dl (31.0-36.0); Mean Corpuscular Hemoglobin 32.6 pg (27.0-33.0); Mean Corpuscular Volume 97.8 fL (80.0-98.0); NRBC Abs Auto 0.000 X10*3/uL (0.0-0.012); NRBC Pct Auto 0.0 /100WBC (0.0-0.2); Platelet Count 126 X10*3/uL (160-400); Red Blood Count 2.79 X10*6/uL (4.60-5.80); White Blood Count 4.2 X10*3/uL (4.8-10.8)
[2025-01-16 16:28] LABS: Appearance Urine Clear; Glucose Urine UA Negative (Negative); PH 5.0 (5.0-9.0); Specific Gravity - Urine 1.020 (1.005-1.025); UMIC TRIGGER UA YES
[2025-01-16 16:46] LABS: Parathyroid Hormone Intact 46.1 pg/mL (8.7-77.1)
[2025-01-16 16:50] LABS: Anion Gap 10 (12-20); Blood Urea Nitrogen 40 mg/dL (9-16); Calcium 8.6 mg/dL (8.4-10.2); Carbon Dioxide 21 mmol/L (22-29); Chloride 113 mmol/L (96-108); Estimated Glomerular Filt Rate 33; Iron 98 mcg/dL (45-160); Percent Iron Saturation 31 % (15-50); Potassium 5.2 mmol/L (3.3-5.1); Sodium 139 mmol/L (135-145); Total Iron Binding Capacity 314 mcg/dL (228-428); Unsaturated Iron Binding 216 ug/dL
[2025-01-16 17:21] LABS: Total Protein Urine Random 109 mg/dL (<12)
[2025-01-16 17:32] LABS: Microalbum/Creatinine Ratio Ur 522.9 ug/mg cr (<30)
[2025-01-17 04:16] LABS: HBS Num1 1.07 mIU/mL (0-7.99); HBc Num1 0.09 S/CO (0.00-0.79); HBsAGNum1 0.44 S/CO (0.00-0.99); HIV Num 1 0.05 S/CO (0.00-0.99); Hepatitis B Surface Antigen Negative (Negative); ~HepC Num1 0.12 S/CO (0.00-0.79); ~Hepatitis B Surface Antibody NONREACTIVE (Nonreactive); ~Hepatitis C Antibody Nonreactive (Nonreactive)
[2025-01-17 20:57] LABS: Prot Elec - Albumin 3.6 g/dL (3.8-4.8); Prot Elec - Alpha1 0.3 g/dL (0.2-0.3); Prot Elec - Alpha2 0.7 g/dL (0.5-0.9); Prot Elec - Beta 1 0.4 g/dL (0.4-0.6); Prot Elec - Beta 2 0.3 g/dL (0.2-0.5); Prot Elec - Gamma 0.8 g/dL (0.8-1.7); Prot Elec - Total Protein 6.0 g/dL (6.1-8.1)
[2025-01-20 09:59] LABS: PEU-Protein Creat Ratio Rand 0.836 (0.025-0.148); PEU-Rand. Prot/Creat Ratio 836 mg/g creat (25-148); PEU-Random Ur. Gamma Globulin 12 %; PEU-Random Urine A1 Globulin 3 %; PEU-Random Urine A2 Globulin 11 %; PEU-Random Urine Albumin 61 %; PEU-Random Urine Beta Globulin 13 %; PEU-Random Urine Creatinine 128 mg/dL (20-320); PEU-Random Urine Protein 107 mg/dL (5-25)
[2025-01-20 15:43] LABS: Anti Nuclear Antibody Screen NEGATIVE (NEGATIVE)
[2025-01-20 21:34] LABS: Proteinase 3 PR3 Antibodies <1.0 AI
[2025-01-23 02:39] LABS: Phospholipase A2 IgG ELISA <4 RU/mL; Phospholipase A2 IgG IFA NEGATIVE (NEGATIVE)
[2025-01-23 17:03] LABS: Kappa, Serum 221 mg/dL (176-443); Kappa/Lambda Ratio, Serum 2.10 (1.29-2.55); Lambda, Serum 105 mg/dL (91-240)
== END 2025-01-16 10:39 | disposition home or self-care (01) ==
LOC: HO.HMGCLDS 10:38
PROVIDERS: PCP Physician Assistant; Referring Provider Physician Assistant; Visit Provider Internal Medicine Critical Care Medicine
DX: I12.9 Hypertensive chronic kidney disease with stage 1 through stage 4 chronic kidney disease, or unspecified chronic kidney disease (principal); N18.30 Chronic kidney disease, stage 3 unspecified; R80.9 Proteinuria, unspecified
CPT/HCPCS: 80048; 81001; 82043; 82306; 82570; 83520; 83540; 83883; 83970; 84100; 84156; 84165; 84166; 85027; 86021; 86038; 86160; 86255; 86704; 86706; 86803; 87340; 87389; 99202

== ENCOUNTER 2025-01-24 11:08 | Outpatient (AMB) | payer MEDICARE, SELFPAY ==
--- NOTE | 2025-01-24 11:15 | MHC.OFFVISCO ---
Intake Intake Visit Reasons: Anticoagulation Allergies environmental allergies Adverse Reaction (Intermediate, Verified 01/24/25 11:11) Itchy Eyes Medication List - Last Reconciled 01/24/25 by Funmilayo Putnam RN blood pressure test kit-large ([employer] Arm BP Monitor kit) As directed blood sugar diagnostic (FreeStyle Lite Strips) USE 1 STRIP TO CHECK BLOOD GLUCOSE ONCE DAILY clopidogrel 75 mg PO DAILY 90 days empagliflozin 25 mg PO QAM flaxseed oil 1,000 mg PO DAILY gabapentin 100 mg PO TID 30 days glimepiride 2 mg PO BID 90 days glucosamine-chondroitin 250-200 mg (Osteo Bi-Flex) 2 tabs PO TID lisinopril 10 mg PO DAILY metformin 1,000 mg PO BID multivitamin (Daily Multi-Vitamin tablet) 1 tab PO DAILY omega-3 fatty acids (Fish Oil Concentrate) 1,000 mg PO DAILY tamsulosin 0.4 mg PO DAILY warfarin 4 - 8 mg See Protocol PO DAILY Nursing Note INR 3.7-?? out of therapeutic range of 2-3 Medications and supplements reviewed Patient status: no c.o Medications or supplements: no changes Diet: appetite good Denies any signs and symptoms of bleeding or clotting or unusual bruising Bleeding, bruising, clotting discussed Nutritional guidance given: eat greens to lower Dose: already took warfarin today, reduce tomm to 2mg then cont reg dosing 4mg x 3, 6mg x 4 F/U INR Date pt ref earlier than 3 weeks Patient verbalizing understanding of instructions given. 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
--- OUTSIDE RECORDS SUMMARY | 2025-01-24 11:16 | XMS_ITS | Clinical Summary ---
Author Organization [facility] ity Address [address] [place] [address] Care Team Providers Care Game Producer Name Role Phone Unavailable Primary Care Provider [...] Vaccine (1 - 2023-2 5 season) 2024 Depression Screening 07/03/2024 Influenza Vaccine (#1) 2025 HIB Vaccines Aged [...]
--- OUTSIDE RECORDS SUMMARY | 2025-01-24 11:16 | XMS_ITS | Patient Health Record ---
Author Organization [facility] [place] Address [address] [place] [address] Care Team Providers Care Hide Sorter Name Role Phone Nicolás Torres MD Primary Care Provider Alex Moore Unavailable [phone] Reason For Referral No Information Plan Of Treatment No Information Insurance Providers Payer Name Payer Address Payer Phone Subscriber Number Group Number Insured Name Patient Relationship to Insured Coverage Start Date Coverage End Date [employer] [place] [employer]vantage [address] [facility] [place] [address] [id number] Frankie Valles Self - patient is the insured
--- OUTSIDE RECORDS SUMMARY | 2025-01-24 11:16 | XMS_ITS | Patient Health Record ---
Author Organization [facility] Address [address] [place] [address] Care Team Providers Care Sprinkler Helper Name Role Phone Nicolás Torres MD Primary Care Provider Juanito Manriquez Unavailable [phone] Reason For Referral No Information Medications Medication [...] Problem Long-term current use of drug therapy (053610045) Encounter for long-term (current) use of other medications (V58.69) Active confirmed Problem Colon cancer screening (091719640) Colon cancer screening (V76.51) Active confirmed Problem History of adenomatous polyp of colon (830521948) History of adenomatous polyp of colon (V12.72) Active confirmed Plan Of Treatment Future Test Test Name Order Date COLONOSCOPY 04/26/2012 Insurance Providers Payer Name Payer Address Payer Phone Subscriber Number Group Number Insured Name Patient Relationship to Insured Coverage Start Date Coverage End Date [facility] [address] [place] [phone] [id number] ALKA LEES Self - patient is the insured Medical (General) History Medical History History ICD Code diabetes hypertension Denies [place],CVA,Lung disease,renal disease Tubular adenomas 2000 Kidney stone--[facility] Surgical History Surgery Date(Month/Year) appendectomy cholecystectomy 1967 tonsillectomy
[2025-01-24 16:23] LABS: Prothrombin Time Whole Bld POC 44.5 sec (11.1-13.5); ~PT, ~INR - Anti Coag Clinic 3.7 (0.9-1.1)
== END 2025-01-24 11:24 | disposition home or self-care (01) ==
LOC: HO.ACS 11:08
PROVIDERS: PCP Physician Assistant; Visit Provider Internal Medicine Medical Oncology
DX: Z79.01 Long term (current) use of anticoagulants (principal)

== ENCOUNTER → 2025-01-24 11:08 | Outpatient (BNVA) | payer MEDICARE, SELFPAY | PROVIDERS: PCP Physician Assistant; Visit Provider Internal Medicine Medical Oncology | DX: I48.0 Paroxysmal atrial fibrillation (principal); Z79.01 Long term (current) use of anticoagulants; Z51.81 Encounter for therapeutic drug level monitoring | CPT/HCPCS: 85610; 99211 ==

== ENCOUNTER 2025-02-14 11:05 | Outpatient (AMB) | payer MEDICARE, SELFPAY ==
--- OUTSIDE RECORDS SUMMARY | 2025-02-14 11:15 | XMS_ITS | Patient Health Record ---
Author Organization [facility] Address [address] [place] [address] Care Team Providers Care Medical Scheduler Name Role Phone Nicolás Torres MD Primary Care Provider Juanito Manriquez Unavailable [phone] Reason For Referral No Information Medications Medication [...] Problem Long-term current use of drug therapy (328873667) Encounter for long-term (current) use of other medications (V58.69) Active confirmed Problem Colon cancer screening (V76.51) Active confirmed Problem History of adenomatous polyp of colon (366197204) History of adenomatous polyp of colon (V12.72) Active confirmed Plan Of Treatment Future Test Test Name Order Date COLONOSCOPY 04/26/2012 Insurance Providers Payer Name Payer Address Payer Phone Subscriber Number Group Number Insured Name Patient Relationship to Insured Coverage Start Date Coverage End Date [facility] [address] [place] [phone] [id number] ALKA LEES Self - patient is the insured Medical (General) History Medical History History ICD Code diabetes hypertension Denies [place],CVA,Lung disease,renal disease Tubular adenomas 2000 Kidney stone--[facility] Surgical History Surgery Date(Month/Year) appendectomy cholecystectomy 1967 tonsillectomy
--- OUTSIDE RECORDS SUMMARY | 2025-02-14 11:15 | XMS_ITS | Clinical Summary ---
Author Organization [facility] Address [address] [place] [address] Care Team Providers Care Tier Over Name Role Phone Unavailable Primary Care Provider [...]
--- OUTSIDE RECORDS SUMMARY | 2025-02-14 11:15 | XMS_ITS | Patient Health Record ---
Author Organization [facility] [place] Address [address] [place] [address] Care Team Providers Care Forest Pathology Associate Professor Name Role Phone Nicolás Torres MD Primary Care Provider Alex Moore Unavailable [phone] Reason For Referral No Information Plan Of Treatment No Information Insurance Providers Payer Name Payer Address Payer Phone Subscriber Number Group Number Insured Name Patient Relationship to Insured Coverage Start Date Coverage End Date [employer] Medicare Advantage [address] [place] [address] [id number] Frankie Valles Self - patient is the insured
[2025-02-14 11:18] LABS: Prothrombin Time Whole Bld POC 42.4 sec (11.1-13.5); ~PT, ~INR - Anti Coag Clinic 3.5 (0.9-1.1)
--- NOTE | 2025-02-14 11:30 | MHC.OFFVISCO ---
Intake Intake Visit Reasons: Anticoagulation Allergies environmental allergies Adverse Reaction (Intermediate, Verified 02/14/25 11:08) Itchy Eyes Medication List - Last Reconciled 02/14/25 by Fiorella Weiss RN blood pressure test kit-large ([employer] Arm BP Monitor kit) As directed blood sugar diagnostic (FreeStyle Lite Strips) USE 1 STRIP TO CHECK BLOOD GLUCOSE ONCE DAILY clopidogrel 75 mg PO DAILY 90 days empagliflozin 25 mg PO QAM flaxseed oil 1,000 mg PO DAILY gabapentin 100 mg PO TID 30 days glimepiride 2 mg PO BID 90 days glucosamine-chondroitin 250-200 mg (Osteo Bi-Flex) 2 tabs PO TID lisinopril 20 mg (2 x 10 mg) PO DAILY metformin 1,000 mg PO BID multivitamin (Daily Multi-Vitamin tablet) 1 tab PO DAILY omega-3 fatty acids (Fish Oil Concentrate) 1,000 mg PO DAILY pioglitazone 30 mg PO DAILY tamsulosin 0.4 mg PO DAILY warfarin 4 - 8 mg See Protocol PO DAILY Nursing Note NO CP,SOB,DIET/MED CHANGES,FALLS OR SX OF BLEEDING. HOLD WARFARIN TOMORROW(TOOK TODAY), THEN RESUME USUSAL DOSING AND FOLLOW-UP IN 2 WEEKS GRE[place] TODAY AND 2-3X WEEKLY GOOD UNDERATANDING OF DOSING INSTR. 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
== END 2025-02-14 11:32 | disposition home or self-care (01) ==
LOC: HO.ACS 11:05
PROVIDERS: PCP Physician Assistant; Visit Provider Internal Medicine Medical Oncology
DX: Z79.01 Long term (current) use of anticoagulants (principal)

== ENCOUNTER → 2025-02-14 11:05 | Outpatient (BNVA) | payer MEDICARE, SELFPAY | PROVIDERS: PCP Physician Assistant; Visit Provider Internal Medicine Medical Oncology | DX: Z79.01 Long term (current) use of anticoagulants (principal) | CPT/HCPCS: 85610; 99211 ==

== ENCOUNTER 2025-02-26 14:13 | Outpatient (REF) | payer MEDICARE, SELFPAY ==
--- OUTSIDE RECORDS SUMMARY | 2023-10-26 05:30 | XMS_ITS ---
Author Organization [facility] Address [address] [place] [phone] Care Team Providers Care Manager Of Clinical Name Role Phone Brian ROGEL, Nicolás Primary Care Provider Alex oMore [phone] Encounters Encounter Location Date Provider Diagnosis [facility] [address] [place] [address] 10/26/2023 Alex Lancaster Plan Of Treatment No Information Progress Notes * Frankie VALLES DDOB: (85 yo M)Acc No.[id number]:10/26/2023 Progress Notes Patient: Nadege BARRERA Frankie Maloney Provider: Aure Lancaster DPM :1940 A ge:83 Y S ex:Male Date:10/26/2023 Address:[address] [place], [place] [phone] Pcp:Nicolás Torres MD Subjective: * Chief Complaints: * * Medical History: Objective: * Vitals: Assessment: Plan: * Treatment: * Images: * The named appointment provid er may or may not be the originator of this progress note, and it is not deemed complete until electronically signed by the appointment provider. Sign off status: Pending * Provider: Aure Lancaster DPM Date: 10/26/2023 Generated for Fauzia go/Faramírez/eTransmitting on: 02/26/2025 03:13 PM EDT
--- NOTE | ~2025-02-26 | US_ITS ---
EXAMINATION: US KIDNEY BILATERAL HISTORY: I10 - Essential (primary) hypertension TECHNIQUE: Real-time grayscale ultrasound imaging of the kidneys was performed and images were reviewed. COMPARISON: Comparison is made with the prior examination dated 01/01/2024. FINDINGS: Right kidney: The right kidney measures 12.2 x 5.0 x 5.2 cm. There is mild renal cortical thinning and increased echotexture, consistent with chronic medical renal disease. Multiple cysts are noted at the lower pole measuring 3.5 x 3.4 x 4.0 cm and 1.3 x 0.8 x 0.9 cm. There is no hydronephrosis or renal calculi. Left Kidney: The left kidney measures 13.4 x 6.1 x 5.8 cm. There is mild renal cortical thinning and increased echotexture, consistent with chronic medical renal disease. There is an upper pole cyst measuring 1.3 x 0.8 x 0.8 cm. There is no hydronephrosis or renal calculi. US/US renal BI IMPRESSION: Mild bilateral renal cortical thinning and increased echotexture, consistent with chronic medical renal disease. Bilateral renal cysts as described. Electronically signed by: Juanito Wong MD 02/26/2025 02:55 PM EDT
--- OUTSIDE RECORDS SUMMARY | 2025-02-26 15:13 | XMS_ITS | Clinical Summary ---
Author Organization [facility] Address [address] [place] [address] Care Team Providers Care Blackener Name Role Phone Unavailable Primary Care Provider [...]
--- OUTSIDE RECORDS SUMMARY | 2025-02-26 15:13 | XMS_ITS | Patient Health Record ---
Author Organization [facility] Address [address] [place] [address] Care Team Providers Care Load Blocker Name Role Phone Nicolás Torres MD Primary Care Provider Juanito Manriquez Unavailable [phone] Reason For Referral No Information Medications Medication [...] Problem Long-term current use of drug therapy (476651965) Encounter for long-term (current) use of other medications (V58.69) Active confirmed Problem Colon cancer screening (906685860) Colon cancer screening (V76.51) Active confirmed Problem History of adenomatous polyp of colon (176122767) History of adenomatous polyp of colon (V12.72) Active confirmed Plan Of Treatment Future Test Test Name Order Date COLONOSCOPY 04/26/2012 Insurance Providers Payer Name Payer Address Payer Phone Subscriber Number Group Number Insured Name Patient Relationship to Insured Coverage Start Date Coverage End Date [facility] [address] [place] [phone] [id number] ALKA LEES Self - patient is the insured Medical (General) History Medical History History ICD Code diabetes hypertension Denies [place],CVA,Lung disease,renal disease Tubular adenomas 2000 Kidney stone--[facility] Surgical History Surgery Date(Month/Year) appendectomy cholecystectomy 1967 tonsillectomy
--- OUTSIDE RECORDS SUMMARY | 2025-02-26 15:13 | XMS_ITS | Patient Health Record ---
Author Organization [facility] [place] Address [address] [place] [address] Care Team Providers Care Marketing Systems Analyst Name Role Phone Nicolás Torres MD Primary Care Provider Alex Moore Unavailable [phone] Reason For Referral No Information Plan Of Treatment No Information Insurance Providers Payer Name Payer Address Payer Phone Subscriber Number Group Number Insured Name Patient Relationship to Insured Coverage Start Date Coverage End Date [employer] Medicare Advantage [address] [place] [address] [id number] Frankie Valles Self - patient is the insured
== END 2025-02-26 14:14 | disposition home or self-care (01) ==
LOC: HO.HMGCX 14:13
PROVIDERS: PCP Physician Assistant; Visit Provider Internal Medicine Critical Care Medicine
DX: I12.9 Hypertensive chronic kidney disease with stage 1 through stage 4 chronic kidney disease, or unspecified chronic kidney disease (principal); N18.30 Chronic kidney disease, stage 3 unspecified; R80.9 Proteinuria, unspecified
CPT/HCPCS: 76775

== ENCOUNTER → 2025-02-26 14:17 | Outpatient (BNV) | payer MEDICARE, SELFPAY | PROVIDERS: PCP Physician Assistant; Visit Provider Radiology Diagnostic Radiology | DX: N28.1 Cyst of kidney, acquired (principal) | CPT/HCPCS: 76775 ==

== ENCOUNTER 2025-02-28 11:17 | Outpatient (AMB) | payer MEDICARE, SELFPAY ==
[2025-02-28 11:26] LABS: Prothrombin Time Whole Bld POC 36.9 sec (11.1-13.5); ~PT, ~INR - Anti Coag Clinic 3.1 (0.9-1.1)
--- NOTE | 2025-02-28 11:34 | MHC.OFFVISCO ---
Intake Intake Visit Reasons: Anticoagulation Allergies environmental allergies Adverse Reaction (Intermediate, Verified 02/28/25 11:19) Itchy Eyes Medication List - Last Reconciled 02/28/25 by Bethany Richardson RN blood pressure test kit-large ([employer] Arm BP Monitor kit) As directed blood sugar diagnostic (FreeStyle Lite Strips) USE 1 STRIP TO CHECK BLOOD GLUCOSE ONCE DAILY empagliflozin 25 mg PO QAM flaxseed oil 1,000 mg PO DAILY gabapentin 100 mg PO TID 30 days glimepiride 2 mg PO BID 90 days glucosamine-chondroitin 250-200 mg (Osteo Bi-Flex) 2 tabs PO TID lisinopril 20 mg (2 x 10 mg) PO DAILY metformin 1,000 mg PO BID multivitamin (Daily Multi-Vitamin tablet) 1 tab PO DAILY omega-3 fatty acids (Fish Oil Concentrate) 1,000 mg PO DAILY pioglitazone 30 mg PO DAILY tamsulosin 0.4 mg PO DAILY warfarin 4 - 8 mg See Protocol PO DAILY Nursing Note INR: 3.1 out of therapeutic range of 2-3 Medications and supplements reviewed Patient status: c/o leg and back pain. Denies taking tylenol. Medications or supplements: no changes Diet: no changes Denies any signs and symptoms of bleeding or clotting or unusual bruising Bleeding, bruising, clotting discussed Nutritional guidance given: to have a serving of greens today Dose: weekly dose decreased by 2mg as pt has been 3.0-3.7 since May will take 4mg X 4 days and 6mg X 3 days (M/W/F) F/U INR Date : 1 month?? Patient verbalizing understanding of instructions given. Anti-Coag Initial Assessment Social Hx Patient Tobacco Use Status: Never used Tobacco Tobacco use type: Cigarette alcohol intake: never Coding Level of Care Code Est Patient Level 1 Diagnoses Current use of anticoagulant therapy Z79.01 Results AMB INR Fingerstick AMB INR Fingerstick 3.1 Last Edit by Bethany Richardson RN on 02/28/25 11:24 interface delay Assessment & Plan Assessment & Plan (1) Current use of anticoagulant therapy: Code(s): Z79.01 - senior living (current) use of anticoagulants Category: Medical
--- OUTSIDE RECORDS SUMMARY | 2025-02-28 12:24 | XMS_ITS | Clinical Summary ---
Author Organization [facility] Address [address] [place] [address] Care Team Providers Care Software Engineering Supervisor Name Role Phone Unavailable Primary Care Provider [...]
== END 2025-02-28 11:39 | disposition home or self-care (01) ==
LOC: HO.ACS 11:17
PROVIDERS: PCP Physician Assistant; Visit Provider Internal Medicine Medical Oncology
DX: Z79.01 Long term (current) use of anticoagulants (principal)

== ENCOUNTER → 2025-02-28 11:17 | Outpatient (BNVA) | payer MEDICARE, SELFPAY | PROVIDERS: PCP Physician Assistant; Visit Provider Internal Medicine Medical Oncology | DX: I48.0 Paroxysmal atrial fibrillation (principal); Z79.01 Long term (current) use of anticoagulants; Z51.81 Encounter for therapeutic drug level monitoring | CPT/HCPCS: 85610; 99211 ==

== ENCOUNTER 2025-03-10 09:02 | Observation (INO) | payer MEDICARE, SELFPAY ==
--- OUTSIDE RECORDS SUMMARY | 2023-10-26 05:30 | XMS_ITS ---
Author Organization [facility] Address [address] [place] [id number] Care Team Providers Care Laboratory Helper Name Role Phone Brian ROGEL, Nicolás Primary Care Provider Alex Moore [phone] Encounters Encounter Location Date Provider Diagnosis [facility] [address] [place] [address] 10/26/2023 Alex Lancaster Plan Of Treatment No Information Progress Notes * Frankie VALLES DDOB: (85 yo M)Acc No.[id number]:10/26/2023 Progress Notes Patient: Nadege BARRERA Frankie Maloney Provider: Aure Lancaster DPM :1940 A ge:83 Y S ex:Male Date:10/26/2023 Address:[address] [place], [place] [id number] Pcp:Nicolás Torres MD Subjective: * Chief Complaints: * * Medical History: Objective: * Vitals: Assessment: Plan: * Treatment: * Images: * The named appointment provid er may or may not be the originator of this progress note, and it is not deemed complete until electronically signed by the appointment provider. Sign off status: Pending * Provider: Aure Lancaster DPM Date: 0 10/26/2023 Generated for Fauzia go/Yolette/eTransmitting on: 03/10/2025 10:43 AM EDT
[2025-03-10] VITALS (15 sets, daily range): BP systolic 127–175; BP diastolic 43–121; PULSE 56–70; RESP 12–20; TEMP 36.2–37.3; O2SAT 91–96; BMI 30.1; BMI 29.8
--- NOTE | 2025-03-10 09:18 | ED.EPISTAXIS ---
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 Patient reports that when he awoke this morning he noticed that his right nostril was bleeding. He states that over the last 3 days he has had multiple nosebleeds. No recent trauma or injury. He is not feeling lightheaded. He is asymptomatic however states that despite placing tissues up his nose his nose continues to bleed. Denies any headaches. No other complaints or concerns at this time. Location: Yes right nares Duration: Yes constant Pertinent past history: Yes history of previous nose bleed Context: Yes history of previous nose bleed and Yes warfarin use Treatment prior to arrival: Yes none Related Data Home Medications ?Medication ?Instructions ?Recorded ?Confirmed tamsulosin 0.4 mg capsule 0.4 mg PO DAILY 05/15/20 02/28/25 multivitamin (Daily Multi-Vitamin 1 tab PO DAILY 07/29/20 02/28/25 tablet) flaxseed oil 1,000 mg capsule 1,000 mg PO DAILY 11/16/20 02/28/25 glucosamine-chondroitin 250 mg-200 2 tab PO TID 11/16/20 02/28/25 mg tablet (Osteo Bi-Flex) omega-3 fatty acids 1,000 mg 1,000 mg PO DAILY 11/16/20 02/28/25 capsule (Fish Oil Concentrate) pioglitazone 30 mg tablet 30 mg PO DAILY 01/28/25 02/28/25 Previous Rx's ?Medication ?Instructions ?Recorded blood pressure test kit-large #1 ea 12/14/23 ([employer] Arm BP Monitor kit) metformin 1,000 mg tablet 1,000 mg PO BID #180 tabs 10/07/24 blood sugar diagnostic (FreeStyle #100 ea 10/22/24 Lite Strips) glimepiride 2 mg tablet 2 mg PO BID 90 days #180 tabs 12/18/24 gabapentin 100 mg capsule 100 mg PO TID 30 days #90 caps 12/23/24 empagliflozin 25 mg tablet 25 mg PO QAM #90 tabs 01/16/25 lisinopril 10 mg tablet 20 mg (2 x 10 mg) PO DAILY #90 tabs 01/28/25 warfarin 4 mg tablet 4 - 8 mg PO DAILY #180 tabs 03/05/25 Allergies Allergy/AdvReac Type Severity Reaction Status Date / Time environmental allergies AdvReac Intermediate Itchy Eyes Verified 03/10/25 09:08 Review of Systems Review of Systems: Yes all other systems are reviewed and are negative Constitutional: Constitutional: Reports as per [facility] Past Medical History Attestation statement: The following information was validated with the patient. Medical History Diabetes mellitus with coincident hypertension Diabetes mellitus H/O coronary angiogram Diabetes Surgical History History of appendectomy History of cholecystectomy History of tonsillectomy History of removal of calculus of renal pelvis through percutaneous nephrostomy Toe amputee Family History Family History Father CAD (coronary artery disease) Past heart attack Mother Diabetes Brother No problems noted. Brother Testicular cancer Brother S/P triple vessel bypass Daughter No problems noted. Daughter No problems noted. Maternal Grandmother Hypertension Social History Social History Housing: House Alcohol intake: never Patient Tobacco Use Status: Never used Tobacco Tobacco use type: Cigarette Smoked in Last 30 Days: No e-Cigarette/Vaping Use: Never Used Second Hand Smoke Exposure: No Use of substances other than those prescribed or required for medical reasons: No Advance Directives: Yes Advance Directives Information Provided: Yes Advance Directives on File: No Nutrition Risks: No Nutritional Risk service: No Current occupational status: retired Cognitive needs: No Hearing needs: No Vision needs: No Physical Exam Vital Signs: Vital Signs: Last Vital Signs Temp 98 F 03/10/25 09:07 Pulse 58 03/10/25 11:57 Resp 12 03/10/25 11:57 BP 161/51 H 03/10/25 11:57 Pulse Ox 96 03/10/25 11:16 O2 Del Method Room Air 03/10/25 11:16 BMI result Body Mass Index 30.1 Course Reevaluation(s) Reevaluation #1: I evaluated patient at bedside of the Madhuri, assisted with placement of 7.5 cm rapid rhino rocket right [place], discussion for warfarin reversal with FFP and vitamin K, and recommend contacting [facility] as we do not have ENT on-call for admission Time: 11:32 Medications Administered Discontinued Medications Generic Name Dose Route Start Last Admin Trade Name Hollie PRN Reason Stop Dose Admin Phytonadione 10 mg/ Sodium 51 mls @ 51 mls/hr 03/10/25 10:38 03/10/25 11:19 Chloride IV 03/10/25 11:37 51 mls/hr ONCE ONE Administration Oxymetazoline HCl 2 spray 03/10/25 09:40 03/10/25 10:40 Oxymetazoline Hcl 0.05 % Nasal 15 Ml [place] NOSTRIL-B 03/10/25 09:41 2 spray ONCE ONE Administration Silver Nitrate 1 appl 03/10/25 11:04 03/10/25 11:22 Silver Nitrate Applicator Stick..Ea. TOPICAL 03/10/25 11:05 1 appl ONCE ONE Administration Medical Decision Making Medical Decision Making MDM Narrative: Patient is currently on clopidogrel, warfarin This is a 85-year-old male who presents emergency department with concerns of epistaxis. Patient is a poor historian however does report that he has had his warfarin adjusted, as he was aware that his INR was too high. He states that he was previously on warfarin 4 milligrams 2 times a day, however is now adjusting this, states that he has been like this for several weeks. He states that over the last 3 days he has had intermittent nosebleeds. He states that since 7 o'clock this morning he has had a continued nosebleed with clots. On arrival, patient has a neurologically intact, no focal deficits on examination, vital signs within normal limits. There is obvious nose bleed noted from the right nare. Given that he is on warfarin, I checked his INR which was elevated at 19.6. He has no obvious evidence of hemorrhage at this time. He is neurologically intact. Abdomen is soft and nontender. He reports no severe headache, dizziness, chest pain, shortness for breath, abdominal pain, hematuria, bloody or black stool. 11:24 AM 03/10/2025 (Madhuri Pavon PA-C): My attending physician and I, Dr. Michelle flushed the nose with normal saline inpatient blew out a large clot from his nose. We then flushed it again, and placed Afrin. Clamp applied. Patient continues to bleed. Then silver nitrate stick was applied, unable to stop the bleed therefore we placed a 7-1/2 rhino rocket into the right nare. Bleeding controlled. Oropharynx without any evidence of posterior bleed. I consulted over to [facility] ENT and spoke to Dr. Corbett They are at code capacity, and there is no ENT interventions recommended at this time. Given that bleed has been controlled with rhino rocket, they are recommending follow-up outpatient in 3-4 days to have the rhino rocket removed. They recommend Keflex for prevention. They state that this is not a ENT issue rather a clotting issue therefore patient may be able to be admitted here. I spoke to the hospitalist, transfer of care initiated through here at [facility]. Differential Diagnosis Differential Diagnoses: The differential diagnosis associated with the presentation includes Epistaxis, subtherapeutic INR, Consult Healthcare Provider Management of the patient was discussed with: Ferryboat T[employer] Dr. Corbett - ENT at [facility] Lab Data MDM Lab Attestation statement: I reviewed the patient's lab results. Normocytic anemia with an H&H of 8.6/25.2, previous H&H around 03/30. Chemistry revealing CKD at 1.6, improved from previous. 03/10/25 09:44 03/10/25 09:44 Labs: Lab Results 03/10/25 03/10/25 Range/Units 09:44 11:25 WBC 4.3 L (4.8-10.8) X10*3/uL RBC 2.66 L (4.60-5.80) X10*6/uL Hgb 8.6 L (14.0-18.0) g/dl Hct 25.2 L (42.0-52.0) % MCV 94.7 (80.0-98.0) fL MCH 32.3 (27.0-33.0) pg MCHC 34.1 (31.0-36.0) g/dl RDW 13.6 (11.0-16.0) % Plt Count 112 L (160-400) X10*3/uL MPV 10.7 (9.4-12.4) fL Immature Gran % (Auto) 0.5 H (0.0-0.4) % Neut % (Auto) 67.9 (45-73) % Lymph % (Auto) 19.2 L (20-40) % [place] % (Auto) 9.3 (2-11) % Eos % (Auto) 2.6 (0-4) % Baso % (Auto) 0.5 (0-2) % Lymph # (Auto) 0.8 L (1.2-4.9) X10*3/uL [place] # (Auto) 0.4 (0.1-1.2) X10*3/uL Eos # (Auto) 0.1 (0.0-0.4) X10*3/uL Baso # (Auto) 0.0 (0.0-0.2) X10*3/uL Abs Immat Gran (auto) 0.02 (0.00-0.03) X10*3/uL Absolute Neuts (auto) 2.9 (2.0-8.3) x10*3/uL Absolute Nucleated RBC 0.000 (0.0-0.012) X10*3/uL Nucleated RBC % (auto) 0.0 (0.0-0.2) /100WBC PT 225.7 H (10.9-12.4) SEC INR 19.6 H* (0.9-1.1) Sodium 139 (135-145) mmol/L Potassium 4.9 (3.3-5.1) mmol/L Chloride 111 H (96-108) mmol/L Carbon Dioxide 21 L (22-29) mmol/L Anion Gap 12 (12-20) BUN 31 H (9-16) mg/dL Creatinine 1.67 H (0.5-1.4) mg/dL Estim Creat Clear Calc 35.8 Estimated GFR 39 Random Glucose 222 H (60-115) mg/dL Calcium 8.3 L (8.4-10.2) mg/dL Total Bilirubin 0.4 (0.0-1.0) mg/dL AST 24 (5-37) U/L ALT 15 (0-40) U/L Alkaline Phosphatase 57 (39-117) U/L Total Protein 5.8 L (6.5-8.0) g/dL Albumin 3.5 (3.5-5.0) g/dL Blood Type A Positive Procedures Epistaxis Control Time Out Performed: Yes Nostril: Yes right Nose prepped with: Yes oxymetazoline Direct inspection: Yes anterior source identified Direct inspection method: Yes nasal speculum and Yes otoscope Clots removed by: Yes blowing nose and Yes manually Epistaxis treatment: Yes silver nitrate cautery Results of treatment: Yes treatment well tolerated and Yes continued epistaxis Complications: Yes continued epistaxis Critical Care Time Critical Care Time Critical Care Time: Yes Total Critical Care Time: 70 Attestation: I have personally provided critical care time exclusive of time spent on separately billable procedures. Time includes review of lab data, radiology results, discussion with consultants, and monitoring for potential decompensation. Intervention performed as documented. Discharge Plan Discharge Clinical Impression: Epistaxis, Elevated international normalized ratio (INR) Prescriptions: No Action metformin 1,000 mg tablet 1,000 mg PO BID Qty: 180 3RF (DME) FreeStyle Lite Strips Strip See Rx Instructions .ROUTE .COMPLEX Qty: 100 0RF Dose Instruction: USE 1 STRIP TO CHECK BLOOD GLUCOSE ONCE DAILY Rx Instructions: USE 1 STRIP TO CHECK BLOOD GLUCOSE ONCE DAILY glimepiride 2 mg tablet 2 mg PO BID 90 Days Qty: 180 0RF gabapentin 100 mg capsule 100 mg PO TID 30 Days Qty: 90 2RF pioglitazone 30 mg tablet 30 mg PO DAILY lisinopril 10 mg tablet 20 mg PO DAILY Qty: 90 3RF warfarin 4 mg tablet 4 - 8 mg PO DAILY Qty: 180 0RF Protocol: Dose Management Condition: Monday (Week One) Dose/Route: 6 mg Instruction: 1.5 x 4 mg tablets Condition: Monday Dose/Route: 4 mg Instruction: 1 x 4 mg tablet Condition: Monday Dose/Route: 6 mg Instruction: 1.5 x 4 mg tablets Condition: Monday Dose/Route: 4 mg Instruction: 1 x 4 mg tablet Condition: Dose/Route: 6 mg Instruction: 1.5 x 4 mg tablets Condition: Monday Dose/Route: 4 mg Instruction: 1 x 4 mg tablet Condition: Monday Dose/Route: 6 mg Instruction: 1.5 x 4 mg tablets Condition: Monday (Week Two) Dose/Route: 4 mg Instruction: 1 x 4 mg tablet Condition: Monday Dose/Route: 6 mg Instruction: 1.5 x 4 mg tablets Condition: Monday Dose/Route: 4 mg Instruction: 1 x 4 mg tablet Condition: Monday Dose/Route: 6 mg Instruction: 1.5 x 4 mg tablets Condition: Dose/Route: 4 mg Instruction: 1 x 4 mg tablet Condition: Monday Dose/Route: 6 mg Instruction: 1.5 x 4 mg tablets Condition: Monday Dose/Route: 4 mg Instruction: 1 x 4 mg tablet Protocol Text: Adjustment Start Date: Monday02/28/25 INR Value: 3.1 INR Date: 02/28/25 Recheck Date: 03/21/25 multivitamin [Daily Multi-Vitamin] Tablet 1 tab PO DAILY omega-3 fatty acids [Fish Oil Concentrate] 1,000 mg capsule 1,000 mg PO DAILY glucosamine-chondroitin [Osteo Bi-Flex] 250-200 mg tablet 2 tab PO TID Rx Instructions: give after food/meal flaxseed oil 1,000 mg capsule 1,000 mg PO DAILY Rx Instructions: administer with a meal tamsulosin 0.4 mg capsule 0.4 mg PO DAILY (DME) blood pressure test kit-large [[employer] Arm BP Monitor] Kit See Rx Instructions .Route Qty: 1 0RF Rx Instructions: As directed empagliflozin 25 mg tablet 25 mg PO QAM Qty: 90 3RF Print Language: Mohawk
[2025-03-10 09:48] LABS: MANUAL DIFF FLAG NO
[2025-03-10 09:49] LABS: Hematocrit 25.2 % (42.0-52.0); Hemoglobin 8.6 g/dl (14.0-18.0); Imm Gran Abs Auto 0.02 X10*3/uL (0.00-0.03); Imm Gran Pct Auto 0.5 % (0.0-0.4); Lymphocytes Absolute Auto 0.8 X10*3/uL (1.2-4.9); Mean Corpuscular HGB Conc 34.1 g/dl (31.0-36.0); Mean Corpuscular Hemoglobin 32.3 pg (27.0-33.0); Mean Corpuscular Volume 94.7 fL (80.0-98.0); NRBC Abs Auto 0.000 X10*3/uL (0.0-0.012); NRBC Pct Auto 0.0 /100WBC (0.0-0.2); Platelet Count 112 X10*3/uL (160-400); Red Blood Count 2.66 X10*6/uL (4.60-5.80); White Blood Count 4.3 X10*3/uL (4.8-10.8)
[2025-03-10 10:03] LABS: Alanine Aminotransferase 15 U/L (0-40); Albumin Level 3.5 g/dL (3.5-5.0); Alkaline Phosphatase 57 U/L (39-117); Anion Gap 12 (12-20); Aspartate Amino Transferase 24 U/L (5-37); Blood Urea Nitrogen 31 mg/dL (9-16); Calcium 8.3 mg/dL (8.4-10.2); Carbon Dioxide 21 mmol/L (22-29); Chloride 111 mmol/L (96-108); Creatinine Clr Calc Pharmacy 35.8; Estimated Glomerular Filt Rate 39; Potassium 4.9 mmol/L (3.3-5.1); Sodium 139 mmol/L (135-145); Total Protein 5.8 g/dL (6.5-8.0)
[2025-03-10 10:04] LABS: Prothrombin Time 225.7 SEC (10.9-12.4)
[2025-03-10 10:05] LABS: INTERNATIONAL NORM RATIO 19.6 (0.9-1.1)
--- NOTE | 2025-03-10 10:18 | PC.NURSE ---
provider is aware of critical labs, pt has been changed to hospital attire, we identified a small quarter sized bruise on his L hip, no other signs of bleeding were noted. he was found to have a small amount of blood on his underwear but we reports this is from is nose dripping on them this am before he got dressed. he denies blood in stool or urine, he denies any symptoms.
[2025-03-10] MEDS: Oxymetazoline HCl 0.05 % Nasal 15 ML SPRAY 2 SPRAY NOSTRIL-B (10:40)
--- OUTSIDE RECORDS SUMMARY | 2025-03-10 10:42 | XMS_ITS | Patient Health Record ---
Author Organization [facility] Address [address] [place] [address] Care Team Providers Care Collar Stay Fuser Tender Name Role Phone Nicolás Torres MD Primary Care Provider Juanito Manriquez Unavailable [phone] Reason For Referral No Information Medications Medication [...] Problem Long-term current use of drug therapy (056567354) Encounter for long-term (current) use of other medications (V58.69) Active confirmed Problem Colon cancer screening (107358611) Colon cancer screening (V76.51) Active confirmed Problem History of adenomatous polyp of colon (847729047) History of adenomatous polyp of colon (V12.72) Active confirmed Plan Of Treatment Future Test Test Name Order Date COLONOSCOPY 04/26/2012 Insurance Providers Payer Name Payer Address Payer Phone Subscriber Number Group Number Insured Name Patient Relationship to Insured Coverage Start Date Coverage End Date [facility] [address] [place] [phone] [id number] ALKA LEES Self - patient is the insured Medical (General) History Medical History History ICD Code diabetes hypertension Denies [place],CVA,Lung disease,renal disease Tubular adenomas 2000 Kidney stone--[facility] Surgical History Surgery Date(Month/Year) appendectomy cholecystectomy 1967 tonsillectomy
--- OUTSIDE RECORDS SUMMARY | 2025-03-10 10:43 | XMS_ITS | Clinical Summary ---
Author Organization [facility] ity Address [address] [place] [address] Care Team Providers Care Kiln Mechanic Name Role Phone Unavailable Primary Care Provider [...]
--- OUTSIDE RECORDS SUMMARY | 2025-03-10 10:43 | XMS_ITS | Patient Health Record ---
Author Organization [facility] [place] Address [address] [place] [address] Care Team Providers Care Residential Green Building Designer Name Role Phone Nicolás Torres MD Primary Care Provider Alex Moore Unavailable [phone] Reason For Referral No Information Plan Of Treatment No Information Insurance Providers Payer Name Payer Address Payer Phone Subscriber Number Group Number Insured Name Patient Relationship to Insured Coverage Start Date Coverage End Date [employer] [place] Medicare Advantage [address] [facility] [place] [address] [phone] [id number] Frankie Valles Self - patient is the insured
[2025-03-10] MEDS: Silver Nitrate Applicator STICK..EA. 1 APPL TOPICAL (11:22)
--- NOTE | 2025-03-10 12:15 | PM.IMHP ---
History of Present Illness Date of Service: 03/10/25 Attending physician on admission: Parvez Silveira Chief Complaint: Nose bleed Pt is an 85-year-old male with a PMH significant for paroxysmal AFib on warfarin, HTN, HLD, PVD on Plavix, jvf-irfgyro-odxigtqsq type 2 diabetes,?CKD3, and BPH who presents to the ED with?an intractable nosebleed x3 days. Pt reports that he has woken up for the past 3 days with nosebleeds. On Monday and Monday he was able to stop the bleeding with a Kleenex, though this morning bleeding would not stop, which prompted his visit to the emergency room. Denies any pain to the nose, face, or head. No trauma or known injury. Denies significant hx of previous episodes of epistaxis. No lightheadedness or dizziness. Of note, pt is on both Plavix and Coumadin. Pt in his were overall poor historians regarding patient's medication and frequency abuse. Pt apparently has had some recent changes to his Coumadin. After discussion with his , it appears likely pt has been erroneously taking Coumadin twice a day recently. In the ED pt's vitals were significant for hypertension to 61/50. Labs were significant for H&H stable 8.6/25.2, INR 19.6, otherwise grossly unremarkable and baseline for pt. No significant electrolyte abnormalities. No leukocytosis. Creatinine stable and baseline at 1.67. Pt was treated in the ED with oxymetazoline, phytonadione, silver nitrate, and had a rhino rocket placed in right nostril. Pt is admitted to the hospital under observation for treatment and further evaluation of intractable epistaxis and supratherapeutic INR. [facility] Medical History Diabetes mellitus with coincident hypertension Diabetes mellitus H/O coronary angiogram Diabetes Family History Father CAD (coronary artery disease) Past heart attack Mother Diabetes Brother No problems noted. Brother Testicular cancer Brother S/P triple vessel bypass Daughter No problems noted. Daughter No problems noted. Maternal Grandmother Hypertension Surgical History History of appendectomy History of cholecystectomy History of tonsillectomy History of removal of calculus of renal pelvis through percutaneous nephrostomy Toe amputee Social History Housing: House Alcohol intake: never Patient Tobacco Use Status: Never used Tobacco Tobacco use type: Cigarette Smoked in Last 30 Days: No e-Cigarette/Vaping Use: Never Used Second Hand Smoke Exposure: No Use of substances other than those prescribed or required for medical reasons: No Advance Directives: Yes Advance Directives Information Provided: Yes Advance Directives on File: No Nutrition Risks: No Nutritional Risk service: No Current occupational status: retired Cognitive needs: No Hearing needs: No Vision needs: No Meds Allergies Allergy/AdvReac Type Severity Reaction Status Date / Time environmental allergies AdvReac Intermediate Itchy Eyes Verified 03/10/25 09:08 Active Medications: Current Medications Dextrose (Dextrose 50 % 25 Gm/50 Ml Syringe) 25 gm IVPUSH Q15M PRN; Protocol PRN Reason: per Hypoglycemia Standing Ord. Glucose (Glucose Gel 15 Gm Gel..Gram.) 15 gm PO Q15M PRN; Protocol PRN Reason: per Hypoglycemia Standing Ord. Insulin Human Lispro (Insulin Lispro 100 Unit/Ml 3 Ml Vial) 0 unit [facility]; Protocol Home Medications ?Medication ?Instructions ?Recorded ?Confirmed ?Last Taken ?Type tamsulosin 0.4 mg capsule 0.4 mg PO DAILY 05/15/20 03/10/25 03/10/25 History multivitamin (Daily Multi-Vitamin 1 tab PO DAILY 07/29/20 03/10/25 03/10/25 History tablet) amlodipine 5 mg tablet 5 mg PO DAILY 03/10/25 03/10/25 Unknown History atenolol 25 mg tablet 25 mg PO DAILY 03/10/25 03/10/25 Unknown History atorvastatin 20 mg tablet 20 mg PO DAILY 03/10/25 03/10/25 Unknown History clopidogrel 75 mg tablet 75 mg PO DAILY 03/10/25 03/10/25 03/10/25 History finasteride 5 mg tablet 5 mg PO DAILY 03/10/25 03/10/25 Unknown History omega-3 fatty acids 1,000 mg 1,000 mg PO DAILY 03/10/25 03/10/25 03/10/25 History capsule pioglitazone 30 mg tablet 30 mg PO DAILY 03/10/25 03/10/25 03/10/25 History warfarin 4 mg tablet 4 mg PO SUTUTHSA@1800 03/10/25 03/10/25 03/10/25 History warfarin 4 mg tablet 6 mg PO MOWE@1800 03/10/25 03/10/25 03/07/25 History Physical Exam Vital Signs and Narrative: Vital Signs: Last Vital Signs Temp 97.6 F 03/10/25 12:13 Pulse 61 03/10/25 12:13 Resp 16 03/10/25 12:13 BP 152/51 H 03/10/25 12:13 Pulse Ox 93 03/10/25 12:13 O2 Del Method Room Air 03/10/25 12:13 BMI result Body Mass Index 30.1 General: AOx3, no acute distress ENT: Right nostril with Rhino Rocket in place Resp: CTA bilaterally CVS: S1, S2, RRR GI: +BS, NT, no distention Skin: Warm, dry Neuro: Cranial nerves II-XII grossly intact bilaterally. Motor grossly intact bilaterally Extremities: No edema Psych: Appropriate affect Results Labs 03/10/25 09:44 03/10/25 09:44 Labs: Laboratory Results - last 24 hr 03/10/25 03/10/25 09:44 11:25 MCV 94.7 MCH 32.3 MCHC 34.1 RDW 13.6 Plt Count 112 L MPV 10.7 Immature Gran % (Auto) 0.5 H Neut % (Auto) 67.9 Lymph % (Auto) 19.2 L Franklin % (Auto) 9.3 Eos % (Auto) 2.6 Baso % (Auto) 0.5 Lymph # (Auto) 0.8 L Franklin # (Auto) 0.4 Eos # (Auto) 0.1 Baso # (Auto) 0.0 Abs Immat Gran (auto) 0.02 Absolute Neuts (auto) 2.9 Absolute Nucleated RBC 0.000 Nucleated RBC % (auto) 0.0 PT 225.7 H INR 19.6 H* Anion Gap 12 Estim Creat Clear Calc 35.8 Estimated GFR 39 Random Glucose 222 H Calcium 8.3 L Total Bilirubin 0.4 AST 24 ALT 15 Alkaline Phosphatase 57 Total Protein 5.8 L Albumin 3.5 Blood Type A Positive Antibody Screen NEGATIVE Assessment and Plan (1) Epistaxis: Status: Acute (2) Elevated international normalized ratio (INR): Status: Acute Plan Pt is an 85-year-old male with a PMH significant for paroxysmal AFib on warfarin, HTN, HLD, PVD on Plavix, jve-denqndw-wuvfhbszx type 2 diabetes,?CKD3, and BPH who presents to the ED with?an intractable nosebleed x3 days. Pt is admitted to the hospital under observation for treatment and further evaluation of intractable epistaxis and supratherapeutic INR. Intractable epistaxis in the setting of supratherapeutic INR Morning nosebleeds x3 days; today intractable INR 19.6, likely secondary to dosing Coumadin twice a day Given FFP and Vitamin K in the ED; Rhino Rocket placed Hold Coumadin and Plavix for now Follow INR, CBC Will need to follow up with ENT outpatient in 3-4 days for RR removal Paroxysmal AFib Continue atenolol Hold warfarin HTN continue amlodipine, atenolol, lisinopril Peripheral vascular disease Continue statin Hold Plavix for now due to epistaxis and elevated INR BPH Continue finasteride and tamsulosin Uff-eqqtlrl-rlqhkfybx type 2 diabetes Hold metformin Continue glimepiride, pioglitazone Sliding-scale insulin, diabetic diet Full Code Attending:?Dr. Silveira DVT Prophylaxis: On warfarin Pt is admitted to the hospital under observation for monitoring of supratherapeutic INR and CBC in setting of intractable epistaxis. Quality Stroke Does the patient have a stroke diagnosis?: No VTE Prior VTE?: No VTE Risk Level:: Medical - moderate - high VTE Device Contraindication: Treatment Not Indicated VTE Drug Contraindication: N/A - Med Ordered
[2025-03-10 12:30] LABS: Partial Thromboplastin Time 82.5 SEC (26.7-34.1)
[2025-03-10 13:06] LABS: Glucose, Whole Blood 224 mg/dL (60-115)
--- NOTE | 2025-03-10 14:40 | PHA.MEDREC ---
Addendum entered by Carmelita Martinez [facility] 03/10/25 15:29: Reviewed by [facility] Original Note: Pharmacy Consult ? Medication Reconciliation Pharmacy has completed the medication reconciliation. Spoke with pt spouse at bedside and she had a list on hand we utilized to confirm the med rec. Pt was suppose to stop taking Pioglitazone and start taking Jardiance but states the Co-Pay for Jardiance was too much so they continued to take Pioglitazone and informed the Dr. Pt confirmed he takes Warfarin 4mg tabs 1 tab (4mg) SUTUTHSA and 1.5 tabs (6mg) MOWEFR. Spouse not pt sure if he was still taking Amlodipine 5mg ( 02/16 for 90), Atenolol 25mg (01/24 for 90), Atorvastatin 20mg ( 02/16 for ) and Finasteride 5mg ( 01/07 for ); I kept them in the med rec since they were recently filled in claims.
[2025-03-10 17:01] LABS: Glucose, Whole Blood 253 mg/dL (60-115)
[2025-03-10 17:23] LABS: Hematocrit 25.7 % (42.0-52.0); Hemoglobin 8.8 g/dl (14.0-18.0); Mean Corpuscular HGB Conc 34.2 g/dl (31.0-36.0); Mean Corpuscular Hemoglobin 32.4 pg (27.0-33.0); Mean Corpuscular Volume 94.5 fL (80.0-98.0); NRBC Abs Auto 0.000 X10*3/uL (0.0-0.012); NRBC Pct Auto 0.0 /100WBC (0.0-0.2); Platelet Count 120 X10*3/uL (160-400); Red Blood Count 2.72 X10*6/uL (4.60-5.80); White Blood Count 5.8 X10*3/uL (4.8-10.8)
[2025-03-10 19:40] LABS: INTERNATIONAL NORM RATIO 2.2 (0.9-1.1); Prothrombin Time 25.3 SEC (10.9-12.4)
[2025-03-10 20:00] LABS: Glucose, Whole Blood 237 mg/dL (60-115)
[2025-03-10 20:34] LABS: Glucose, Whole Blood 228 mg/dL (60-115)
[2025-03-10] MEDS: 0.9 % Sodium Chloride Flush 3 ML SYRINGE IVFLUSH (23:36)
[2025-03-11 03:20] VITALS: BP 153/63; PULSE 60; RESP 17; TEMP 37.2; O2SAT 91
[2025-03-11 06:56] LABS: Hematocrit 25.5 % (42.0-52.0); Hemoglobin 8.8 g/dl (14.0-18.0); Mean Corpuscular HGB Conc 34.5 g/dl (31.0-36.0); Mean Corpuscular Hemoglobin 32.2 pg (27.0-33.0); Mean Corpuscular Volume 93.4 fL (80.0-98.0); NRBC Abs Auto 0.000 X10*3/uL (0.0-0.012); NRBC Pct Auto 0.0 /100WBC (0.0-0.2); Platelet Count 128 X10*3/uL (160-400); Red Blood Count 2.73 X10*6/uL (4.60-5.80); White Blood Count 6.9 X10*3/uL (4.8-10.8)
[2025-03-11 07:26] LABS: INTERNATIONAL NORM RATIO 1.3 (0.9-1.1); Prothrombin Time 15.4 SEC (10.9-12.4)
[2025-03-11 07:39] LABS: Glucose, Whole Blood 110 mg/dL (60-115)
[2025-03-11 07:44] VITALS: BP 172/77; PULSE 62; RESP 18; TEMP 37.7; O2SAT 90
[2025-03-11 07:54] LABS: Anion Gap 11 (12-20); Blood Urea Nitrogen 27 mg/dL (9-16); Calcium 8.6 mg/dL (8.4-10.2); Carbon Dioxide 21 mmol/L (22-29); Chloride 110 mmol/L (96-108); Creatinine Clr Calc Pharmacy 39.1; Estimated Glomerular Filt Rate 44; Potassium 4.1 mmol/L (3.3-5.1); Sodium 138 mmol/L (135-145)
[2025-03-11] MEDS: 0.9 % Sodium Chloride Flush 3 ML SYRINGE IVFLUSH (09:35)
--- NOTE | 2025-03-11 10:47 | P.DS_ITS ---
DS: Providers Provider Date of Service: 03/11/25 Date of admission: 03/10/25 11:55 Date of discharge: 03/11/25 Primary care physician: Vinod Mary PA-C DS: Diagnosis Discharge Diagnosis (1) Epistaxis: Status: Acute (2) Elevated international normalized ratio (INR): Status: Acute DS: Summary Hospital Course Hospital Course: From admission HPI: Date of Service: 03/10/25 Attending physician on admission: Parvez Silveira Chief Complaint: Nose bleed Pt is an 85-year-old male with a PMH significant for paroxysmal AFib on warfarin, HTN, HLD, PVD on Plavix, wsz-quntihs-qoihcbbou type 2 diabetes,?CKD3, and BPH who presents to the ED with?an intractable nosebleed x3 days. Pt reports that he has woken up for the past 3 days with nosebleeds. On Monday and Monday he was able to stop the bleeding with a Kleenex, though this morning bleeding would not stop, which prompted his visit to the emergency room. Denies any pain to the nose, face, or head. No trauma or known injury. Denies significant hx of previous episodes of epistaxis. No lightheadedness or dizziness. Of note, pt is on both Plavix and Coumadin. Pt in his were overall poor historians regarding patient's medication and frequency abuse. Pt apparently has had some recent changes to his Coumadin. After discussion with his , it appears likely pt has been erroneously taking Coumadin twice a day recently. In the ED pt's vitals were significant for hypertension to 61/50. Labs were significant for H&H stable 8.6/25.2, INR 19.6, otherwise grossly unremarkable and baseline for pt. No significant electrolyte abnormalities. No leukocytosis. Creatinine stable and baseline at 1.67. Pt was treated in the ED with oxymetazoline, phytonadione, silver nitrate, and had a rhino rocket placed in right nostril. Pt is admitted to the hospital under observation for treatment and further evaluation of intractable epistaxis and supratherapeutic INR. Hospital course Pt was admitted for supratherapeutic INR and monitoring of H&H in the setting of Coumadin noncompliance. Patient's INR improved to 1.3 this morning after vitamin K and FFP. H&H remained stable and around baseline at 8.8/25.5. Hospital stay was overall uncomplicated with no acute events and no recurrent bleeding. Given patient's difficulty with compliance with warfarin, will discontinue and switch pt to Eliquis 2.5 mg b.i.d.. For epistaxis, pt should follow up with ENT in 2-3 days for outpatient removal. Pt should resume all home medications. For paroxysmal AFib, continue atenolol, stop warfarin, and start Eliquis 2.5 mg b.i.d. For HTN continue amlodipine, atenolol, and lisinopril For peripheral vascular disease continue atorvastatin and clopidogrel For BPH continue finasteride and tamsulosin For jju-nsswqfv-zjllfellj type 2 diabetes, continue metformin, glimepiride, and pioglitazone Pt encouraged to adhere to a diabetic diet and diabetic snacking Time Attestation Discharge Coordination Time (in mins): 35 Quality: Safe Use of Opioids Does Pt have an Active Cancer Diagnosis on the Problem List?: No Quality: Stroke Does the patient have a stroke diagnosis?: No Physical Exam Exam: Exam: General: AOx3, no acute distress ENT: Right nostril with Rhino Rocket in place Resp: CTA bilaterally CVS: Irregularly irregular rhythm GI: +BS, NT, no distention Skin: Warm, dry Neuro: Cranial nerves II-XII grossly intact bilaterally. Motor grossly intact bilaterally Extremities: No edema Psych: Appropriate affect Vital Signs: Vital Signs: Last Vital Signs Temp 99.8 F 03/11/25 07:44 Pulse 62 03/11/25 07:44 Resp 18 03/11/25 07:44 BP 172/77 H 03/11/25 07:44 Pulse Ox 90 L 03/11/25 07:44 O2 Del Method Room Air 03/11/25 07:44 BMI result Body Mass Index 29.8 DS: Data Data Completed and Pending Labs on day of discharge: Laboratory Results - last 24 hr 03/10/25 03/10/25 03/10/25 09:44 11:25 13:03 WBC RBC Hgb Hct MCV MCH MCHC RDW Plt Count MPV Absolute Nucleated RBC Nucleated RBC % (auto) PT INR APTT 82.5 H* Sodium Potassium Chloride Carbon Dioxide Anion Gap BUN Creatinine Estim Creat Clear Calc Estimated GFR POC Glucose 224 H Random Glucose Calcium Blood Type A Positive Antibody Screen NEGATIVE 03/10/25 03/10/25 03/10/25 16:56 17:02 19:24 WBC 5.8 RBC 2.72 L Hgb 8.8 L Hct 25.7 L MCV 94.5 MCH 32.4 MCHC 34.2 RDW 13.8 Plt Count 120 L MPV 10.8 Absolute Nucleated RBC 0.000 Nucleated RBC % (auto) 0.0 PT 25.3 H D INR 2.2 H D APTT Sodium Potassium Chloride Carbon Dioxide Anion Gap BUN Creatinine Estim Creat Clear Calc Estimated GFR POC Glucose 253 H Random Glucose Calcium Blood Type Antibody Screen 03/10/25 03/10/25 03/11/25 19:56 20:19 06:04 WBC 6.9 RBC 2.73 L Hgb 8.8 L Hct 25.5 L MCV 93.4 MCH 32.2 MCHC 34.5 RDW 13.5 Plt Count 128 L MPV 11.2 Absolute Nucleated RBC 0.000 Nucleated RBC % (auto) 0.0 PT 15.4 H D INR 1.3 H APTT Sodium 138 Potassium 4.1 Chloride 110 H Carbon Dioxide 21 L Anion Gap 11 L BUN 27 H Creatinine 1.52 H Estim Creat Clear Calc 39.1 Estimated GFR 44 POC Glucose 237 H 228 H Random Glucose 124 H Calcium 8.6 Blood Type Antibody Screen 03/11/25 07:11 WBC RBC Hgb Hct MCV MCH MCHC RDW Plt Count MPV Absolute Nucleated RBC Nucleated RBC % (auto) PT INR APTT Sodium Potassium Chloride Carbon Dioxide Anion Gap BUN Creatinine Estim Creat Clear Calc Estimated GFR POC Glucose 110 Random Glucose Calcium Blood Type Antibody Screen Discharge Plan Discharge Anticipated Discharge Date/Time: 03/11/25 10:38 Patient Disposition: Home, Self-Care Referrals: Vinod Mary PA-C [Primary Care Provider, Internal Medicine] - 1 Week Discharge Medications: New Eliquis 2.5 mg tablet 2.5 mg PO BID Qty: 180 0RF Rx Instructions: Take one tablet twice a day Continued metformin 1,000 mg tablet 1,000 mg PO BID Qty: 180 3RF (DME) FreeStyle Lite Strips Strip See Rx Instructions .ROUTE .COMPLEX Qty: 100 0RF Dose Instruction: USE 1 STRIP TO CHECK BLOOD GLUCOSE ONCE DAILY Rx Instructions: USE 1 STRIP TO CHECK BLOOD GLUCOSE ONCE DAILY glimepiride 2 mg tablet 2 mg PO BID 90 Days Qty: 180 0RF gabapentin 100 mg capsule 100 mg PO TID 30 Days Qty: 90 2RF lisinopril 10 mg tablet 20 mg PO DAILY Qty: 90 3RF atorvastatin 20 mg tablet 20 mg PO DAILY atenolol 25 mg tablet 25 mg PO DAILY clopidogrel 75 mg tablet 75 mg PO DAILY amlodipine 5 mg tablet 5 mg PO DAILY finasteride 5 mg tablet 5 mg PO DAILY pioglitazone 30 mg tablet 30 mg PO DAILY omega-3 fatty acids 1,000 mg Capsule 1,000 mg PO DAILY multivitamin [Daily Multi-Vitamin] Tablet 1 tab PO DAILY tamsulosin 0.4 mg capsule 0.4 mg PO DAILY (DME) blood pressure test kit-large [MobilePeak Arm BP Monitor] Kit See Rx Instructions .Route Qty: 1 0RF Rx Instructions: As directed Discontinued warfarin 4 mg tablet 6 mg PO MOWEFR@1800 warfarin 4 mg tablet 4 mg PO SUTUTHSA@1800 Protocol: Dose Management Condition: Monday (Week One) Dose/Route: 6 mg Instruction: 1.5 x 4 mg tablets Condition: Monday Dose/Route: 4 mg Instruction: 1 x 4 mg tablet Condition: Monday Dose/Route: 6 mg Instruction: 1.5 x 4 mg tablets Condition: Monday Dose/Route: 4 mg Instruction: 1 x 4 mg tablet Condition: Dose/Route: 6 mg Instruction: 1.5 x 4 mg tablets Condition: Monday Dose/Route: 4 mg Instruction: 1 x 4 mg tablet Condition: Monday Dose/Route: 6 mg Instruction: 1.5 x 4 mg tablets Condition: Monday (Week Two) Dose/Route: 4 mg Instruction: 1 x 4 mg tablet Condition: Monday Dose/Route: 6 mg Instruction: 1.5 x 4 mg tablets Condition: Monday Dose/Route: 4 mg Instruction: 1 x 4 mg tablet Condition: Monday Dose/Route: 6 mg Instruction: 1.5 x 4 mg tablets Condition: Dose/Route: 4 mg Instruction: 1 x 4 mg tablet Condition: Monday Dose/Route: 6 mg Instruction: 1.5 x 4 mg tablets Condition: Monday Dose/Route: 4 mg Instruction: 1 x 4 mg tablet Protocol Text: Adjustment Start Date: Monday02/28/25 INR Value: 3.1 INR Date: 02/28/25 Recheck Date: 03/21/25 Discharge Orders: Discharge Order (Routine); Ordered 03/11/25 Ordered By: Km Holland Activity on Discharge: As tolerated Stand Alone Forms: Patient Portal Discharge page Print Language: Macedonian Care Plan Goals: See below Health Concerns: Elevated INR Epistaxis Intractable bleeding Plan of Treatment: You were admitted to the hospital for treatment of intractable nosebleed in the setting of elevated INR likely from taking warfarin twice a day. Your nosebleed was stopped with a rhino rocket placed in the ED, and your INR came down after receiving vitamin K and fresh frozen plasma. Blood levels have remained stable. Your Coumadin has been stopped and switched to Eliquis which does not require INR monitoring. -- for AFib anticoagulation, stop warfarin and start Eliquis 2.5mg twice daily -- you will not need INR monitoring while on Eliquis -- call ENT to arrange outpatient appointment to have Rhino Rocket removed on either or Monday -- follow up with PCP in 1 week for routine post hospitalization follow up and routine labs Assessment: See discharge summary
[2025-03-11 11:43] LABS: Glucose, Whole Blood 170 mg/dL (60-115)
[2025-03-11 12:00] VITALS: BP 172/79; PULSE 60; RESP 16; TEMP 36.7; O2SAT 91
--- NOTE | 2025-03-11 12:42 | MHC.CM.PN ---
pt dcd home self care
== END 2025-03-11 13:29 | disposition home or self-care (01) ==
LOC: HO.ED 11:21 → HO.EDOVER 12:08 → HO.S3 16:29
PROVIDERS: Physician Assistant Medical; Admitting Provider Student in an Organized Health Care Education/Training Program; Emergency Provider Emergency Medicine; PCP Physician Assistant; Visit Provider Student in an Organized Health Care Education/Training Program
DX: R04.0 Epistaxis (principal); R79.1 Abnormal coagulation profile; I48.0 Paroxysmal atrial fibrillation; I12.9 Hypertensive chronic kidney disease with stage 1 through stage 4 chronic kidney disease, or unspecified chronic kidney disease; E11.22 Type 2 diabetes mellitus with diabetic chronic kidney disease; N18.9 Chronic kidney disease, unspecified; Z79.01 Long term (current) use of anticoagulants; Z79.84 Long term (current) use of oral hypoglycemic drugs; Z79.899 Other long term (current) drug therapy
CPT/HCPCS: 36415; 36430; 80048; 80053; 82947; 85025; 85027; 85610; 85730; 86850; 86900; 86901; 96365; 99221; 99285; J3430; P9017

== ENCOUNTER → 2025-03-10 11:55 | Outpatient (BNV) | payer MEDICARE, SELFPAY | PROVIDERS: Admitting Provider Student in an Organized Health Care Education/Training Program; Emergency Provider Emergency Medicine; PCP Physician Assistant; Visit Provider Student in an Organized Health Care Education/Training Program | DX: R04.0 Epistaxis (principal); R79.1 Abnormal coagulation profile | CPT/HCPCS: 99223; 99239 ==

== ENCOUNTER 2025-04-08 07:19 | Outpatient (REF) | payer MEDICARE, SELFPAY ==
--- OUTSIDE RECORDS SUMMARY | 2023-10-26 05:30 | XMS_ITS ---
Author Organization [facility] Address [address] [place] [address] Care Team Providers Care Folder Seamer Name Role Phone Brian ROGEL, Nicolás Primary Care Provider Alex Padilla Unavailable [phone] Encounters Encounter Location Date Provider Diagnosis [facility] [address] [place] [address] 10/26/2023 Alex Rivera Plan Of Treatment No Information Progress Notes * Frankie VALLES DDOB: (85 yo M)Acc No.[id number]:10/26/2023 Progress Notes Patient: Nadege BARRERA Frankie Amara Provider: Aure Lancaster DPM :1940 A ge:83 Y S ex:Male Date:10/26/2023 Address:[address] [place], [place] [id number] Pcp:Nicolás Torres MD Subjective: * Chief Complaints: [...] DPM Date: 0 10/26/2023 Generated for Fauzia go/Yolette/Ismaelitting on: 07:22 AM EDT
--- OUTSIDE RECORDS SUMMARY | 2025-04-08 07:21 | XMS_ITS | Patient Health Record ---
Author Organization [facility] Address [address] [place] [address] Care Team Providers Care Vice President Compliance Name Role Phone Nicolás Torres MD Primary Care Provider Juanito Manriquez Unavailable [phone] Reason For Referral No Information Medications Medication [...] Problem Long-term current use of drug therapy (155885647) Encounter for long-term (current) use of other medications (V58.69) Active confirmed Problem Colon cancer screening (684881754) Colon cancer screening (V76.51) Active confirmed Problem History of adenomatous polyp of colon (067041305) History of adenomatous polyp of colon (V12.72) Active confirmed Plan Of Treatment Future Test Test Name Order Date COLONOSCOPY 04/26/2012 Insurance Providers Payer Name Payer Address Payer Phone Subscriber Number Group Number Insured Name Patient Relationship to Insured Coverage Start Date Coverage End Date [facility] [address] [facility] [place] [phone] [id number] ALKA LEES Self - patient is the insured Medical (General) History Medical History History ICD Code diabetes hypertension Denies [place],CVA,Lung disease,renal disease Tubular adenomas 2000 Kidney stone--[facility] Surgical History Surgery Date(Month/Year) appendectomy cholecystectomy 1967 tonsillectomy
--- OUTSIDE RECORDS SUMMARY | 2025-04-08 07:22 | XMS_ITS | Clinical Summary ---
Author Organization [facility] it[facility] Address [address] [place] [address] Care Team Providers Care Machine Try Out Setter Name Role Phone Unavailable Primary Care Provider [...] nts (1 - 1-dose 75+ series) 02/23/2016 Depression Screening 07/03/2024 COVID-19 Vaccine (1 - 2023-2 5 season) 2025 Influenza Vaccine (#1) 2025 HIB Vaccines Aged [...]
--- OUTSIDE RECORDS SUMMARY | 2025-04-08 07:22 | XMS_ITS | Patient Health Record ---
Author Organization [facility] [place] Address [address] [place] [address] Care Team Providers Care Numerical Analysis Group Manager Name Role Phone Nicolás Torres MD Primary Care Provider Unavaila Alex Menchaca Unavailable [phone] Reason For Referral No Information Plan Of Treatment No Information Insurance Providers Payer Name Payer Address Payer Phone Subscriber Number Group Number Insured Name Patient Relationship to Insured Coverage Start Date Coverage End Date [employer] [place] Medicare Advantage [address] [facility] [place] [address] [id number] Frankie Valles Self - patient is the insured
[2025-04-08 10:21] LABS: Appearance Urine Clear; Glucose Urine UA Negative (Negative); PH 5.0 (5.0-9.0); Specific Gravity - Urine 1.010 (1.005-1.025); UMIC TRIGGER UA YES
[2025-04-08 10:32] LABS: Hematocrit 25.6 % (42.0-52.0); Hemoglobin 8.2 g/dl (14.0-18.0); Mean Corpuscular HGB Conc 32.0 g/dl (31.0-36.0); Mean Corpuscular Hemoglobin 31.2 pg (27.0-33.0); Mean Corpuscular Volume 97.3 fL (80.0-98.0); NRBC Abs Auto 0.000 X10*3/uL (0.0-0.012); NRBC Pct Auto 0.0 /100WBC (0.0-0.2); Platelet Count 134 X10*3/uL (160-400); Red Blood Count 2.63 X10*6/uL (4.60-5.80); White Blood Count 3.9 X10*3/uL (4.8-10.8)
[2025-04-08 10:40] LABS: Anion Gap 11 (12-20); Blood Urea Nitrogen 33 mg/dL (9-16); Calcium 8.4 mg/dL (8.4-10.2); Carbon Dioxide 24 mmol/L (22-29); Chloride 109 mmol/L (96-108); Estimated Glomerular Filt Rate 37; Potassium 4.8 mmol/L (3.3-5.1); Sodium 139 mmol/L (135-145)
[2025-04-08 11:01] LABS: Microalbum/Creatinine Ratio Ur 391.0 ug/mg cr (<30); Total Protein Urine Random 45 mg/dL (<12)
== END 2025-04-08 07:20 | disposition home or self-care (01) ==
LOC: HO.HMGCLDS 07:19
PROVIDERS: PCP Physician Assistant; Visit Provider Internal Medicine Critical Care Medicine
DX: I12.9 Hypertensive chronic kidney disease with stage 1 through stage 4 chronic kidney disease, or unspecified chronic kidney disease (principal); R80.9 Proteinuria, unspecified; E11.51 Type 2 diabetes mellitus with diabetic peripheral angiopathy without gangrene; E11.22 Type 2 diabetes mellitus with diabetic chronic kidney disease; E11.65 Type 2 diabetes mellitus with hyperglycemia; N18.30 Chronic kidney disease, stage 3 unspecified; E78.2 Mixed hyperlipidemia; I48.0 Paroxysmal atrial fibrillation
CPT/HCPCS: 36415; 80048; 81001; 82043; 82570; 83036; 84156; 85027; 96127; 99212

== ENCOUNTER 2025-04-08 10:59 | Outpatient (AMB) | payer MEDICARE, SELFPAY ==
--- NOTE | 2025-04-08 11:13 | A.OFFPC_ITS ---
Vital Signs 04/08/25 11:14 04/08/25 11:37 Height 5 ft 8 in Weight 194 lb 6 oz BMI 29.6 BP 160/60 H 170/80 H Blood Pressure Location Lt brachial Position Sitting Pulse 55 Pulse Source Pulse Oximeter Temp 97.3 F Temp Source Temporal Artery Scan Pulse Oximetry (%) 96 Oxygen Delivery Method Room Air Intake Visit Reasons: f/u DMII/ HTN/ AFIB Intake Note: Patient is here to follow up on DM, HTN, Afib. 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 Firewall Administrator: Present Accompanied by: Spouse Allergies environmental allergies Adverse Reaction (Intermediate, Verified 04/08/25 11:29) Itchy Eyes Medication List - Last Reconciled 04/08/25 by Vinod Mary PA-C amlodipine 5 mg PO DAILY apixaban (Eliquis) 2.5 mg PO BID atenolol 25 mg PO DAILY atorvastatin 20 mg PO DAILY blood pressure test kit-large ([employer] Arm BP Monitor kit) As directed blood sugar diagnostic (FreeStyle Lite Strips) USE 1 STRIP TO CHECK BLOOD GLUCOSE ONCE DAILY clopidogrel 75 mg PO DAILY finasteride 5 mg PO DAILY gabapentin 100 mg PO TID 30 days glimepiride 2 mg PO BID 90 days lisinopril 20 mg (2 x 10 mg) PO DAILY metformin 1,000 mg PO BID multivitamin (Daily Multi-Vitamin tablet) 1 tab PO DAILY omega-3 fatty acids 1,000 mg PO DAILY pioglitazone 30 mg PO DAILY tamsulosin 0.4 mg PO DAILY Tobacco use date assessed: 04/08/25 Fall risk assessment: No Falls in past year Last assessed Fall Risk: 04/08/25 Dental Screening Dental Screen Date: 12/05/24 HPI f/u DMII/ HTN/ AFIB HPI Details atient is an 85-year-old male here today for a follow-up visit. Patient has a past medical history significant for paroxysmal AFib, hypertension, peripheral artery disease, BPH. -- >Patient recently admitted to [facility] for acute episodes of epistaxis. INR was very Elevated. During his hospitalization he was treated with vitamin K and FFP. His H&H stabilized. During his hospitalization he was transferred from warfarin to [facility] renally dosed at 2.5 mg b.i.d. Apparently patient was taking warfarin b.i.d. which caused a very super therapeutic INR. Currently doing much better, hemoglobin stabilized and no further bleeding noted. .. AFib: Patient is followed by [facility]. Now anticoagulated with renally dosed Eliquis. .. Hypertension: Blood pressure elevated today in office. .. Type 2 diabetes: Continues on metformin, pioglitazone for the control of his type 2 diabetes. His diabetes seems to be suboptimally controlled with A1c is 7.5. . Hyperlipidemia: He has stopped using atorvastatin 20 mg, though unclear reason. Will recheck lipid panel to ensure stable with goal LDL to be below 100 Laboratory Tests 11/22/24 01/16/25 03/11/25 11:34 13:36 06:04 WBC RBC Hgb PT/INR Fingerst Cl inic 2.5 Creatinine 1.52 H Estimated GFR 33 44 04/08/25 07:25 WBC 3.9 L RBC 2.63 L Hgb 8.2 L PT/INR Fingerst Cl inic Creatinine 1.75 H Estimated GFR 37 .. PFSH Medical History Diabetes mellitus with coincident hypertension Diabetes mellitus H/O coronary angiogram Diabetes Surgical History History of appendectomy History of cholecystectomy History of tonsillectomy History of removal of calculus of renal pelvis through percutaneous nephrostomy Toe amputee Family History Father CAD (coronary artery disease) Past heart attack Mother Diabetes Brother No problems noted. Brother Testicular cancer Brother S/P triple vessel bypass Daughter No problems noted. Daughter No problems noted. Maternal Grandmother Hypertension Social History Housing: House Alcohol intake: never Patient Tobacco Use Status: Never used Tobacco Tobacco use type: Cigarette e-Cigarette/Vaping Use: Never Used Second Hand Smoke Exposure: No Advance Directives Date on File: 03/10/25 service: No Current occupational status: retired Cognitive needs: No Hearing needs: No Vision needs: No Questionnaire PHQ-9 Over the last 2 weeks, how often have you been bothered by any of the following problems? 1. Little interest or pleasure in doing things: not at all 2. Feeling down, depressed, or hopeless: not at all 3. Trouble falling or staying asleep, or sleeping too much: not at all 4. Feeling tired or having little energy: not at all 5. Poor appetite or overeating: not at all 6. Feeling bad about yourself - or that you are a failure or have let yourself or your family down: not at all 7. Trouble concentrating on things, such as reading the newspaper or watching television: not at all 8. Moving or speaking so slowly that other people could have noticed. Or the opposite - being so fidgety or restless that you have been moving around a lot more than usual: not at all 9. Thoughts that you would be better off or of hurting yourself in some way: not at all Total score: 0 Depression Screening Interpretation: Negative Depression Screening Done: Yes 94092 - PHQ-9 Billing: Yes Source: Developed by Drs. Juanito Franklin, Yojana Blood, Monty Rehman and colleagues, with an educational saida from [employer] Thrive Questionnaire Date Thrive assessed: 03/11/25 I am a: Parent/Caregiver What is your living situation today?: I have a steady place to live Within the past 12 months, did the food you bought not last and you didn't have the money to get more?: Often true Within the past 12 months, did you worry whether your food would run out before you got money to buy more?: Often true Do you have trouble paying for medicines?: No Do you have trouble getting transportation to medical appointments?: No Do you have trouble paying your heating and electricity bill?: No Do you have trouble taking care of your child, family member or friend?: No Do you have trouble with day-to-day activities such as bathing, preparing meals, shopping, managing finances, etc.?: No Are you currently unemployed and looking for a job?: No Are you interested in more education?: No Please select the resources that you would like help with: None Currently or been in a relationship where the following occur: I choose not to answer THRIVE Score: 2 AUDIT C Alcohol Use Questionnaire (AUDIT-C) 1. How often do you have a drink containing alcohol?: Never Total Score: 0 KALE-7 AMB Questionnaire KALE-7 Date KALE - 7 assessed: 09/04/24 Feeling nervous, anxious, or on edge: 0 = Not at all Not being able to stop or control worryin = Not at all Worrying too much about different things: 0 = Not at all Trouble relaxin = Not at all Being so restless that it is hard to sit still: 0 = Not at all Becoming easily annoyed or irritable: 0 = Not at all Feeling afraid as if something awful might happen: 0 = Not at all Total KALE-7 score (0-4 normal; 5-9 mild; 10-14 moderate; 15-21 severe): 0 Source: Developed by Drs. Juanito Franklin, Yojana Blood, Monty Rehman and colleagues, with an educational saida from [employer] KALE-7 Assessment Billing KALE-7 Assessment Tool: KALE-7 Assessment 20883 Review of Systems Const Denies headache(s) Eyes Denies loss of vision ENT Denies vertigo, Denies dizziness, Denies headache(s) and Denies sore throat Card Denies chest pain, Denies leg edema and Denies lightheadedness Resp Denies cough, Denies hemoptysis and Denies wheezing GI Denies abdominal pain, Denies melena, Denies constipation, Denies diarrhea and Denies vomiting Denies dysuria, Denies urinary frequency and Denies urinary urgency Musc Denies arthralgias, Denies joint swelling, Denies numbness and Denies tingling Neuro Denies Abnormal speech present, Denies behavioral changes, Denies vertigo, Denies dizziness, Denies headache(s), Denies loss of vision, Denies memory loss, Denies numbness and Denies tingling Psych Denies anxiety, Denies behavioral changes, Denies depression, Denies memory loss and Denies panic attacks Ashwin/Lymph Denies easy bleeding and Denies easy bruising Aller/Immun Denies wheezing Physical exam (Primary Care) Vital Signs: Last Vital Signs Temp 97.3 F 04/08/25 11:14 Pulse 55 04/08/25 11:14 BP 170/80 H 04/08/25 11:37 Pulse Ox 96 04/08/25 11:14 Oxygen Delivery Method Room Air 04/08/25 11:14 Care Plan Goal for BP management: Will continue amlodipine 5, atenolol 25 and lisinopril 20. Considerations to increase lisinopril to 30 or 40 mg Next steps: Continue blood pressure monitoring at home and if elevated above 140 consistently will consider increasing lisinopril further BMI result Body Mass Index 29.6 Tobacco/Smoking Status: Tobacco use Status Tobacco use date assessed 04/08/25 04/08/25 11:21 Patient Tobacco Use Status Never used Tobacco 04/08/25 11:21 Tobacco use type Cigarette 04/08/25 11:21 e-Cigarette/Vaping Use Never Used 04/08/25 11:21 PHQ-9: PHQ-9 Score PHQ-9: Total score 0 04/08/25 11:31 Depression Screening Interpretation: Negative Thrive Assessment: Date of Thrive Assessment Date Thrive assessed 03/11/25 04/08/25 11:21 Currently or been in a relationship where the following occur: I choose not to answer Const General: healthy appearing, no acute distress, alert and awake Nutritional Appearance: well nourished Orientation/consciousness: oriented to person, oriented to place and oriented to time HENMT Ears: TM's normal bilaterally General nose exam: Normal nasal mucous membranes and turbinates present Eyes Conjunctivae: conjunctivae normal Sclerae: sclerae normal Pupils: Equal, round and reactive pupils present Neck Neck: Yes no lymphadenopathy and Yes no JVD Thyroid: Thyroid normal Carotids: no bruits Resp Effort & Inspection: normal respiratory effort and not tachypneic Auscultation: no crackles, no rales, no rhonchi and no wheezes Cardio Rate: regular rate Rhythm: regular rhythm Heart sounds: no murmurs and normal S1 and S2 GI Palpation (GI): Soft to palpation, nontender, no hepatomegaly and no splenomegaly Auscultation: normal bowel sounds Skin General skin exam: no rashes or lesions noted and dry skin Neuro General: oriented to person, oriented to place and oriented to time Cranial nerves: Yes Equal, round and reactive pupils present Speech: No Abnormal speech present Gait exam (Neuro): Normal gait present Motor exam (neuro): no tremor noted Extrem Right upper extremity: full ROM Left upper extremity: full ROM Right lower extremity: full ROM; no edema Left lower extremity: full ROM; no edema Psych Mental Status: mental status grossly normal Speech and movement: Normal speech and movement present Affect: normal affect Attitude: cooperative Thought process: Normal thought process present Results AMB Hemoglobin A1c AMB Hemoglobin A1c 7.6 % Last Edit by STANLEY Valle on 04/08/25 11:28 Results Reviewed Results Reviewed: Laboratory Last Values Hgb A1c (Clinic) 7.6 % (4.0-6.0) H 04/08/25 11:12 Coding Level of Care Code Est Pt Level 4 (46070) Diagnoses Type 2 diabetes mellitus with hyperglycemia, without long-term current use of insulin E11.65 Diabetes mellitus complication status: with hyperglycemia Diabetes mellitus technician terminal and repeater insulin use: without snf use Diabetes mellitus type: type 2 Paroxysmal A-fib I48.0 Primary hypertension I10 Hypertension type: primary hypertension Mixed hyperlipidemia E78.2 Hyperlipidemia type: mixed hyperlipidemia Additional Codes PHQ-9 - 66980 - PHQ-9 Billing: Yes ([id number]) KALE-7 Assessment Billing - KALE-7 Assessment Tool: KALE-7 Assessment 10258 ([id number]) Assessment & Plan Assessment & Plan (1) Diabetes mellitus: Comment: samemeds; 40 min reviewing chart evaluating patient and documenting Code(s): E11.9 - Type 2 diabetes mellitus without complications Category: Medical Qualifiers: Diabetes mellitus complication status: with hyperglycemia Diabetes mellitus snf insulin use: without technician terminal and repeater use Diabetes mellitus type: type 2 Qualified Code(s): E11.65 - Type 2 diabetes mellitus with hyperglycemia Plan: Patient's type 2 diabetes suboptimally controlled with A1c is 7.6 Due to his comorbidities and age will continue his current antihyperglycemic medication. Advised on reducing carbohydrates in his diet. Goal A1c to be below 7.5. (2) Paroxysmal A-fib: Code(s): I48.0 - Paroxysmal atrial fibrillation Category: Medical Plan: Patient followed by Cardiology annually. Continues on renally dosed Eliquis without any overt signs of bleeding. INRs has been stable. (3) HTN (hypertension): Code(s): I10 - Essential (primary) hypertension Category: Medical Qualifiers: Hypertension type: primary hypertension Qualified Code(s): I10 - Essential (primary) hypertension Plan: Patient's blood pressure elevated today in office. His lisinopril dose was recently increased to 20 mg. We did discuss possibly starting hydrochlorothiazide though due to kidney function will hold off on this for now. He will continue lisinopril 20 mg, atenolol and amlodipine 5 mg. Consideration has been made to increase amlodipine to 10 mg though already has pretty significant lower extremity edema continue want to make this worse due to fall risk. Advised to continue monitoring blood pressure at home with goal blood pressure to be below 140/90 (4) Hyperlipidemia: Code(s): E78.5 - Hyperlipidemia, unspecified Category: Medical Qualifiers: Hyperlipidemia type: mixed hyperlipidemia Qualified Code(s): E78.2 - Mixed hyperlipidemia Plan: Goal LDL to be below 100. Continue on atorvastatin 20 mg Will recheck lipid panel in if LDL above 100 will reconsider starting statin therapy. Orders: Orders AMB Hemoglobin A1c Today E11.65 - Type 2 diabetes mellitus with hyperglycemia, E11.9 - Type 2 diabetes mellitus without complications, I10 - Essential (primary) hypertension
[2025-04-08 11:14] VITALS: BP 160/60; PULSE 55; TEMP 36.3; O2SAT 96; BMI 29.6
[2025-04-08 11:37] VITALS: BP 170/80
== END 2025-04-08 11:51 | disposition home or self-care (01) ==
LOC: HO.HMCH 11:00
PROVIDERS: PCP Physician Assistant; Visit Provider Physician Assistant
DX: E11.65 Type 2 diabetes mellitus with hyperglycemia (principal); I48.0 Paroxysmal atrial fibrillation; I10 Essential (primary) hypertension; E78.2 Mixed hyperlipidemia; E11.9 Type 2 diabetes mellitus without complications

== ENCOUNTER 2025-04-17 10:12 | Outpatient (AMB) | payer MEDICARE, SELFPAY ==
--- OUTSIDE RECORDS SUMMARY | 2023-10-26 05:30 | XMS_ITS ---
Author Organization [facility] Address [address] [place] [phone] Care Team Providers Care Bronzer Name Role Phone Brian ROGEL, Nicolás Primary Care Provider Alex Padilla Unavailable [phone] Encounters Encounter Location Date Provider Diagnosis [facility] [address] [place] [address] 10/26/2023 Alex Rivera Plan Of Treatment No Information Progress Notes * Frankie VALLES DDOB: (85 yo M)Acc No.[id number]:10/26/2023 Progress Notes Patient: Nadege BARRERA Frankie Amara Provider: Aure Lancaster DPM :1940 A ge:83 Y S ex:Male Date:10/26/2023 Address:[address] [place], [place] [id number] Pcp:Nicolás Torres MD Subjective: * Chief Complaints: [...] 0 10/26/2023 Generated for Fauzia go/Yolette/Ismaelitting on: 12:28 PM EDT
--- NOTE | 2025-04-17 10:22 | HO.NEPHOV ---
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: No Accompanied by: Spouse Allergies environmental allergies Adverse Reaction (Intermediate, Verified 04/17/25 10:30) Itchy Eyes Medication List - Last Reconciled 04/17/25 by Dominic Chappell MD amlodipine 5 mg PO DAILY apixaban (Eliquis) 2.5 mg PO BID atenolol 25 mg PO DAILY atorvastatin 20 mg PO DAILY blood pressure test kit-large ([employer] Arm BP Monitor kit) As directed blood sugar diagnostic (FreeStyle Lite Strips) USE 1 STRIP TO CHECK BLOOD GLUCOSE ONCE DAILY clopidogrel 75 mg PO DAILY finasteride 5 mg PO DAILY gabapentin 100 mg PO TID 30 days glimepiride 2 mg PO BID 90 days metformin 1,000 mg PO BID multivitamin (Daily Multi-Vitamin tablet) 1 tab PO DAILY omega-3 fatty acids 1,000 mg PO DAILY pioglitazone 30 mg PO DAILY tamsulosin 0.4 mg PO DAILY HPI Comments Details: 84-year-old gentleman with past medical history of diabetes mellitus, hyperlipidemia, atrial fibrillation is here for follow-up visit Diabetes mellitus: Since 35 years, on glimepiride 2 mg b.i.d., gabapentin 100 mg TID, pioglitazone 30 mg daily. Last HbA1c 7.6. Blood sugars are around 110s at home. Hypertension: Since he was 46, on amlodipine 5, atenolol 25, lisinopril 20 mg, tamsulosin 0.4 mg BPH: has some with trouble urinating in the morning,on tamsulosin also has a kidney stone. Atrial fibrillation: on apixaban for anticoagulation, atenolol 25mg daily for rate control. visited ER last month due to epistaxis, switched warfarin to apixaban 2.5 PFSH Medical History Diabetes mellitus with coincident hypertension Diabetes mellitus H/O coronary angiogram Diabetes Surgical History History of appendectomy History of cholecystectomy History of tonsillectomy History of removal of calculus of renal pelvis through percutaneous nephrostomy Toe amputee Family History Father CAD (coronary artery disease) Past heart attack Mother Diabetes Brother No problems noted. Brother Testicular cancer Brother S/P triple vessel bypass Daughter No problems noted. Daughter No problems noted. Maternal Grandmother Hypertension Social History Housing: House Alcohol intake: never Patient Tobacco Use Status: Never used Tobacco Tobacco use type: Cigarette e-Cigarette/Vaping Use: Never Used Second Hand Smoke Exposure: No Advance Directives Date on File: 03/10/25 service: No Current occupational status: retired Cognitive needs: No Hearing needs: No Vision needs: No Review of Systems Const Details: Const : no body aches, no chills, + weakness, + fatigue Eyes: no blurry vision and no change in vision ENT: no bleeding gums and no change in voice, no dizziness Card: no chest pain, no shortness of breath Resp: no cough, no excessive phlegm production, no SOB GI: no abdominal pain and no nausea, no vomiting : no hematuria, no urinary frequency and no difficulty voiding Musc: no abnormal gait, no bone pain Neuro: no abnormal movements, no weakness Psych: no behavioral changes and no change in appetite Endo: no change in body appearance, no cold intolerance, no excessive sweating and no fatigue Physical Exam General: not in any acute distress, comfortable, sitting on the chair Nutritional Appearance: well nourished and weight Eyes: normal position, no icterus Neck: No lymphadenopathy, no thyromegaly Resp: bilateral air entry equal, no added sounds present Cardio: normal S1, S2 heard, no murmur heard, no edema GI: soft, nontender, no guarding, no hepatosplenomegaly : bladder normal to inspection, bladder normal to palpation, no renal angle tenderness Skin: no rashes or lesions noted and elasticity normal Neuro: oriented to person, oriented to place, oriented to time and moves all extremities Results Reviewed Nephrology Results: Hgb, (14.0-18.0) 8.2 g/dl L 04/08/25 WBC, (4.8-10.8) 3.9 X10*3/uL L 04/08/25 Plt Count, (160-400) 134 X10*3/uL L 04/08/25 Sodium, (135-145) 139 mmol/L 04/08/25 Potassium, (3.3-5.1) 4.8 mmol/L 04/08/25 Chloride, (96-108) 109 mmol/L H 04/08/25 Carbon Dioxide, (22-29) 24 mmol/L 04/08/25 BUN, (9-16) 33 mg/dL H 04/08/25 Creatinine, (0.5-1.4) 1.75 mg/dL H 04/08/25 Calcium, (8.4-10.2) 8.4 mg/dL 04/08/25 Urine Protein, (Neg-Trace) 30 (1+) mg/dL H 04/08/25 Urine Creatinine 73.40 mg/dL 04/08/25 Renal US 02/26/25 Assessment & Plan Assessment & Plan (1) HTN (hypertension): Code(s): I10 - Essential (primary) hypertension Category: Medical Qualifiers: Hypertension type: primary hypertension Qualified Code(s): I10 - Essential (primary) hypertension (2) CKD (chronic kidney disease) stage 3, GFR 30-59 ml/min: Code(s): N18.30 - Chronic kidney disease, stage 3 unspecified Category: Medical (3) Proteinuria: Code(s): R80.9 - Proteinuria, unspecified Category: Medical Plan Chronic kidney disease stage IIIb A3: - possibly secondary to diabetic kidney disease but would like to rule out other etiologies - no family history of CKD, he has history of renal stones several decades ago, no history of NSAID use. - creatinine was 1.6 on 01/05/2024 now increased to 2.04 in December, now down to 1.75; GFR 37 - urine albumin creatinine ratio: decreased to 391 from 522 after increasing dose of lisinopril - Urinalysis normal - Renal ultrasound showed 12 cm right kidney, 13.4 cm left kidney. Bilateral cortical thinning and bilateral multi renal cyst, the largest 1 being 3.5 into 1.3 cm in the right kidney. Of note, Bosniak class 1 renal cyst measuring 4.2 cm in right lower pole in 01/2024. We will repeat a kidney ultrasound in 1-2 years. - avoid nephrotoxic medications not limited to NSAIDs, contrast etc. - importance of diet, weight loss, adequate blood pressure control, stopped smoking we will explained to patient - negative hepatitis panel, HIV, LUKE, ANCA; normal complements, SPEP, UPEP, serum free light chains, PLA2R. SPEP suggesting decrease in albumin - could not do SGLT2 inhibitors due to very high cost 700 dollars for Jardiance, 170 dollars for Farxiga - Currently GFR stable; if the GFR drops below 30 recommended to switch glimepiride to glipizide- still there is a slightly increased risk of hypoglycemia with it. Safer alternatives include linagliptin> sitagliptin as it can be used even in ESRD. Pioglitazone needs to be stopped as he has bilateral leg swelling, will communicate with his PCP. Hypertension: - target blood pressures less than 130/90 mm Hg; current blood pressure 115/52 - on amlodipine 5, atenolol 25, lisinopril 20, tamsulosin 0.4 - will discontinue amlodipine and switch to lisinopril 20-HCTZ 25 mg combination as he has leg swelling. Anemia of chronic kidney disease: - normal iron, TIBC, ferritin levels - recent drop in Hb due to epistaxis Mineral bone disease: - normal calcium, phos, vitamin-D 39.1 and PTH levels 46 Orders: Orders Basic Metabolic Panel 6 Months I10 - Essential (primary) hypertension, N18.30 - Chronic kidney disease, stage 3 unspecified, R80.9 - Proteinuria, unspecified UA and rflx microscopic 6 Months I10 - Essential (primary) hypertension, N18.30 - Chronic kidney disease, stage 3 unspecified, R80.9 - Proteinuria, unspecified Microalbumin, Random (w Creat) 6 Months I10 - Essential (primary) hypertension, N18.30 - Chronic kidney disease, stage 3 unspecified, R80.9 - Proteinuria, unspecified IRON PROFILE 6 Months I10 - Essential (primary) hypertension, N18.30 - Chronic kidney disease, stage 3 unspecified, R80.9 - Proteinuria, unspecified Complete Blood Count no Diff 6 Months I10 - Essential (primary) hypertension, N18.30 - Chronic kidney disease, stage 3 unspecified, R80.9 - Proteinuria, unspecified Total Protein Urine Random 6 Months I10 - Essential (primary) hypertension, N18.30 - Chronic kidney disease, stage 3 unspecified, R80.9 - Proteinuria, unspecified Creatinine Urine 6 Months I10 - Essential (primary) hypertension, N18.30 - Chronic kidney disease, stage 3 unspecified, R80.9 - Proteinuria, unspecified Medications: New lisinopril-hydrochlorothiazide 20-25 mg 1 tab PO DAILY 90 tabs 3RF Discontinued amlodipine Discontinued Reason: Doctor's Order 5 mg PO DAILY 90 tabs 3RF Coding Level of Care Code Est Pt Level 4 (13250) Diagnoses Primary hypertension I10 Hypertension type: primary hypertension CKD (chronic kidney disease) stage 3, GFR 30-59 ml/min N18.30 Proteinuria R80.9
[2025-04-17 10:26] VITALS: BP 120/50; PULSE 63; O2SAT 97
--- OUTSIDE RECORDS SUMMARY | 2025-04-17 12:29 | XMS_ITS | Clinical Summary ---
Author Organization [facility] Address [address] [place] [address] Care Team Providers Care Fine Arts Instructor Name Role Phone Unavailable Primary Care Provider [...]
--- OUTSIDE RECORDS SUMMARY | 2025-04-17 12:29 | XMS_ITS | Patient Health Record ---
Author Organization [facility] Address [address] [place] [address] Care Team Providers Care Process Mold Technician Name Role Phone Nicolás Torres MD Primary Care Provider Juanito Manriquez Unavailable [phone] Reason For Referral No Information Medications Medication SIG (Take, Route, Frequency, Duration) Notes Start Date End Date Status Osteo Bi-Flex Adv Double St Active Fish Oil 07/03/2024 07/03/2024 Active Multi Vitamin/Minerals Active Flaxseed Oil Active Lisinopril 2.5mg Act velia Aspir-81 81mg Active Glimepiride 2mg Acti ve Atenolol 50mg Active Actos 30mg Active Colyte with Flavor Packs 240 GM 1 ml one time Orally Once; Duration: 1 day(s) 05/02/2012 Active metFORMIN HCl 1000mg Active Problems Problem Type SNOMED Code ICD Code Onset Dates Problem Status W/U Status Risk Notes Problem Long-term current use of drug therapy (624049725) Encounter for long-term (current) use of other medications (V58.69) Active confirmed Problem Colon cancer screening (677965527) Colon cancer screening (V76.51) Active confirmed Problem History of adenomatous polyp of colon (587228377) History of adenomatous polyp of colon (V12.72) Active confirmed Plan Of Treatment Future Test Test Name Order Date COLONOSCOPY 04/26/2012 Insurance Providers Payer Name Payer Address Payer Phone Subscriber Number Group Number Insured Name Patient Relationship to Insured Coverage Start Date Coverage End Date [facility] [address] [place] [phone] [id number] ALKA LEES Self - patient is the insured Medical (General) History Medical History History ICD Code diabetes hypertension Denies [place],CVA,Lung disease,renal disease Tubular adenomas 2000 Kidney stone--[facility] Surgical History Surgery Date(Month/Year) appendectomy cholecystectomy 1967 tonsillectomy
--- OUTSIDE RECORDS SUMMARY | 2025-04-17 12:29 | XMS_ITS | Patient Health Record ---
Author Organization [facility] Address [address] [place] [address] Care Team Providers Care Canteen Manager Name Role Phone Nicolás Torres MD Primary Care Provider Unavaila Alex Menchaca Unavailable [phone] Reason For Referral No Information Plan Of Treatment No Information Insurance Providers Payer Name Payer Address Payer Phone Subscriber Number Group Number Insured Name Patient Relationship to Insured Coverage Start Date Coverage End Date [employer] [place] [employer]age [address] [place] [address] [id number] Frankie Valles Self - patient is the insured
== END 2025-04-17 11:05 | disposition home or self-care (01) ==
LOC: HO.HKA 10:13
PROVIDERS: PCP Physician Assistant; Visit Provider Internal Medicine Critical Care Medicine
DX: I10 Essential (primary) hypertension (principal); N18.30 Chronic kidney disease, stage 3 unspecified; R80.9 Proteinuria, unspecified
CPT/HCPCS: 99214

== ENCOUNTER → 2025-04-17 10:12 | Outpatient (BNVA) | payer MEDICARE, SELFPAY | PROVIDERS: PCP Physician Assistant; Visit Provider Internal Medicine Critical Care Medicine | DX: I10 Essential (primary) hypertension (principal); N18.30 Chronic kidney disease, stage 3 unspecified; R80.9 Proteinuria, unspecified | CPT/HCPCS: 99212 ==

== ENCOUNTER 2025-05-12 21:38 | Emergency (ER) | payer MEDICARE, SELFPAY ==
[2025-05-12 21:41] VITALS: BP 172/72; PULSE 61; RESP 16; TEMP 36.3; O2SAT 95
[2025-05-12 21:56] VITALS: BP 181/62; PULSE 65; RESP 16; TEMP 36.5; O2SAT 95
[2025-05-12 22:03] LABS: MANUAL DIFF FLAG NO
[2025-05-12 22:16] LABS: Anion Gap 14 (12-20); Blood Urea Nitrogen 33 mg/dL (9-16); Calcium 8.9 mg/dL (8.4-10.2); Carbon Dioxide 22 mmol/L (22-29); Chloride 108 mmol/L (96-108); Creatinine Clr Calc Pharmacy 31.7; Estimated Glomerular Filt Rate 34; Potassium 5.1 mmol/L (3.3-5.1); Sodium 139 mmol/L (135-145)
[2025-05-12 22:17] LABS: Alanine Aminotransferase 14 U/L (0-40); Albumin Level 3.9 g/dL (3.5-5.0); Alkaline Phosphatase 61 U/L (39-117); Aspartate Amino Transferase 22 U/L (5-37); Hematocrit 27.4 % (42.0-52.0); Hemoglobin 8.8 g/dl (14.0-18.0); Imm Gran Abs Auto 0.01 X10*3/uL (0.00-0.03); Imm Gran Pct Auto 0.2 % (0.0-0.4); Lymphocytes Absolute Auto 1.2 X10*3/uL (1.2-4.9); Mean Corpuscular HGB Conc 32.1 g/dl (31.0-36.0); Mean Corpuscular Hemoglobin 30.9 pg (27.0-33.0); Mean Corpuscular Volume 96.1 fL (80.0-98.0); NRBC Abs Auto 0.000 X10*3/uL (0.0-0.012); NRBC Pct Auto 0.0 /100WBC (0.0-0.2); Platelet Count 130 X10*3/uL (160-400); Red Blood Count 2.85 X10*6/uL (4.60-5.80); Total Protein 6.5 g/dL (6.5-8.0); White Blood Count 4.5 X10*3/uL (4.8-10.8)
[2025-05-12 22:30] LABS: INTERNATIONAL NORM RATIO 1.1 (0.9-1.1); Prothrombin Time 13.5 SEC (11.2-13.5)
--- OUTSIDE RECORDS SUMMARY | 2025-05-12 23:26 | XMS_ITS | Clinical Summary ---
Author Organization [facility] it[facility] Address [address] [place] [address] Care Team Providers Care Parachute Taper Name Role Phone Unavailable Primary Care Provider [...]
--- OUTSIDE RECORDS SUMMARY | 2025-05-12 23:26 | XMS_ITS | Patient Health Record ---
Author Organization [facility] Address [address] [place] [address] Care Team Providers Care Special Education Preschool Teacher Name Role Phone Nicolás Torres MD Primary Care Provider Juanito Manriquez Unavailable [phone] Reason For Referral No Information Medications Medication [...] Problem Long-term current use of drug therapy (333218494) Encounter for long-term (current) use of other medications (V58.69) Active confirmed Problem Colon cancer screening (424851755) Colon cancer screening (V76.51) Active confirmed Problem History of adenomatous polyp of colon (427087759) History of adenomatous polyp of colon (V12.72) Active confirmed Plan Of Treatment Future Test Test Name Order Date COLONOSCOPY 04/26/2012 Insurance Providers Payer Name Payer Address Payer Phone Subscriber Number Group Number Insured Name Patient Relationship to Insured Coverage Start Date Coverage End Date [facility] [address] [place] [phone] [id number] ALKA LEES Self - patient is the insured Medical (General) History Medical History History ICD Code diabetes hypertension Denies [place],CVA,Lung disease,renal disease Tubular adenomas 2000 Kidney stone--[facility] Surgical History Surgery Date(Month/Year) appendectomy cholecystectomy 1967 tonsillectomy
--- NOTE | 2025-05-13 00:07 | ED.EPISTAXIS ---
History of Present Illness General Chief Complaint: Epistaxis Stated Complaint: bleeding from nose Time Seen by Provider: 05/12/25 22:55 Source: patient Mode of arrival: ambulatory Limitations: no limitations History of Present Illness ED Provider: Dr. Alise Rees [facility] Narrative: 85-year-old male with a history of atrial fibrillation on Eliquis presenting with a nosebleed that has been ongoing for the last couple of hours. Admits that he had this same issue about 2 months ago and had to have nasal packing at that time. He was recently switched from warfarin to Eliquis and has been taking that as prescribed, twice daily. Last dose was this morning. He did not take it tonight when he started to have a nosebleed. Has had some nasal congestion but no significant upper respiratory symptoms including fever, cough, chest pain, difficulty breathing, abdominal pain, nausea or vomiting. He does not feel like blood is going down the back of his throat. Has been eating and drinking normally. No bowel changes or urinary complaints. Related Data Home Medications ?Medication ?Instructions ?Recorded ?Confirmed tamsulosin 0.4 mg capsule 0.4 mg PO DAILY 05/15/20 04/17/25 multivitamin (Daily Multi-Vitamin 1 tab PO DAILY 07/29/20 04/17/25 tablet) atenolol 25 mg tablet 25 mg PO DAILY 03/10/25 04/17/25 atorvastatin 20 mg tablet 20 mg PO DAILY 03/10/25 04/17/25 clopidogrel 75 mg tablet 75 mg PO DAILY 03/10/25 04/17/25 finasteride 5 mg tablet 5 mg PO DAILY 03/10/25 04/17/25 omega-3 fatty acids 1,000 mg 1,000 mg PO DAILY 03/10/25 04/17/25 capsule Previous Rx's ?Medication ?Instructions ?Recorded blood pressure test kit-large #1 ea 12/14/23 (CallsFreeCalls Arm BP Monitor kit) metformin 1,000 mg tablet 1,000 mg PO BID #180 tabs 10/07/24 blood sugar diagnostic (FreeStyle #100 ea 10/22/24 Lite Strips) apixaban 2.5 mg tablet (Eliquis) 2.5 mg PO BID #180 tabs 03/11/25 gabapentin 100 mg capsule 100 mg PO TID 30 days #90 caps 03/31/25 glimepiride 2 mg tablet 2 mg PO BID 90 days #180 tabs 04/03/25 lisinopril 20 1 tab PO DAILY #90 tabs 04/17/25 mg-hydrochlorothiazide 25 mg tablet Allergies Allergy/AdvReac Type Severity Reaction Status Date / Time environmental allergies AdvReac Intermediate Itchy Eyes Verified 05/12/25 21:46 Review of Systems Review of Systems: as per HPI, full review of systems performed and negative but for the above mentioned pertinent positives and negatives. [facility] Past Medical History Medical History Diabetes mellitus with coincident hypertension Diabetes mellitus H/O coronary angiogram Diabetes Surgical History History of appendectomy History of cholecystectomy History of tonsillectomy History of removal of calculus of renal pelvis through percutaneous nephrostomy Toe amputee Family History Family History Father CAD (coronary artery disease) Past heart attack Mother Diabetes Brother No problems noted. Brother Testicular cancer Brother S/P triple vessel bypass Daughter No problems noted. Daughter No problems noted. Maternal Grandmother Hypertension Social History Social History Housing: House Alcohol intake: never Patient Tobacco Use Status: Never used Tobacco Tobacco use type: Cigarette e-Cigarette/Vaping Use: Never Used Second Hand Smoke Exposure: No Advance Directives: Yes Advance Directives on File: Yes Advance Directives Date on File: 03/10/25 Do you have a plan to hurt others: No Plan service: No Current occupational status: retired Cognitive needs: No Hearing needs: No Vision needs: No Physical Exam Exam: Exam: GENERAL: Chronically ill-appearing, conversant, no acute distress. SKIN: Normal skin color for ethnicity, warm, dry, no rashes noted. HEENT: Normocephalic, atraumatic, no stridor, scant blood in the posterior oropharynx, no bleeding in the left Palma, right Palma has small amount of oozing along the nasal septum with associated hyperemia, no active bleeding vessels, EOMI. NECK: Soft, supple, full ROM, midline structures nontender, no step-offs, no deformities, no lymphadenopathy. CHEST: Heart regular rate and rhythm, no murmurs, symmetric chest rise and fall. PULMONARY: Clear to auscultation bilaterally, no labored breathing, no wheezes/rhales/ rhonchi. ABDOMINAL: Soft, nondistended, nontender, positive bowel sounds in all quadrants. : Deferred. MUSCULOSKELETAL: Normal tone, full range of motion, no deformities, no peripheral edema. NEURO: Alert and oriented to person, CN II through XII intact, no focal neurologic deficits. PSYCHIATRIC: Flat affect, fluid speech, appropriate demeanor. Vital Signs: Vital Signs: Last Vital Signs Temp 97.6 F 05/13/25 01:09 Pulse 58 05/13/25 01:09 Resp 18 05/13/25 01:09 BP 167/62 H 05/13/25 01:09 Pulse Ox 96 05/13/25 01:09 O2 Del Method Room Air 05/13/25 01:09 BMI result Body Mass Index 30.0 Medications Administered Discontinued Medications Generic Name Dose Route Start Last Admin Trade Name Freq PRN Reason Stop Dose Admin Tranexamic Acid 1,000 mg/ 60 mls @ 360 mls/hr 05/12/25 23:33 05/13/25 00:40 Sodium Chloride IV 05/12/25 23:42 Not Given ONCE ONE Medical Decision Making Medical Decision Making [facility] Narrative: 85-year-old male with a history of atrial fibrillation on Eliquis presenting with recurrent epistaxis. Differential diagnosis includes anterior epistaxis, posterior epistaxis, coagulopathy, hypertension, URI, nasal trauma, among others. Exam shows evidence of mild hyperemia and slight oozing from the nasal septum on the right without any active bleeding. Application of topical TXA using a cotton ball was performed. Bleeding completely resolved. Patient feeling improved. Told to resume his Eliquis tomorrow. He is not significantly anemic. His PT INR has normalized after coming off of warfarin. Encouraged follow up with the ENT, PCP. Discharged home in stable condition. Differential Diagnosis Differential Diagnoses: The differential diagnosis associated with the presentation includes (as above) Admission/Observation Consideration of admission/observation: Escalation of care including admission/observation considered Lab Data [facility] Lab Attestation statement: I reviewed the patient's lab results. 05/12/25 21:58 05/12/25 21:58 Labs: Lab Results 05/12/25 Range/Units 21:58 WBC 4.5 L (4.8-10.8) X10*3/uL RBC 2.85 L (4.60-5.80) X10*6/uL Hgb 8.8 L (14.0-18.0) g/dl Hct 27.4 L (42.0-52.0) % MCV 96.1 (80.0-98.0) fL MCH 30.9 (27.0-33.0) pg MCHC 32.1 (31.0-36.0) g/dl RDW 13.3 (11.0-16.0) % Plt Count 130 L (160-400) X10*3/uL MPV 10.9 (9.4-12.4) fL Immature Gran % (Auto) 0.2 (0.0-0.4) % Neut % (Auto) 60.1 (45-73) % Lymph % (Auto) 27.0 (20-40) % Stearns % (Auto) 9.6 (2-11) % Eos % (Auto) 2.7 (0-4) % Baso % (Auto) 0.4 (0-2) % Lymph # (Auto) 1.2 (1.2-4.9) X10*3/uL Stearns # (Auto) 0.4 (0.1-1.2) X10*3/uL Eos # (Auto) 0.1 (0.0-0.4) X10*3/uL Baso # (Auto) 0.0 (0.0-0.2) X10*3/uL Abs Immat Gran (auto) 0.01 (0.00-0.03) X10*3/uL Absolute Neuts (auto) 2.7 (2.0-8.3) x10*3/uL Absolute Nucleated RBC 0.000 (0.0-0.012) X10*3/uL Nucleated RBC % (auto) 0.0 (0.0-0.2) /100WBC PT 13.5 (11.2-13.5) SEC INR 1.1 (0.9-1.1) Sodium 139 (135-145) mmol/L Potassium 5.1 (3.3-5.1) mmol/L Chloride 108 (96-108) mmol/L Carbon Dioxide 22 (22-29) mmol/L Anion Gap 14 (12-20) BUN 33 H (9-16) mg/dL Creatinine 1.88 H (0.5-1.4) mg/dL Estim Creat Clear Calc 31.7 Estimated GFR 34 Random Glucose 145 H (60-115) mg/dL Calcium 8.9 (8.4-10.2) mg/dL Total Bilirubin 0.4 (0.0-1.0) mg/dL AST 22 (5-37) U/L ALT 14 (0-40) U/L Alkaline Phosphatase 61 (39-117) U/L Total Protein 6.5 (6.5-8.0) g/dL Albumin 3.9 (3.5-5.0) g/dL External Record Review External record reviewed: Inpatient record Chronic Conditions Patient?s care impacted by: Diabetes, Hypertension and Other (afib) Social Determinants Patient?s care significantly limited by Social Determinants of Health including: Other Social Determinant of Health Procedures Epistaxis Control Time Out Performed: No Nostril: Yes right Direct inspection: Yes anterior source identified Direct inspection method: Yes otoscope Clots removed by: Yes blowing nose Epistaxis treatment: Yes TXA soaked gauze Results of treatment: Yes bleeding controlled Complications: Yes none Discharge Plan Discharge Clinical Impression: Acute anterior epistaxis, Current use of anticoagulant therapy Patient Disposition: Home, Self-Care Instructions: Nosebleed (ED) Additional Instructions: Do not put anything in your nose even if it is bleeding. It will only cause more trauma and more bleeding. Instead, blow your nose, pinched your nostrils and tilt your head forward. Try not to swallow any blood as this can make you nauseous. If your nose does not stopped bleeding after these measures, return to the emergency department immediately. Follow up with your primary care doctor as soon as possible. Return to the hospital with any new or worsening symptoms. Continue taking your Eliquis tomorrow. Prescriptions: No Action metformin 1,000 mg tablet 1,000 mg PO BID Qty: 180 3RF (DME) FreeStyle Lite Strips Strip See Rx Instructions .ROUTE .COMPLEX Qty: 100 0RF Dose Instruction: USE 1 STRIP TO CHECK BLOOD GLUCOSE ONCE DAILY Rx Instructions: USE 1 STRIP TO CHECK BLOOD GLUCOSE ONCE DAILY gabapentin 100 mg capsule 100 mg PO TID 30 Days Qty: 90 2RF glimepiride 2 mg tablet 2 mg PO BID 90 Days Qty: 180 0RF atorvastatin 20 mg tablet 20 mg PO DAILY atenolol 25 mg tablet 25 mg PO DAILY clopidogrel 75 mg tablet 75 mg PO DAILY finasteride 5 mg tablet 5 mg PO DAILY omega-3 fatty acids 1,000 mg Capsule 1,000 mg PO DAILY Eliquis 2.5 mg tablet 2.5 mg PO BID Qty: 180 0RF Rx Instructions: Take one tablet twice a day multivitamin [Daily Multi-Vitamin] Tablet 1 tab PO DAILY tamsulosin 0.4 mg capsule 0.4 mg PO DAILY (DME) blood pressure test kit-large [CallsFreeCalls Arm BP Monitor] Kit See Rx Instructions .Route Qty: 1 0RF Rx Instructions: As directed lisinopril-hydrochlorothiazide 20-25 mg tablet 1 tab PO DAILY Qty: 90 3RF Interventions: ED Discharge Assessment Last Done: 05/13/25 01:09 Discharge Date/Time: 05/13/25 01:10 Print Language: Iraqi
[2025-05-13 00:36] VITALS: BP 167/62; PULSE 58; RESP 18; TEMP 36.4; O2SAT 96
[2025-05-13 01:09] VITALS: BP 167/62; PULSE 58; RESP 18; TEMP 36.4; O2SAT 96
== END 2025-05-13 01:10 | disposition home or self-care (01) ==
PROVIDERS: Emergency Provider Emergency Medicine; PCP Physician Assistant
DX: R04.0 Epistaxis (principal); I48.91 Unspecified atrial fibrillation; E11.9 Type 2 diabetes mellitus without complications; Z79.01 Long term (current) use of anticoagulants; Z79.899 Other long term (current) drug therapy
CPT/HCPCS: 36415; 80053; 85025; 85610; 99283